=== PATIENT | male | born 1950 | race Hispanic/Latino ===

== ENCOUNTER 2018-07-01 00:40 | Emergency (ER) | payer BC ==
[~2018-07-01] VITALS: Ht 175.3 cm; Wt 95.7 kg
[~2018-07-01 00:40] MED LIST: CARAFATE1 GM/10 ML PO; FLOMAX0.4 MG PO; KLOR-CON 88 MEQ PO; LISINOPRIL-HCT1 EACH PO; METOPROLOL SUCC50 MG PO; MULTAQ 400MG T400 MG PO; PANTOPRAZOLE SO40 MG PO; SAVAYSA PO
[2018-07-01] MEDS ORDERED: LIDOCAINE JELLY 2% 10ML URO-JET TOP ONE (00:45)
[2018-07-01 02:28] LABS: BILIRUBIN,URINE NEGATIVE (NEGATIVE); CLARITY,URINE CLEAR (CLEAR); COLOR,URINE YELLOW (YELLOW); KETONES,URINE NEGATIVE (NEGATIVE); LEUKOCYTE ESTERASE ,URINE NEGATIVE (NEGATIVE); NITRITE,URINE NEGATIVE (NEGATIVE); PROTEIN,URINE DIPSTICK NEGATIVE (NEGATIVE); URINE UROBILINOGEN 0.2 mg/dL (0.2 - 1)
[2018-07-01 02:29] LABS: BACTERIA,URINE RARE /HPF; EPITHELIAL CELLS,URINE RARE /LPF; MUCUS,URINE MANY (RARE)
[2018-07-01 02:53] VITALS: BP 148/87
[2018-07-08] MEDS ORDERED: LISINOPRIL10 MG PO (09:37)
[2018-07-08] MEDS ORDERED: NEXIUM40 MG PO (09:38)
[2018-07-08] MEDS ORDERED: ASPIR 8181 MG PO (09:38)
[2018-07-08] MEDS ORDERED: HYDROCHLOROTHIA25 MG PO (09:38)
[2018-07-08] MEDS ORDERED: CEFDINIR300 MG PO (09:39)
== END 2018-07-01 03:29 | disposition home or self-care (01) ==
LOC: ER 00:40
DX: R33.9 Retention of urine, unspecified (principal); N40.1 Benign prostatic hyperplasia with lower urinary tract symptoms; N30.91 Cystitis, unspecified with hematuria; I10 Essential (primary) hypertension; I48.91 Unspecified atrial fibrillation; K21.9 Gastro-esophageal reflux disease without esophagitis
CPT/HCPCS: 51700; 81001; 87086; 99282

== ENCOUNTER 2018-07-10 12:00 | Observation (INO) | payer BC ==
[2018-07-05 14:14] LABS: BASOPHILS % 0.4 % (0.0-1.0); EOSINOPHILS # (AUTO) 0.2 (0.0-0.4); EOSINOPHILS % 3.1 % (0.0-6.0); HEMATOCRIT 40.8 % (38.2-49.6); HEMOGLOBIN 13.4 g/dL (14.0-18.0); LYMPHOCYTES # (AUTO) 1.8 (1.0-3.2); LYMPHOCYTES % 23.9 % (18.0-39.1); MEAN CORPUSCULAR HEMOGLOBIN 26.3 pg (28-32); MEAN CORPUSCULAR HGB CONC 32.8 g/dL (31-35); MONOCYTES # (AUTO) 0.6 (0.2-0.8); MONOCYTES % 8.3 % (4.4-11.3); NEUTROPHILS # (AUTO) 4.7 (2.1-6.9); PLATELET COUNT 254 x10e3/uL (140-360); RED CELL DISTRIBUTION WIDTH 14.3 % (11.7-14.4)
[2018-07-05 14:31] LABS: ALANINE AMINOTRANSFERASE 26 IU/L (0-55); ALBUMIN/GLOBULIN RATIO 1.4 (0.8-2.0); ALKALINE PHOSPHATASE 65 IU/L (40-150); ANION GAP 13.7 mmol/L (8-16); BLOOD UREA NITROGEN 19 mg/dL (7-26); BUN/CREATININE RATIO 21 (6-25); CALCIUM 9.3 mg/dL (8.4-10.2); CARBON DIOXIDE 27 mmol/L (22-29); CHLORIDE 102 mmol/L (98-107); CREATININE, SERUM 0.89 mg/dL (0.72-1.25); EST GLOMERULAR FILTRATION RATE > 60 ML/MIN (60-); GLUCOSE 134 mg/dL (74-118); POTASSIUM 3.7 mmol/L (3.5-5.1); SODIUM 139 mmol/L (136-145)
--- NOTE | 2018-07-05 14:41 | Diagnostic Imaging Report ---
EXAMINATION: CHEST 2 VIEWS INDICATION: Urinary retention. Preop COMPARISON: None FINDINGS: TUBES and LINES: None. LUNGS: Lungs are well inflated. Lungs are clear. There is no evidence of pneumonia or pulmonary edema. PLEURA: No pleural effusion or pneumothorax. HEART AND MEDIASTINUM: The cardiomediastinal silhouette is unremarkable. BONES AND SOFT TISSUES: No acute osseous lesion. Soft tissues are unremarkable. Surgical clips in the left upper abdomen. UPPER ABDOMEN: No free air under the diaphragm. IMPRESSION: No acute thoracic abnormality. Signed by: Dr. Jose Cruz Wright M.D. on 07/05/2018 2:37 PM
[~2018-07-10 12:00] MED LIST changes: +ASPIR 8181 MG PO; +CEFDINIR300 MG PO; +HYDROCHLOROTHIA25 MG PO; +LISINOPRIL10 MG PO; +NEXIUM40 MG PO
[2018-07-10] MEDS ORDERED: CEFAZOLIN SOD 1 GM/NS 50ML 50 ML IV ONE (12:47)
[2018-07-10] MEDS ORDERED: IOPAMIDOL 610MG/1ML 300 MG/ML VIAL IV ONE (13:53)
[2018-07-10] MEDS ORDERED: FENTANYL CITRATE/PF 100MCG/2 ML INJ ONE (14:32)
[2018-07-10] MEDS ORDERED: MIDAZOLAM HCL 2 MG/2 ML VIAL ONE (14:32)
--- NOTE | 2018-07-10 15:21 | Diagnostic Imaging Report ---
Exam: Bilateral retrograde ureterogram History: Urinary retention Comparison: None available Findings: There is retrograde catheterization of both ureteral orifices through a cystoscope. Contrast has been injected with evaluation of the upper and lower tracts of the ureters and collecting systems. A total of 7 fluoroscopic images were obtained and saved to the medical record. There is no evidence of hydronephrosis or intraluminal filling defects. Both distal ureters have a horizontal configuration and are J-shaped compatible with a prostatic enlargement. Fluoroscopy time: 15 seconds Cumulative area dose product: 182.32 cGycm2 Cumulative air kerma: 5.04 mGy Impression: 1. No evidence of hydronephrosis or intraluminal filling defects. 2. Findings compatible with prostatic enlargement. Signed by: Dr. Jagdeep Greenwood DO on 07/10/2018 3:18 PM
[2018-07-10] MEDS ORDERED: BELLADONNA/OPIUM 30 MG SUPP RC ONE (15:35)
--- OUTSIDE RECORDS SUMMARY | 2018-07-10 16:25 | XMS REPORT ---
Author Author [facility] Address Unknown Phone Unavailable Care Team Providers Care Finish Carpenter Name Role Phone DARCY MARTELL Unavailable Unavailable Problems This patient has no known problems. Allergies, Adverse Reactions, Alerts This patient has no known allergies or adverse reactions. Medications This patient has no known medications. Results Test Description Test Time Test Comments Text Results Atomic Results Result Comments RETROGRADE PYELOGRAM 2018-07-10 15:13:00 [place] [address] Patient Name: AUDIE JOSHUA MR #: [id number] : 1950 Age/Sex: 68/M Req #: [id number] [facility] Physician: Ordered by: DARCY MARTELL MD Report #: [id number] Location: OR Room/Bed: Procedure: [id number] DX/RETROGRADE PYELOGRAM Exam Date: 07/10/18 Exam Time: 1402 REPORT STATUS: Signed Exam: Bilateral retrograde ureterogram History: Urinary retention Comparison: None available Findings: There is retrograde catheterization of both ureteral orifices through a cystoscope. Contrast has been injected with evaluation of the upper and lower tracts of the ureters and collecting systems. A total of 7 fluoroscopic images were obtained and saved to the medical record. There is no evidence of hydronephrosis or intraluminal filling defects. Both distal ureters have a horizontal configuration and are J-shaped compatible with a prostatic enlargement. Fluoroscopy time: 15 seconds Cumulative area dose product: 182.32 cGycm2 Cumulative air kerma: 5.04 mGy Impression: 1. No evidence of hydronephrosis or intraluminal filling defects. 2. Findings compatible with prostatic enlargement. Signed by: Dr. Laura Greenwood DO on 07/10/2018 3:18 PM Dictated By: ALURA GREENWOOD DO 1518 Transcribed By: ABDOUL on 07/10/181517 COPY TO: DARCY MARTELL MD CHEST 2 VIEWS 2018-07-05 14:37:00 [place] [address] Patient Name: AUDIE JOSHUA MR #: [id number] : 1950 Age/Sex: 68/M Req #: [id number] Adm Physician: Ordered by: DARCY MARTELL MD Report #: [id number] Location: OR Room/Bed: Procedure: [id number] DX/CHEST 2 VIEWS Exam Date: 07/05/18 Exam Time: 1410 REPORT STATUS: Signed EXAMINATION: CHEST 2 VIEWS INDICATION: Urinary retention. Preop COMPARISON: None FINDINGS: TUBES and LINES: None. LUNGS: Lungs are well inflated. Lungs are clear. There is no evidence of pneumonia or pulmonary edema. PLEURA: No pleural effusion or pneumothorax. HEART AND MEDIASTINUM: The cardiomediastinal silhouette is unremarkable. BONES AND SOFT TISSUES: No acute osseous lesion. Soft tissues are unremarkable. Surgical clips in the left upper abdomen. UPPER ABDOMEN: No free air under the diaphragm. IMPRESSION: No acute thoracic abnormality. Signed by: Dr. Jose Cruz Wright M.D. on 07/05/2018 2:37 PM Dictated By: JOSE CRUZ WRIGHT MD, MD 1437 Transcribed By: ABDOUL on 07/05/18 1437 COPY TO: DARCY MARTELL MD
[2018-07-10 16:35] VITALS: BP 136/77
[2018-07-10] MEDS ORDERED: ONDANSETRON HCL INJ 2MG/ML 2ML 2 MG/ML VIAL IV PRN (16:45)
[2018-07-10] MEDS ORDERED: BELLADONNA/OPIUM 30 MG SUPP RC PRN (16:45)
[2018-07-10] MEDS ORDERED: HYDROMORPHONE 2MG/ML 2 MG/ML ML IV PRN (16:45)
--- NOTE | 2018-07-10 16:48 | Operative Report ---
DATE OF PROCEDURE: July 10, 2018 PREOPERATIVE DIAGNOSES 1. Urinary retention. 2. Left hydronephrosis. POSTOPERATIVE DIAGNOSES 1. Urinary retention. 2. Resolved left hydronephrosis of obstruction. OPERATIONS PERFORMED 1. Cystoscopy. 2. Retrograde pyelograms. 3. Partial transurethral resection of the prostate, first stage. ANESTHESIA: Staff, anesthesia general. BRIEF HISTORY: A 68-year-old male in urinary retention, left hydronephrosis of chronic retention, was seen in the office in urinary retention. Cystoscopy revealed a large prostate. Ultrasound of the prostate reveals a 183-gram prostate. Choices of treatment were given including a retropubic prostatectomy open and a 2-stage transurethral resection of the prostate. The patient did not want to have an open prostatectomy. Therefore, a transurethral resection of the prostate is being done today at patient's request. The patient understands that he has got such a huge prostate that I cannot remove even half of it in one sitting. We will be able to get him to urinate, but he will need to have a 2nd-stage TURP at a later time to remove more tissue. The patient also understands that he has severe trabeculation of the bladder, that we checked him in the office and he has a very low-capacity bladder even though he was in retention with over 1000 mL of urine. His bladder has shown uninhibited bladder contractions already; so, he understands he will have some urgency and urge incontinence after the catheter is removed. Hopefully he will be able to urinate and would need an operation immediately in the next 2 to 3 weeks. PROCEDURE: With the patient under satisfactory general anesthesia, the patient was placed in the supine position on the operating table. Legs were placed on stirrups. Genitalia was prepped with Betadine soap and solution and draped in The usual manner. A 22-Palestinian cystourethroscope was passed per urethra into the bladder, and the bladder was inspected. Foote catheter had been removed before the cystoscopy. It is seen that the patient has a very large intravesical component. The trigone and ureteral orifice could only be seen with the 7-degree angle lens. Severe trabeculation with cellules and saccules was identified. At this point, using the 7-degree angle lens and the Britney bridge, I was able to deflect the number 8 cone-tipped ureteral catheter downward, find the ureters and push 10 mL of contrast media up to both the right and the left side, noting that even though there was severe J-hooking of the ureter, there was no hydronephrosis. At this point, the cystoscope was removed, replaced by the continuous flow resectoscope bipolar with saline. Resection was done first of the intravesical component and then from bladder neck to verumontanum. This was done with the loop electrode. Approximately between 40 and 50 grams of prostate where resected, particularly the bladder neck to allow the patient to at least urinate so that we can get his catheter out as fast as possible. Once that was done, the TalentBin evacuator was used to remove all prostatic chips from the bladder, and the button electrode was used to electrofulgurate bleeders, particularly in the bladder neck and near the apical area of the prostate. At this point, under observation it was noted that there was no active arterial pumper in the prostatic fossa. Instruments were removed, and the 22-Palestinian Foote catheter was passed per urethra into the bladder and left indwelling. Irrigation was done until the return was clear. Then 30 mg of B and O suppository was placed in the rectum. At this point, the patient was taken to the recovery room in satisfactory condition. DISCHARGE INSTRUCTION: The patient was kept overnight for observation. If he met discharge criteria the next morning, which was tolerating diet, blood pressure within normal limits, and control of pain with tramadol, patient will discharge home with leg bag and an overnight bag. He is to continue all his medications at home. He was given Bactrim DS as well as tramadol for pain. He is to continue his regular diet. He is not to take any aspirin or blood thinners until he is seen in my office. He will be seen in my office within 5 days to remove the Foote catheter, give him a voiding trial. Patient and the family were told of the findings. We will continue to follow the patient. Job#: [id number] EV
[2018-07-10] MEDS: CEFDINIR 300 MG CAP PO SCH (17:22)
[2018-07-10] MEDS: DEXTROSE 5%/0.45% SOD CHL 1,000 ML IV SCH (17:22)
[2018-07-10] MEDS ORDERED: ONDANSETRON HCL INJ 2MG/ML 2ML 2 MG/ML VIAL ONE (17:49)
[2018-07-10] MEDS ORDERED: NEOSTIGMINE 5 MG/5ML SYR ONE (17:49)
[2018-07-10] MEDS ORDERED: DEXAMETHASONE SOD PHOS INJ 4 MG/ML VIAL ONE (17:49)
[2018-07-10] MEDS ORDERED: LIDOCAINE HCL 2% LOCAL INJ 5 ML SDV VIAL INJ ONE (17:49)
[2018-07-10] MEDS ORDERED: SEVOFLURANE INHAL SOLN 250 ML PEN BTL ONE (17:49)
[2018-07-10] MEDS ORDERED: PROPOFOL IV EMULSION 10 MG/ML 20 ML VIAL ONE (17:49)
[2018-07-10] MEDS ORDERED: GLYCOPYRROLATE INJ 1MG/ 5 ML SYR ONE (17:49)
--- NOTE | 2018-07-10 19:00 | NUR ---
received patient aaox3, stable condition. no needs voiced at this time. Foote intact, draining bright red. PRN irrigation performed, few small clots removed. pain denies pain. bed locked and in lowest position, call light within easy reach. will continue to monitor patient closely.
[2018-07-10 20:00] VITALS: BP 166/87
[2018-07-10 22:37] VITALS: BP 166/87
[2018-07-11] VITALS: BP 143/69
--- NOTE | 2018-07-11 00:48 | NUR ---
walking rounds complete, morley cath now draining clear yellow urine. patient denies any pain. bed locked and in lowest position, call light within easy reach.
[2018-07-11] MEDS: DEXTROSE 5%/0.45% SOD CHL 1,000 ML IV SCH (00:56)
[2018-07-11 04:00] VITALS: BP 163/78
[2018-07-11] MEDS ORDERED: ULTRAM50 MG PO (07:26)
[2018-07-11] MEDS ORDERED: BACTRIM DS TAB1 EACH PO (07:27)
[2018-07-11 08:00] VITALS: BP 143/75
[2018-07-11 08:01] VITALS: BP 143/75
[2018-07-11] MEDS: CEFDINIR 300 MG CAP PO SCH (08:12)
--- NOTE | 2018-07-11 08:35 | NUR ---
TAUGHT PT ABOUT LEG BAG TRANSFER. PT VERBALIZED UNDERSTANDING, PRESCRIPTIONS AND DC INSTRUCTIONS GIVEN. PT IS NOW OFF UNIT VIA WHEEL CHAIR TO HOME
[2018-07-11] MEDS ORDERED: PANTOPRAZOLE SOD 40 MG TABEC PO SCH (09:00)
[2018-07-11] MEDS ORDERED: TAMSULOSIN HCL 0.4 MG CAP PO SCH (09:00)
[2018-07-11] MEDS ORDERED: HYDROCHLOROTHIAZIDE 25 MG TAB PO SCH (09:00)
[2018-07-11] MEDS ORDERED: LISINOPRIL 10 MG TAB PO SCH (09:00)
== END 2018-07-11 08:35 | disposition home or self-care (01) ==
LOC: OR 12:00 → PACU V 16:08 → MED/SURG 16:32
PROVIDERS: ADMIT Urology; ATTEND Urology
DX: N40.1 Benign prostatic hyperplasia with lower urinary tract symptoms (principal); R33.8 Other retention of urine; N41.0 Acute prostatitis; N32.89 Other specified disorders of bladder; I10 Essential (primary) hypertension; Z79.82 Long term (current) use of aspirin; I48.91 Unspecified atrial fibrillation; Z87.442 Personal history of urinary calculi; Z01.810 Encounter for preprocedural cardiovascular examination; Z01.812 Encounter for preprocedural laboratory examination; Z01.811 Encounter for preprocedural respiratory examination
CPT/HCPCS: 36415; 52601; 71046; 74420; 80053; 85025; 87086; 88305; 93005; G0378 ×2; J0690; J1100; J1170; J2001; J2250; J2405; J2704; J3490; Q9967; S0164

== ENCOUNTER 2019-09-04 07:00 | Observation (INO) | payer BC ==
[~2019-09-04] VITALS: Ht 172.7 cm; Wt 86.6 kg
[~2019-09-04 07:00] MED LIST changes: +BACTRIM DS TAB1 EACH PO; +ULTRAM50 MG PO
--- OUTSIDE RECORDS SUMMARY | 2019-09-04 07:03 | XMS REPORT | Encounter Summary ---
Author Organization Unknown Address [address] [place] [address] Phone [phone] Care Team Providers Care Dial Marker Name Role Phone Dr. Yang Rodriguez 3 [phone] Duane Altman MD 82 [phone] Reason for Visit Type 2 diabetes mellitus without complication; Hypertriglyceridemia; Hypercholesterolemia; Benign essential hypertension; Benign prostatic hyperplasia Instructions 1. Type 2 diabetes mellitus without complication HbA1c (hemoglobin A1c), blood CMP, serum or plasma lipid panel, serum 2. Hypercholesterolemia 3. Essential hypertension hydrochlorothiazide 25 mg tablet lisinopril 40 mg tablet 4. At risk for falls preventing falls: care instructions 5. Depression screening learning about depression 6. Body mass index 30+ - obesity body mass index: care instructions learning about healthy weight 7. History of transurethral prostatectomy Discussion Note: None recorded. Plan of Care Patient Instructions continue all meds /exercise/< wgt Reminders Provider Appointments Est Patient on or around 09/11/2018 Yoli Rodriguez MD Return to Office on or around 12/03/2018 Yang Rodriguez MD Lab HbA1C (Hemoglobin a1C), Blood 09/02/2018 [facility] CMP, Serum or Plasma 09/02/2018 [facility] Lipid Panel, Serum 09/02/2018 [facility] Referral None recorded. Procedures None recorded. Surgeries None recorded. Imaging None recorded. Medications Name Start Date Accu-Chek Meri Plus test strips Take 1 strip every day by miscell. route as needed for 90 days. Accu-Chek Softclix Lancets Take 1 each every day by miscell. route as needed. aspirin 81 mg tablet,delayed release TAKE 1 TABLET BY MOUTH EVERY DAY esomeprazole magnesium 40 mg capsule,delayed release Take 1 capsule every day by oral route for 30 days. 09/02/2018 hydrochlorothiazide 25 mg tablet TAKE 1 TABLET BY MOUTH EVERY DAY hydroxyzine pamoate 25 mg capsule Take 1 capsule 3 times a day by oral route. lisinopril 40 mg tablet TAKE 1 TABLET BY MOUTH EVERY DAY sucralfate 1 gram tablet Take 1 tablet 4 times a day by oral route for 30 days. tamsulosin 0.4 mg capsule TAKE 1 CAPSULE BY MOUTH EVERY DAY Medications Administered None recorded. Vitals Height Weight BMI Blood Pressure 5 ft 8 in 207.8 lbs 31.6 kg/m2 116/60 mm[Hg] Lab Results None recorded. Allergies Code Code System Name Reaction Severity Status Onset NKDA Problems Name Status Onset Date Source Hypertriglyceridemia Active 04/21/2016 Body Mass Index 30+ - Obesity Active 04/21/2016 Benign Essential Hypertension Active 04/21/2016 Atrial Fibrillation Active 04/21/2016 Benign Prostatic Hyperplasia Active 04/21/2016 Type 2 Diabetes Mellitus without Complication Active 05/08/2016 Hypercholesterolemia Active 05/08/2016 Heart Murmur Active 08/15/2016 Procedures Date Name Performed by Fragmenting of Kidney Stone Information not available Vaccine List Vaccine Type influenza, high dose seasonal 03/21/2018 Influenza, injectable, MDCK, quadrivalent 03/23/20170.5 mL influenza, seasonal, injectable 04/21/20160.5 mL influenza, unspecified formulation 03/07/2011 03/01/2012 02/13/2014 pneumococcal conjugate PCV 13 03/21/2018 pneumococcal polysaccharide PPV23 05/08/20160.5 mL zoster 05/08/20160.65 mL Social History Smoking Status Never Smoker Past Encounters 09/02/2018 Type 2 Diabetes Mellitus without Complication; Hypercholesterolemia; Essential Hypertension; At Risk for Falls; Depression Screening; Body Mass Index 30+ - Obesity; History of Transurethral Prostatectomy Yang Rodriguez MD: [facility] [place] [address], Ph. History of Present Illness Note:f/u chronic conditions,compliant with meds /exercise,turp 4 months ago Review of Systems:ROS as noted in the HPI Review of Systems None recorded. Physical Exam Cardiology Exam Reported By: Patient Constitutional: General Appearance: well-developed, appears stated age, obese. Level of Distress: comfortable Psychiatric: Mental Status: alert, normal affect. Orientation: oriented to time, place, and person. Insight: good judgment Eyes: Lids and Conjunctivae: non-injected, anicteric, no discharge, no pallor, no arcus senilis, no xanthelasma. Pupils: PERRLA Neck: Neck: supple, trachea midline, no masses, FROM. Carotid Arteries: bilateral normal upstroke, no bruits, no thrills. Cervical Lymph Nodes: non tender, not enlarged. Thyroid: not enlarged, non tender, no nodules Lungs: Respiratory Effort: unlabored. Chest Exam: normal curvature, no thoracic deformity, no chest wall tenderness. Percussion: resonant. Auscultation: clear, no wheezing, no rales, no rhonchi Cardiovascular: Precordial Exam: non displaced focal PMI, no heaves, no precordial thrills. Rate And Rhythm: regular. Heart Sounds: normal S1, physiologically split S2, no rub, no gallop, no click. Systolic Murmur: not heard. Diastolic Murmur: not heard. Extremities: no cyanosis, no edema, no peripheral signs of emboli Skin: Inspection and Palpation: warm and dry. Nails: no clubbing
--- OUTSIDE RECORDS SUMMARY | 2019-09-04 07:03 | XMS REPORT | Encounter Summary ---
Author Organization Unknown Address [address] [place] [address] Phone [phone] Care Team Providers Care Sales Order Processor Name Role Phone Dr. Yang Rodriguez 3 [phone] Duane Altman MD 82 [phone] Colin Santiago MD 107 [phone] Luis Mayorga MD 115 [phone] Reason for Visit allergies; cough / congestion Instructions 1. Body mass index 30+ - obesity body mass index: care instructions learning about healthy weight 2. Allergic rhinitis Kenalog 40 mg/mL suspension for injection fluticasone propionate 50 mcg/actuation nasal spray,suspension 3. Acute bronchitis Zithromax Z-Reza 250 mg tablet Cheratussin AC 10 mg-100 mg/5 mL oral liquid Discussion Note: None recorded. Plan of Care Reminders Provider Appointments None recorded. Lab None recorded. Referral None recorded. Procedures None recorded. Surgeries None recorded. Imaging None recorded. Medications Name Start Date Accu-Chek Meri Plus test strips Take 1 strip every day by miscell. route as needed for 90 days. Accu-Chek Softclix Lancets Take 1 each every day by miscell. route as needed. aspirin 81 mg tablet,delayed release TAKE 1 TABLET BY MOUTH EVERY DAY Cheratussin AC 10 mg-100 mg/5 mL oral liquid Take 10 mL every 4 hours by oral route. fluticasone propionate 50 mcg/actuation nasal spray,suspension [place] 1 spray every day by intranasal route. hydrochlorothiazide 25 mg tablet TAKE 1 TABLET BY MOUTH EVERY DAY lisinopril 40 mg tablet TAKE 1 TABLET BY MOUTH EVERY DAY sucralfate 1 gram tablet Take 1 tablet 4 times a day by oral route for 30 days. tamsulosin 0.4 mg capsule TAKE 1 CAPSULE BY MOUTH EVERY DAY Zithromax Z-Reza 250 mg tablet TAKE 2 TABLETS (500 MG) BY ORAL ROUTE ONCE DAILY FOR 1 DAY THEN 1 TABLET (250 MG) BY ORAL ROUTE ONCE DAILY FOR 4 DAYS Medications Administered None recorded. Vitals Height Weight BMI Blood Pressure 5 ft 8 in 204.8 lbs 31.1 kg/m2 134/74 mm[Hg] Lab Results Date Name Specimen Result Interpretation Description Value Range Status Address 09/02/2018 CMP, Serum or Plasma Alt 22 U/L 0-55 U/L Final [facility]: [address] [place] [address], [place] Ast 17 U/L 5-34 U/L Final [facility]: [address] [place] [address], [place] Bun 17.9 mg/dL 8.4-25.7 mg/dL Final [facility]: [address] [place] [address], [place] Alk Phos 64 unit/L 40-150 unit/L Final [facility]: [address] [place] [address], [place] High Glucose 141 mg/dL 70-99 mg/dL Final [facility]: [address] [place] [address], [place] Albumin 3.6 g/dL 3.5-5.0 g/dL Final [facility]: [address] Creatinine 0.76 mg/dL 0.72-1.25 mg/dL Final [facility]: [address] eGFR Non- >60 mL/min/1.73m2 Final [facility]: [address] Total Bilirubin 0.4 mg/dL 0.2-1.2 mg/dL Final [facility]: [address] eGFR - >60 mL/min/1.73m2 Final [facility]: [address] Sodium 140 mEq/L 136-145 mEq/L Final [facility]: [address] Potassium 4.0 mEq/L 3.5-5.1 mEq/L Final [facility]: [address] [place] [address], [place] Chloride 107 mmol/L 98-107 mmol/L Final [facility]: [address] Total Protein 6.4 g/dL 6.4-8.3 g/dL Final [facility]: [address] Calcium 9.0 mg/dL 8.8-10.0 mg/dL Final [facility]: [address] [place] [address], [place] Co2 28.8 mmol/L 23.0-31.0 mmol/L Final [facility]: [address] [place] [address], [place] Anion Gap [address] [facility]: [address] [place] [address], [place] 09/02/2018 Lipid Panel, Serum Low Hdl 35 mg/dL 40-60 mg/dL Final [facility]: [address] [place] [address], [place] Triglyceride 120 mg/dL 0-149 mg/dL Final [facility]: [address] [place] [address], [place] VLDL Calc. 24 mg/dL Final [facility]: [address] [place] [address], [place] cholesterol/HDL Ratio 4.5 mg/dL Final [facility]: [address] [place] [address], [place] non-HDL Cholesterol Calc. 121 mg/dL 0-160 mg/dL Final [facility]: [address] [place] [address], [place] Cholesterol 156 mg/dL 0-199 mg/dL Final [facility]: [address] [place] [address], [place] LDL Calc. 97 mg/dL 0-130 mg/dL Final [facility]: [address] [place] [address], [place] 09/02/2018 HbA1C (Hemoglobin a1C), Blood High A1C W/eag 6.5 % 1.0-5.7 % Final [facility] Laboratory: [address] Average Blood Glucose 140 mg/dL Final [facility] Laboratory: [address] Allergies Code Code System Name Reaction Severity [...] History Smoking Status Never Smoker Past Encounters 09/18/2018 Body Mass Index 30+ - Obesity; Allergic Rhinitis; Acute Bronchitis Yang Rodriguez MD: [address] [place] [address], Ph. 09/02/2018 Type 2 Diabetes Mellitus without Complication; Hypercholesterolemia; Essential Hypertension; At Risk for Falls; Depression Screening; Body Mass Index 30+ - Obesity; History of Transurethral Prostatectomy Yang Rodriguez MD: [address] [place] [address], Ph. History of Present Illness Note:2 d h/o nasal allergies-watery eyes/congestion-none productive cough Review of Systems:ROS as noted in the HPI Review of Systems None recorded. Physical Exam Upper Respiratory Infection Exam Comprehensive Reported By: Patient Constitutional: General Appearance in no acute distress Skin: Inspection and palpation: no rash, no lesions, no ulcer, good turgor, no jaundice Head: Sinuses no tenderness Eyes: Pupils EOM intact, PERRLA, conjunctiva non-injected Ears: Right External auditory canal normal appearance, no obstruction, no erythema, no discharge. Left External auditory canal normal appearance, no obstruction, no erythema, no discharge. Right Tympanic membrane mobile with pneumatic otoscopy, pearly garcia, landmarks clear. Left Tympanic membrane: mobile with pneumatic otoscopy, pearly garcia, landmarks clear Nose: Nasal Skin: no lesion, no lacerations. Nasal Mucosa normal, pink and moist Oral Cavity/Mouth: Lips, teeth, gums normal lips, normal gums. Oral Mucosa: normal, moist, no lesions. Palate: normal hard palate, normal soft palate. Tongue: normal tongue, no lesion, no edema. Tonsils: normal tonsils, no lesions. Posterior pharynx: erythema Lymph Nodes: Cervical no palpable lymph node enlargement, no submandibular adenopathy, no posterior cervical adenopathy, no anterior cervical adenopathy, no supraclavicular adenopathy Neck: Neck symmetrical, trachea midline Lungs: Respiratory effort unlabored. Auscultation breath sounds normal, no wheezing, no rales / crackles, no rhonchi Cardiovascular System: Auscultation regular rate and rhythm, no murmur, no rubs, no gallops. Observation/Palpation of peripheral vascular system no varicosities, carotid pulse normal, no edema
--- OUTSIDE RECORDS SUMMARY | 2019-09-04 07:03 | XMS REPORT | Encounter Summary ---
Author Organization Unknown Address [address] [place] [address] Phone [phone] Care Team Providers Care Fuel Cell Repairer Name Role Phone Dr. aYng Rodriguez 3 [phone] Duane Altman MD 82 [phone] Colin Santiago MD 107 [phone] Luis Mayorga MD 115 [phone] Reason for Visit skin problem/rash Instructions 1. Gastroesophageal reflux disease esomeprazole magnesium 40 mg capsule,delayed release 2. Body mass index 30+ - obesity learning about healthy weight 3. Depression screening learning about depression 4. Infection by Taenia Lotrisone 1 %-0.05 % topical cream Discussion Note: None recorded. Plan of Care Patient Instructions meds as directed /rtc 1 week if no improvement Reminders Provider Appointments None recorded. Lab None [...] day by oral route for 30 days. hydrochlorothiazide 25 mg tablet TAKE 1 TABLET BY MOUTH EVERY DAY lisinopril 40 mg tablet TAKE 1 TABLET BY MOUTH EVERY DAY Lotrisone 1 %-0.05 % topical cream APPLY TO THE AFFECTED AND SURROUNDING AREAS OF SKIN BY TOPICAL ROUTE 2 TIMES PER DAY IN THE MORNING AND EVENING FOR 2 WEEKS sucralfate 1 gram tablet Take 1 tablet 4 times a day by oral route for 30 days. tamsulosin 0.4 mg capsule TAKE 1 CAPSULE BY MOUTH EVERY DAY Medications Administered None recorded. Vitals Height Weight BMI Blood Pressure 5 ft 8 in 199.6 lbs 30.3 kg/m2 130/68 mm[Hg] Lab Results Date Name Specimen Result Interpretation Description Value Range Status Address 09/02/2018 CMP, Serum or Plasma Alt 22 U/L 0-55 U/L Final [facility]: [address], [place] Ast 17 U/L 5-34 U/L Final [facility]: [address] Bun 17.9 mg/dL 8.4-25.7 mg/dL Final [facility]: [address] Alk Phos 64 unit/L 40-150 unit/L Final [facility]: [address] High Glucose 141 mg/dL 70-99 mg/dL Final [facility]: [address] Albumin 3.6 g/dL 3.5-5.0 g/dL Final [facility]: [address] Creatinine 0.76 mg/dL 0.72-1.25 mg/dL Final [facility]: [address] [place] [address] eGFR Non- >60 mL/min/1.73m2 Final [facility]: [address] Total Bilirubin 0.4 mg/dL 0.2-1.2 mg/dL Final [facility]: [address] [facility] eGFR - >60 mL/min/1.73m2 Final [facility]: [address] Sodium 140 mEq/L 136-145 mEq/L Final [facility]: [address] [facility], [place] Potassium 4.0 mEq/L 3.5-5.1 mEq/L Final [facility]: [address] Chloride 107 mmol/L 98-107 mmol/L Final [facility]: [address] [facility] Total Protein 6.4 g/dL 6.4-8.3 g/dL Final [facility]: [address] Calcium 9.0 mg/dL 8.8-10.0 mg/dL Final [facility]: [address] Co2 28.8 mmol/L 23.0-31.0 mmol/L Final [facility]: [address] [place] [address], [place] Anion Gap 4 calc Final [facility]: [address] [place] [address], [place] 09/02/2018 Lipid Panel, Serum Low Hdl 35 mg/dL 40-60 mg/dL Final [facility]: [address] [place] [address], [place] Triglyceride 120 mg/dL 0-149 mg/dL Final [facility]: [address] [place] [address], [place] VLDL Calc. 24 mg/dL Final [facility]: [address] cholesterol/HDL Ratio 4.5 mg/dL Final [facility]: [address] [address], [place] non-HDL Cholesterol Calc. 121 mg/dL 0-160 mg/dL Final [facility]: [address] [place] [address], [place] Cholesterol 156 mg/dL 0-199 mg/dL Final [facility]: [address] [address], [place] LDL Calc. 97 mg/dL 0-130 mg/dL Final [facility]: [address] [place] [address], [place] 09/02/2018 HbA1C (Hemoglobin a1C), Blood High A1C W/eag 6.5 % 1.0-5.7 % Final [facility]: [address] [place] [address], [place] Average Blood Glucose 140 mg/dL Final [facility]: [address] Allergies Code Code System Name [...] History Smoking Status Never Smoker Past Encounters 10/03/2018 Gastroesophageal Reflux Disease; Body Mass Index 30+ - Obesity; Depression Screening; Infection by Taenia Yang Rodriguez MD: [address] [place] [phone], Ph. 09/18/2018 Body Mass Index 30+ - Obesity; Allergic Rhinitis; Acute Bronchitis Yang Rodriguez MD: [address] [place] [phone], Ph. 09/02/2018 Type 2 Diabetes Mellitus without Complication; Hypercholesterolemia; Essential Hypertension; At Risk for Falls; Depression Screening; Body Mass Index 30+ - Obesity; History of Transurethral Prostatectomy Yang Rodriguez MD: [address] [place] [phone], Ph. History of Present Illness Note:1 week h/o pruritic R mastoid area rash, forehead spread last 3 days<div> similar rash successfully treated Mar 2018 as t.corporis</div> Review of Systems:ROS as noted in the HPI Review of Systems None recorded. Physical Exam General Adult Exam (male) Reported By: Patient Skin: Inspection and palpation: rash; 3/4 circ lesion R mastoid no obvious fore head
--- OUTSIDE RECORDS SUMMARY | 2019-09-04 07:04 | XMS REPORT | Encounter Summary ---
Author Organization Unknown Address [address] [place] [address] Phone [phone] Care Team Providers Care Generation Technician Name Role Phone Dr. Yang Rodriguez 3 [phone] Duane Altman MD 82 [phone] Colin Santiago MD 107 [phone] Luis Mayorga MD 115 [phone] Reason for Visit allergies Instructions 1. Obesity learning about healthy weight 2. Allergic rhinitis Kenalog 40 mg/mL suspension for injection 3. Acute bronchitis Zithromax Z-Reza 250 mg tablet codeine 10 mg-guaifenesin 100 mg/5 mL oral liquid 4. Primary erectile dysfunction Viagra 100 mg tablet Discussion Note: None recorded. Plan of Care Patient Instructions meds as directed + otc antihistamines,advised against flu shot for 6 weeks due to kenalog rx Reminders Provider Appointments None recorded. Lab None recorded. Referral None recorded. Procedures None recorded. Surgeries None recorded. Imaging None recorded. Medications Name Start Date aspirin 81 mg tablet,delayed release TAKE 1 TABLET BY MOUTH EVERY DAY cetirizine 10 mg tablet Take 1 tablet every day by oral route as needed. codeine 10 mg-guaifenesin 100 mg/5 mL oral liquid Take 10 mL every 4 hours by oral route. lisinopril 40 mg tablet TAKE 1 TABLET BY MOUTH EVERY DAYDUE sucralfate 1 gram tablet Viagra 100 mg tablet Take 1 tablet every day by oral route. Zithromax Z-Reza 250 mg tablet TAKE 2 TABLETS (500 MG) BY ORAL ROUTE ONCE DAILY FOR 1 DAY THEN 1 TABLET (250 MG) BY ORAL ROUTE ONCE DAILY FOR 4 DAYS Medications Administered None recorded. Vitals Height Weight BMI Blood Pressure 5 ft 8 in 202.4 lbs 30.8 kg/m2 116/74 mm[Hg] Results Lab Results None recorded. Allergies Code Code [...] 05/08/20160.5 mL zoster 05/08/20160.65 mL Social History Tobacco Smoking Status Never Smoker Past Encounters 03/14/2019 Obesity; Allergic Rhinitis; Acute Bronchitis; Primary Erectile Dysfunction Yang Rodriguez MD: [facility] [place] [address], Ph. History of Present Illness Note:1 week h/o sneezing/watery eyes/green mucoid productive cough <div> requesting meds for ed<div>concerned taking steroid and flu shot at same time< /div></div> Review of Systems:ROS as noted in the HPI Review of Systems None recorded. Physical Exam Upper Respiratory Infection Exam Comprehensive Reported By: Patient Constitutional: General Appearance in no acute distress Skin: Inspection and palpation: no rash, no lesions, no ulcer, good turgor, no jaundice Head: Sinuses no tenderness Eyes: Pupils EOM intact, PERRLA, injection of the conjunctiva Ears: Right External auditory canal normal appearance, [...] Tonsils: normal tonsils, no lesions. Posterior pharynx: normal Lymph Nodes: Cervical no palpable lymph node [...]
--- OUTSIDE RECORDS SUMMARY | 2019-09-04 07:04 | XMS REPORT | Encounter Summary ---
Author Organization Unknown Address [address] [place] [address] Phone [phone] Care Team Providers Care Quality Eng Name Role Phone Dr. Yang Rodriguez 3 [phone] Duane Altman MD 82 [phone] Colin Santiago MD 107 [phone] Luis Mayorga MD 115 [phone] Reason for Visit Benign essential hypertension Instructions 1. Benign essential hypertension hydrochlorothiazide 25 mg tablet lisinopril 40 mg tablet CBC w/ auto diff 2. Type 2 diabetes mellitus without complication HbA1c (hemoglobin A1c), blood microalbumin/creatinine, mass ratio, urine CBC w/ auto diff iron + TIBC + ferritin, serum diabetic ophthalmology referral - Please contact patient to schedule. Thank you! 3. Hypercholesterolemia lipid panel, serum 4. Gastroesophageal reflux disease without esophagitis gastroenterology referral - Please contact patient to schedule. Thank you! 5. Benign prostatic hyperplasia urology referral - Please contact patient to schedule. Thank you! 6. Atrial fibrillation cardiology referral - Please contact patient to schedule. Thank you! 7. Body mass index 30+ - obesity body mass index: care instructions learning about healthy weight 8. Immunization Shingrix Adjuvant Component (PF) intramuscular suspension 9. Screening for malignant neoplasm of prostate PSA, serum or plasma 10. Screening for osteoporosis DEXA - Please contact patient to schedule. Thank you! Discussion Note: None recorded. Plan of Care Reminders Provider Appointments Return to Office on or around 10/06/2019 Melanie Solorzano NP Lab Lipid Panel, Serum 07/08/2019 [facility] HbA1C (Hemoglobin a1C), Blood 07/08/2019 [facility] Microalbumin/creatinine, Mass Ratio, Urine 07/08/2019 [facility] CBC W/ Auto Diff 07/08/2019 [facility] PSA, Serum or Plasma 07/08/2019 [facility] CBC W/ Auto Diff 07/08/2019 [facility] Iron + TIBC + Ferritin, Serum 07/08/2019 [facility] Referral Cardiology Referral 07/08/2019 Duane Altman MD Urology Referral 07/08/2019 Luis Mayorga MD Gastroenterology Referral 07/08/2019 Colin Santiago MD Diabetic Ophthalmology Referral 07/08/2019 Lamine Mayorga MD (Ophthalmology) Procedures None recorded. Surgeries None recorded. Imaging Dexa 07/08/2019 [facility] Medications Name Start Date aspirin 81 mg tablet,delayed release TAKE 1 TABLET BY MOUTH EVERY DAY cetirizine 10 mg tablet Take 1 tablet every day by oral route as needed. hydrochlorothiazide 25 mg tablet TAKE 1 TABLET BY MOUTH EVERY DAY lisinopril 40 mg tablet TAKE 1 TABLET BY MOUTH EVERY DAY Medications Administered None recorded. Vitals Height Weight BMI Blood Pressure 5 ft 8 in 201 lbs 30.6 kg/m2 126/70 mm[Hg] Results Lab Results None recorded. Allergies [...] Fragmenting of Kidney Stone Information not available 07/08/2019 Dexa [facility] [address] [place], [place] [id number] (Work Place) Vaccine List Vaccine Type influenza, high dose seasonal 03/21/2018 Influenza, injectable, MDCK, quadrivalent 03/23/20170.5 mL influenza, injectable, quadrivalent 04/16/2019 influenza, seasonal, injectable 04/21/20160.5 mL influenza, unspecified formulation 03/07/2011 03/01/2012 02/13/2014 pneumococcal conjugate PCV 13 03/21/2018 pneumococcal polysaccharide PPV23 05/08/20160.5 mL Tdap 04/26/2019 zoster live 05/08/20160.65 mL zoster recombinant 07/08/20190.5 mL Social History Tobacco Smoking Status Never Smoker Past Encounters 07/08/2019 Benign Essential Hypertension; Type 2 Diabetes Mellitus without Complication; Hypercholesterolemia; Gastroesophageal Reflux Disease without Esophagitis; Benign Prostatic Hyperplasia; Atrial Fibrillation; Body Mass Index 30+ - Obesity; Immunization; Screening for Malignant Neoplasm of Prostate; Screening for Osteoporosis Melanie Solorzano QUALITY ASSURANCE TEST PROGRAM MANAGER: [address] [place] [address], Ph. History of Present Illness Note:1. HTN
- current med(s): HCTZ 25 mg and lisinopril 40 mg
- medication compliance: daily
- home BP range: 120- 160/80-85 mmhg
- adverse reactions: no
- diet: yes and exercise: no
- Denies HAs, CP, SOB, acute visual changes
<div>
</div><div>2. Under care of Dr. Ford for Afib, due for yearly f/u visit .</div><div>
</div><div>3. DM on 09/02/18 was 6.5. Patient not on any medications, managed by diet.

</div><div>4. Under care of Dr. Santiago for GERD, hiatal hernia, due for follow up visit. < /div><div>
</div><div>5. Does f/u with urology Dr. Mayorga for BPH.</div> Review of Systems Comprehensive Adult Problem ROS Reported By: Patient Constitutional: Constitutional: no significant weight change, no fatigue Eyes: Eyes: ; denies vision disturbances Cardiovascular: Cardiovascular: no chest pain, normal heart rate; no pedal edema Respiratory: Respiratory: no cough, no wheezing, no chest tightness, normal respiration Gastrointestinal: GI: no abdominal pain, no vomiting, no diarrhea, no constipation Musculoskeletal: Musculoskeletal: no soft tissue swelling, no joint swelling Skin: Skin: no rash Neurological symptoms: Neuro: no numbness, no tingling, no headache, no dizziness Psychiatric: Psych: no depression, no anxiety Physical Exam General Adult Exam (Female) Reported By: Patient Constitutional: General Appearance: healthy-appearing, well-developed, obese. Level of Distress: NAD. Ambulation: ambulating normally Psychiatric: Mental Status: active and alert, normal mood, normal affect. Orientation: to time, to place, to person Lungs: Respiratory effort: no dyspnea. Auscultation: breath sounds normal, good air movement, no wheezing, no rales/crackles, no rhonchi Cardiovascular: Apical Impulse: not displaced. Heart Auscultation: RRR, normal S1, normal S2, murmur Abdomen: Bowel Sounds: normal. Inspection and Palpation: soft, non-distended, no tenderness, no guarding, no rebound tenderness, no masses, no CVA tenderness. Liver: non-tender, no hepatomegaly. Spleen: non-tender, no splenomegaly Musculoskeletal:: Joints, Bones, and Muscles: normal movement of all extremities. Extremities: no edema Neurologic: Gait and Station: normal gait, normal station Skin: Inspection and palpation: no rash
--- OUTSIDE RECORDS SUMMARY | 2019-09-04 07:04 | XMS REPORT | Encounter Summary ---
Author Organization Unknown Address [address] [place] [address] Phone [phone] Care Team Providers Care Distance Learning Administrator Name Role Phone Dr. Yang Rodriguez 3 [phone] Duane Altman MD 82 [phone] Colin Santiago MD 107 [phone] Luis Mayorga MD 115 [phone] Reason for Visit cough / congestion Instructions 1. Acute bronchitis Zithromax Z-Reza 250 mg tablet Cheratussin AC 10 mg-100 mg/5 mL oral liquid 2. Allergic rhinitis Kenalog 40 mg/mL suspension for injection cetirizine 10 mg tablet 3. Body mass index 30+ - obesity body mass index: care instructions learning about healthy weight 4. Obesity 5. Benign essential hypertension Discussion Note: None recorded. Plan of Care Reminders Provider Appointments None recorded. Lab None recorded. Referral None recorded. Procedures None recorded. Surgeries None recorded. Imaging None recorded. Medications Name Start Date aspirin 81 mg tablet,delayed release TAKE 1 TABLET BY MOUTH EVERY DAY cetirizine 10 mg tablet Take 1 tablet every day by oral route as needed. Cheratussin AC 10 mg-100 mg/5 mL oral liquid Take 10 mL every 4 hours by oral route. esomeprazole magnesium 40 mg capsule,delayed release Take 1 capsule every day by oral route for 30 days. Kenalog 40 mg/mL suspension for injection Take 40 mg by injection route. lisinopril 40 mg tablet TAKE 1 TABLET BY MOUTH EVERY DAYDUE tamsulosin 0.4 mg capsule TAKE ONE CAPSULE BY MOUTH EVERY DAY Zithromax Z-Reza 250 mg tablet TAKE 2 TABLETS (500 MG) BY ORAL ROUTE ONCE DAILY FOR 1 DAY THEN 1 TABLET (250 MG) BY ORAL ROUTE ONCE DAILY FOR 4 DAYS Medications Administered Name Date Kenalog 40 mg/mL suspension for injection Take 40 mg by injection route. [id number]:[id number] Vitals Height Weight BMI Blood Pressure 5 ft 8 in 204.5 lbs 31.1 kg/m2 (1) 150/84 mm[Hg] (2) 150/78 mm[Hg] Lab Results None recorded. Allergies Code [...] Tobacco Smoking Status Never Smoker Past Encounters 12/03/2018 Acute Bronchitis; Allergic Rhinitis; Body Mass Index 30+ - Obesity; Obesity; Benign Essential Hypertension Yoli Rodriguez MD: [address] [place] [phone], Ph. History of Present Illness Note:68yo male presents for evaluation of cough, sore throat, mucus for the past 3-4days. Getting worse. No fever. Cough productive of light green/dexter phlegm. Not coughing blood. Had similar cough last September which responded well to Z-reza, Cheratussin, and Kenalog shot. Still has Flonase nasal spray to use at home, does not need refill.<div>Hx of seasonal allergies. Has tried allergy pills OTC (claritin & miguelina), NyQuil, mucinex, tylenol, and advil. Usually only has allergy trouble in spring & summer. Has never seen ENT or supervisor maintenance</div> Review of Systems:ROS as noted in the HPI Review of Systems Comprehensive General Adult ROS Reported By: Patient Constitutional: Constitutional: no fever Eyes: Eyes: no vision change ENMT: Ears: no difficulty hearing, no ear pain. Nose: no frequent nosebleeds, nose problems, sinus problems. Mouth/Throat: sore throat Cardiovascular: Cardiovascular: no chest pain Respiratory: Respiratory: no wheezing, no shortness of breath, no coughing up blood, cough Gastrointestinal: Gastrointestinal: no abdominal pain, no nausea, no vomiting, no diarrhea Neurologic: Neurologic: no headaches Endocrine: Endocrine: fatigue Allergic/Immunologic: Allergy/Immunologic: runny nose, sinus pressure Physical Exam Upper Respiratory Infection Exam Comprehensive [...] / crackles, no rhonchi Cardiovascular System: Auscultation no rubs, no gallops. Observation/Palpation of peripheral vascular system no varicosities, carotid pulse normal, no edema
[2019-09-04 07:24] LABS: BASOPHILS % 0.6 % (0.0-1.0); EOSINOPHILS # (AUTO) 0.2 (0.0-0.4); EOSINOPHILS % 4.6 % (0.0-6.0); HEMATOCRIT 42.2 % (38.2-49.6); HEMOGLOBIN 12.9 g/dL (14.0-18.0); LYMPHOCYTES # (AUTO) 1.2 (1.0-3.2); MEAN CORPUSCULAR HEMOGLOBIN 24.7 pg (28-32); MEAN CORPUSCULAR HGB CONC 30.6 g/dL (31-35); MEAN CORPUSCULAR VOLUME 80.8 fL (81-99); MONOCYTES # (AUTO) 0.5 (0.2-0.8); MONOCYTES % 9.7 % (4.4-11.3); NEUTROPHILS # (AUTO) 3.2 (2.1-6.9); NEUTROPHILS % 61.9 % (38.7-80.0); PLATELET COUNT 241 x10e3/uL (140-360); RED BLOOD COUNT 5.22 x10e6/uL (4.3-5.7); RED CELL DISTRIBUTION WIDTH 15.2 % (11.7-14.4)
[2019-09-04] MEDS ORDERED: DILTIAZEM HCL 5 MG/ML 5 ML VIAL IV ONE (07:30)
[2019-09-04] MEDS ORDERED: SODIUM CHLORIDE 0.9% 1000ML 1,000 ML IV ONE (07:30)
[2019-09-04 07:48] LABS: ALANINE AMINOTRANSFERASE 24 IU/L (0-55); ALBUMIN 3.7 g/dL (3.5-5.0); ALBUMIN/GLOBULIN RATIO 1.3 (0.8-2.0); ALKALINE PHOSPHATASE 72 IU/L (40-150); ANION GAP 10.4 mmol/L (8-16); BLOOD UREA NITROGEN 23 mg/dL (7-26); BUN/CREATININE RATIO 24 (6-25); CARBON DIOXIDE 27 mmol/L (22-29); CHLORIDE 104 mmol/L (98-107); CREATININE, SERUM 0.95 mg/dL (0.72-1.25); EST GLOMERULAR FILTRATION RATE > 60 ML/MIN (60-); GLUCOSE 267 mg/dL (74-118); POTASSIUM 3.4 mmol/L (3.5-5.1); SODIUM 138 mmol/L (136-145)
[2019-09-04 07:51] LABS: INR 1.03; PROTHROMBIN TIME 14.1 seconds (11.9-14.5)
[2019-09-04 07:52] LABS: PARTIAL THROMBOPLASTIN TIME 28.6 seconds (23.8-35.5)
--- NOTE | 2019-09-04 08:43 | Diagnostic Imaging Report ---
Chest, 1 view, 09/04/2019. History: Chest pain. Comparison: 07/05/2018. Findings: The cardiomediastinal silhouette and pulmonary vasculature are within normal limits for a portable exam. There is no focal consolidation or pleural effusion. There are no acute osseous or soft tissue abnormalities. Impression: No acute cardiopulmonary abnormality. Signed by: Lamine Lang on 09/04/2019 8:39 AM
[2019-09-04] MEDS ORDERED: ASPIRIN 81 MG CHEW TAB PO ONE (09:45)
[2019-09-04] MEDS ORDERED: FAMOTIDINE 20 MG TAB PO SCH (09:45)
[2019-09-04] MEDS ORDERED: NITROGLYCERIN 0.4 MG SUBL SL PRN (09:45)
[2019-09-04] MEDS ORDERED: SODIUM CHLORIDE FLUSH 10 ML SYR INJ PRN (09:45)
[2019-09-04] MEDS ORDERED: DILTIAZEM HCL ER 120 MG CAP PO SCH (11:00)
--- NOTE | 2019-09-04 11:34 | NUR ---
RECEIVED PATIENT FROM ER. PATIENT A/O X3, EVEN RESPIRATIONS ON RA. LUNG SOUNDS CLEAR. BOWEL SOUNDS PRESENT. NO CHEST PAIN AT THIS TIME. TELEMETRY #2 A FIB 97 PER STICKER OPERATOR. PATIENT AMBULATES INDEPENDENTLY. CALL LIGHT IN REACH WILL CONTINUE TO MONITOR PATIENT.
--- NOTE | 2019-09-04 11:39 | NUR ---
Chief complaint: Chest pain, palpitations. History of present illness: 69-year-old male with a past medical history of hypertension, diabetes, history of atrial fibrillation, status post cardiac abla tion, stomach ulcers, former smoker. He presented to the ER complaining of 1 day of worsening left chest pain and palpitations. He denies fever, chills nausea, vomiting, shortness of breath, diaphoresis, abdominal pain, diarrhea, dysuria, focal weakness. By the time the patient got to the ER the pain was almost gone. Initial vital signs temperature 96.7, blood pressure 128/74, pulse 131, respirations 18, pulse ox 98%. Hemoglobin 12.9, MCV 80.8, MCH 24.7, MCV HC 30.6, potassium 3.4, glucose 267, B natriuretic peptide 142.9. EKG showed no acute ischemia, rate 133, irregularly irregular narrow complex tachycardia. Atrial fibrillation. Normal ST and T waves. Chest x-ray showed the cardiomediastinal silhouette and pulmonary vasculature are within normal limits. No focal consolidation or pleural effusion. There are no acute osseous or soft tissue abnormalities. No acute cardiopulmonary abnormality. Review of systems: HEENT: No nasal congestion Cardiovascular: Reports chest pain, palpitations. Respiratory: No Cough, hemoptysis or SOB GI: Denies Nausea/V/D, hematemesis, melena : Denies Hematuria, Dysuria, Frequency Musculoskeletal: No signifcant deformity or swelling of the joints. Neuro: Denies Dizziness, Confusion, No focal weakness Psych: No anxiety or depression. Normal mood and affect Skin: No rashes, Itching, Hives Past medical history: Hypertension, diabetes, atrial fibrillation, stomach ulcers. Past surgical history: Cardiac ablation Social history: Former smoker, occasional alcohol use. No recent travel. Physical exam: Vital signs: BP 110/60, PULSE 80, RESP 16 HEENT: No gross abnormalities Neck: Supple no JVD Lungs: Clear to auscultation Heart: Tachycardia, abnormal rhythm. Irregularly irregular. Abdomen: Soft non tender, no guarding. Extremities: No edema Neurologic: Alert oriented 3, no focal weakness. Psychiatrist: Normal mood, normal judgment. Skin: No rashes Assessment: Atrial fibrillation with RVR Chest pain Diabetes Plan of care: Reconcile home medications IV fluids BP control Glycemic control Pain control DVT/GI prophylaxis Follow-up labs Cardiology consult
[2019-09-04 12:22] VITALS: BP 128/74
[2019-09-04 12:30] VITALS: BP 128/74
[2019-09-04 12:34] VITALS: BP 128/74
--- NOTE | 2019-09-04 15:49 | NUR ---
DR. GENAO ROUNDING ON PATIENT. PATIENT OK TO BE DISCHARGED FROM HIS STANDPOINT.
[2019-09-04 17:00] VITALS: BP 146/83
[2019-09-04] MEDS ORDERED: APIXABAN 5 MG TABLET PO SCH (17:00)
--- NOTE | 2019-09-04 18:51 | Consultation ---
DATE OF CONSULTATION: 09/04/2019 Cardiology Consultation REASON FOR CONSULTATION: Chest pain and atrial fibrillation. HISTORY OF PRESENT ILLNESS: This is a 69-year-old man with a history of atrial fibrillation status post direct current cardioversion and pulmonary vein isolation in the past, not on anticoagulation, only on aspirin, who presented to the emergency department with chest discomfort. He states this morning he developed sudden-onset chest pressure that progressively worsened with moderate intensity, located centrally and lower in the chest without radiation, associated with some palpitations. No shortness of breath. Upon arrival here, he was noted to be in atrial fibrillation with rapid ventricular response and after medication administration his heart rate was well controlled. He has no other current ongoing symptoms. He denies episodes of syncope. He otherwise has a history of benign prostatic hypertrophy, hypertension, and gastroesophageal reflux disease. REVIEW OF SYSTEMS: A 12-point review of system was conducted, is negative except as stated above in the HPI. PAST MEDICAL HISTORY: As stated above in the HPI. PAST SURGICAL HISTORY: Pulmonary vein isolation, transesophageal echocardiogram. PAST FAMILY HISTORY: Noncontributory to current illness. SOCIAL HISTORY: No illicit drug, alcohol, or tobacco use. ALLERGIES: NO DRUG ALLERGIES. MEDICATIONS: See medication reconciliation form. PHYSICAL EXAMINATION: VITAL SIGNS: Temperature is 98.4, heart rate is 84, respirations are 16, blood pressure is 104/75, ox saturation 98% on room air. GENERAL: Well appearing, well built, no apparent distress. Alert and orient x3. HEAD: Normocephalic and atraumatic. EYES: The extraocular muscles are intact. Conjunctivae clear. NECK: No JVD. No bruits. CARDIOVASCULAR: Irregularly irregular. Normal rate. No murmurs. LUNGS: Clear to auscultation. No wheezing. No rales. ABDOMEN: Soft, nontender, nondistended. EXTREMITIES: No clubbing, cyanosis or edema. VASCULAR: 2+ pulses. SKIN: Warm, dry, and intact. NEUROLOGIC: No focal deficits noted. Cranial nerves grossly intact. PSYCHIATRIC: Normal mood and affect. LABORATORY DATA: Reviewed. Potassium was mildly low at 3.4. Troponin is less than 0.001. A 12-lead electrocardiogram showed atrial fibrillation with right ventricular response. Echocardiogram showed preserved left ventricular systolic function. IMPRESSION: 1. Paroxysmal atrial fibrillation. 2. Hypertension. 3. Benign prostatic hypertrophy. 4. Gastroesophageal reflux disease. 5. Hypokalemia. RECOMMENDATIONS: The patient has been started on diltiazem and seems reasonable to continue this for rate control. We will start Eliquis for stroke risk reduction. His echocardiogram showed preserved left ventricular systolic function. Check a thyroid panel and magnesium. The patient may be discharged from a cardiovascular standpoint with outpatient followup. DO HUNG Zuñiga/MODL /[id number]
--- NOTE | 2019-09-04 19:14 | NUR ---
09/12/2019 Final diagnosis: Atrial fibrillation with RVR Chest pain Diabetes Hypertension Gastroesophageal reflux disease Benign prostatic hypertrophy Stomach ulcers Hypokalemia Hospital course: 69-year-old male patient admitted under my service on 09/04/2019 and discharged on 09/12/2019. The patient was treated for the above conditions. The patient was place on IV fluids, blood pressure control, glycemic control, pain control, DVT/GI prophylaxis, diltiazem. The patient was evaluated by cardiology who advised to start the patient on diltiazem for rate control, Eliquis for stroke risk reduction. Chest x-ray on 09/04/2019 No acute cardia pulmonary abnormality. The patient was discharged in a stable condition. Diet: Diabetic diet. Activities: As tolerated. Condition at the time of discharge: stable. Medications: Per reconciliation list Disposition: Follow-up with PCP Discharge note
[2019-09-04] MEDS ORDERED: CARDIZEM60 MG PO (19:17)
[2019-09-04] MEDS ORDERED: HYDROCHLOROTHIA25 MG PO (19:22)
[2019-09-04] MEDS ORDERED: ELIQUIS5 M1 PO (19:23)
--- NOTE | 2019-09-04 19:45 | NUR ---
Patient discharged and left unit via wheel chair. iv removed, pressure applied to site and no bleeding noted. patient made aware of follow up bryan. rx and activities of daily living.
[2019-09-04 20:19] VITALS: BP 133/91
[2019-09-05] MEDS ORDERED: ASPIRIN 81 MG ENTERIC COATED PO SCH (09:00)
== END 2019-09-04 20:45 | disposition home or self-care (01) ==
LOC: ER 07:00 → ERHOLD 09:37 → MED/SURG 11:36
PROVIDERS: ADMIT Internal Medicine; ATTEND Internal Medicine
DX: I48.0 Paroxysmal atrial fibrillation (principal); I10 Essential (primary) hypertension; Z79.01 Long term (current) use of anticoagulants; Z87.891 Personal history of nicotine dependence; R00.0 Tachycardia, unspecified; E11.9 Type 2 diabetes mellitus without complications; N40.0 Benign prostatic hyperplasia without lower urinary tract symptoms; K21.9 Gastro-esophageal reflux disease without esophagitis; E87.6 Hypokalemia
CPT/HCPCS: 36415; 71045; 80053; 82550; 82553; 83880; 84484; 85025; 85610; 85730; 93005; 93306; 99284; G0378; J7030

== ENCOUNTER 2020-10-03 02:18 | Inpatient (IN) | payer BC ==
[~2020-10-03] VITALS: Ht 172.7 cm; Wt 86.6 kg
[~2020-10-03 02:18] MED LIST changes: +CARDIZEM60 MG PO; +ELIQUIS5 M1 PO
[2020-10-03] MEDS ORDERED: SODIUM CHLORIDE 0.9% 1000ML 1,000 ML IV STA (02:20)
[2020-10-03] MEDS ORDERED: ASPIRIN 81 MG CHEW TAB PO ONE (02:30)
[2020-10-03] MEDS ORDERED: ADENOSINE 6 MG/2 ML VIAL IV ONE ×4 (02:30→03:15)
[2020-10-03] MEDS ORDERED: ADENOSINE 6MG/2ML 3 ML ONE (02:37)
[2020-10-03] MEDS ORDERED: DILTIAZEM HCL VIAL 5 ML ONE (02:47)
[2020-10-03] MEDS ORDERED: METOPROLOL TARTRATE INJ 1 MG/ML VIAL ONE (02:52)
[2020-10-03] MEDS ORDERED: LORAZEPAM INJ 2 MG/ML VIAL ONE (02:52)
[2020-10-03] MEDS ORDERED: DIGOXIN INJ 0.25 MG/ML 2 ML AMP ONE (02:52)
[2020-10-03] MEDS ORDERED: ONDANSETRON HCL INJ 2MG/ML 2ML 2 MG/ML VIAL ONE (02:52)
[2020-10-03] MEDS ORDERED: MORPHINE SULFATE INJ 4 MG/ML INJ 1ML ONE (02:53)
[2020-10-03] MEDS ORDERED: AMIODARONE HCL 150MG 100 ML ONE ×2 (02:59→03:17)
[2020-10-03] MEDS ORDERED: FENTANYL CITRATE/PF 100MCG/2 ML INJ ONE (03:00)
[2020-10-03 03:11] LABS: BASOPHILS % 0.4 % (0.0-1.0); EOSINOPHILS # (AUTO) 0.2 (0.0-0.4); EOSINOPHILS % 2.5 % (0.0-6.0); HEMATOCRIT 41.1 % (38.2-49.6); HEMOGLOBIN 12.8 g/dL (14.0-18.0); LYMPHOCYTES # (AUTO) 1.4 (1.0-3.2); LYMPHOCYTES % 17.7 % (18.0-39.1); MEAN CORPUSCULAR HEMOGLOBIN 25.7 pg (28-32); MEAN CORPUSCULAR HGB CONC 31.1 g/dL (31-35); MEAN CORPUSCULAR VOLUME 82.5 fL (81-99); NEUTROPHILS # (AUTO) 5.3 (2.1-6.9); NEUTROPHILS % 67.1 % (38.7-80.0); PLATELET COUNT 243 x10e3/uL (140-360); RED BLOOD COUNT 4.98 x10e6/uL (4.3-5.7); RED CELL DISTRIBUTION WIDTH 15.1 % (11.7-14.4)
[2020-10-03] MEDS ORDERED: DILTIAZEM HCL 5 MG/ML 5 ML VIAL IV STA (03:11)
[2020-10-03] MEDS ORDERED: METOPROLOL TARTRATE INJ 1 MG/ML VIAL IV ONE (03:15)
[2020-10-03] MEDS ORDERED: AMIODARONE HCL 150 MG/100 ML BAG IV ONE ×2 (03:15→03:30)
[2020-10-03] MEDS ORDERED: DIGOXIN INJ 0.25 MG/ML 2 ML AMP IV ONE (03:15)
[2020-10-03] MEDS ORDERED: AMIODARONE 900MG 500 ML IV ONE (03:17)
[2020-10-03 03:25] LABS: ALANINE AMINOTRANSFERASE 32 IU/L (0-55); ALBUMIN 3.9 g/dL (3.5-5.0); ALBUMIN/GLOBULIN RATIO 1.3 (0.8-2.0); ALKALINE PHOSPHATASE 92 IU/L (40-150); ANION GAP 14.9 mmol/L (8-16); BLOOD UREA NITROGEN 27 mg/dL (7-26); BUN/CREATININE RATIO 34 (6-25); CALCIUM 8.4 mg/dL (8.4-10.2); CARBON DIOXIDE 23 mmol/L (22-29); CHLORIDE 107 mmol/L (98-107); CREATINE KINASE 168 IU/L (30-200); CREATININE, SERUM 0.79 mg/dL (0.72-1.25); EST GLOMERULAR FILTRATION RATE > 60 ML/MIN (60-); GLUCOSE 95 mg/dL (74-118); POTASSIUM 3.9 mmol/L (3.5-5.1); SODIUM 141 mmol/L (136-145)
[2020-10-03] MEDS ORDERED: ONDANSETRON HCL INJ 2MG/ML 2ML 2 MG/ML VIAL IV PRN ×3 (03:45→12:15)
[2020-10-03] MEDS ORDERED: MORPHINE SULFATE INJ 4 MG/ML INJ 1ML IV PRN (03:45)
[2020-10-03] MEDS ORDERED: ASPIRIN 325 MG TAB PO STA (03:57)
[2020-10-03] MEDS ORDERED: LORAZEPAM INJ 2 MG/ML VIAL IV ONE (04:15)
[2020-10-03] MEDS: SODIUM CHLORIDE 0.9% 1000ML 1,000 ML IV SCH ×2 (04:40→11:11)
[2020-10-03] MEDS: METOPROLOL TARTRATE 25 MG TAB PO SCH ×3 (05:42→17:07)
[2020-10-03 06:58] LABS: MAGNESIUM 2.2 MG/DL (1.3-2.1)
[2020-10-03 07:21] LABS: THYROID STIMULATING HORMONE 2.452 uIU/mL (0.350-4.940)
[2020-10-03] MEDS ORDERED: FLUOXETINE HCL20 MG PO (07:23)
[2020-10-03] MEDS ORDERED: GUAIFENESIN 200 MG/10 ML UDC PO PRN (08:15)
[2020-10-03] MEDS ORDERED: MAGNESIUM/ALUMINUM/SIMETHICONE 30 ML UDC PO PRN (08:15)
[2020-10-03] MEDS ORDERED: HYDRALAZINE HCL 20 MG/ML VIAL IV PRN ×2 (08:15→12:15)
[2020-10-03] MEDS ORDERED: ACETAMINOPHEN 325 MG TAB PO PRN ×2 (08:15→12:15)
[2020-10-03] MEDS ORDERED: PANTOPRAZOLE SOD 40 MG TABEC PO SCH (09:00)
[2020-10-03 09:36] LABS: CREATINE KINASE MB 5.2 ng/mL (0-5.0)
[2020-10-03] MEDS: LISINOPRIL 10 MG TAB PO SCH (09:59)
[2020-10-03] MEDS: TAMSULOSIN HCL 0.4 MG CAP PO SCH (10:00)
[2020-10-03] MEDS: APIXABAN 5 MG TABLET PO SCH ×2 (10:00→17:07)
[2020-10-03 10:14] VITALS: BP 125/73
[2020-10-03 10:21] VITALS: BP 125/73
[2020-10-03 10:56] VITALS: BP 125/75
[2020-10-03] MEDS: DILTIAZEM HCL CR 120MG TAB PO SCH (11:11)
[2020-10-03] MEDS ORDERED: TRAMADOL HCL 50 MG TAB PO PRN (12:15)
[2020-10-03] MEDS ORDERED: DIPHENHYDRAMINE HCL 25 MG CAP PO PRN (12:15)
[2020-10-03] MEDS ORDERED: DOCUSATE SODIUM 100 MG CAP PO PRN (12:15)
[2020-10-03] MEDS ORDERED: BENZONATATE 100 MG CAP PO PRN (12:15)
[2020-10-03] MEDS ORDERED: ALBUTEROL/IPRATROPIUM 3 ML NEB NEB PRN (12:15)
[2020-10-03] MEDS ORDERED: POTASSIUM CHLORIDE 20 MEQ TAB CR PO PRN (12:15)
[2020-10-03] MEDS ORDERED: MELATONIN 5 MG TABLET PO PRN (12:15)
[2020-10-03] MEDS ORDERED: DEXTROSE 50% SYRINGE 50 ML IV PRN (12:15)
[2020-10-03] MEDS ORDERED: POLYETHYLENE GLYCOL 3350 17 GM PACK PO PRN (12:15)
[2020-10-03 15:27] LABS: CREATINE KINASE MB 6.4 ng/mL (0-5.0)
[2020-10-03 16:06] VITALS: BP 117/83
[2020-10-03] MEDS ORDERED: FUROSEMIDE INJ 10 MG/ML 4 ML VIAL IV ONE (17:45)
[2020-10-03 20:31] VITALS: BP 103/78
[2020-10-03] MEDS: FLUOXETINE HCL 20 MG CAP PO SCH (20:49)
[2020-10-03 22:22] VITALS: BP 103/78
[2020-10-04] VITALS (8 sets, daily range): BP systolic 100–131; BP diastolic 71–93
[2020-10-04 00:01] LABS: CREATINE KINASE MB 5.5 ng/mL (0-5.0)
[2020-10-04] MEDS: METOPROLOL TARTRATE 25 MG TAB PO SCH ×5 (00:43→23:47)
[2020-10-04 06:16] LABS: BASOPHILS % 0.2 % (0.0-1.0); EOSINOPHILS # (AUTO) 0.2 (0.0-0.4); EOSINOPHILS % 3.9 % (0.0-6.0); HEMATOCRIT 37.4 % (38.2-49.6); HEMOGLOBIN 11.8 g/dL (14.0-18.0); LYMPHOCYTES # (AUTO) 1.2 (1.0-3.2); LYMPHOCYTES % 21.7 % (18.0-39.1); MEAN CORPUSCULAR HEMOGLOBIN 25.7 pg (28-32); MEAN CORPUSCULAR HGB CONC 31.6 g/dL (31-35); MEAN CORPUSCULAR VOLUME 81.3 fL (81-99); MONOCYTES # (AUTO) 0.6 (0.2-0.8); MONOCYTES % 10.5 % (4.4-11.3); NEUTROPHILS # (AUTO) 3.6 (2.1-6.9); NEUTROPHILS % 63.5 % (38.7-80.0); PLATELET COUNT 226 x10e3/uL (140-360); RED CELL DISTRIBUTION WIDTH 14.8 % (11.7-14.4)
[2020-10-04 06:39] LABS: ALANINE AMINOTRANSFERASE 24 IU/L (0-55); ALBUMIN 3.3 g/dL (3.5-5.0); ALBUMIN/GLOBULIN RATIO 1.3 (0.8-2.0); ALKALINE PHOSPHATASE 73 IU/L (40-150); BLOOD UREA NITROGEN 16 mg/dL (7-26); BUN/CREATININE RATIO 22 (6-25); CALCIUM 7.9 mg/dL (8.4-10.2); CARBON DIOXIDE 23 mmol/L (22-29); CHLORIDE 108 mmol/L (98-107); CREATININE, SERUM 0.73 mg/dL (0.72-1.25); EST GLOMERULAR FILTRATION RATE > 60 ML/MIN (60-); GLUCOSE 119 mg/dL (74-118); SODIUM 140 mmol/L (136-145)
[2020-10-04 06:54] LABS: CHOL/HDL RATIO 4.1 (3.9-4.7); MAGNESIUM 1.9 MG/DL (1.3-2.1); PHOSPHORUS 3.2 MG/DL (2.3-4.7)
[2020-10-04 07:13] LABS: THYROID STIMULATING HORMONE 2.213 uIU/mL (0.350-4.940)
[2020-10-04] MEDS: PANTOPRAZOLE SOD 40 MG TABEC PO SCH (08:39)
[2020-10-04] MEDS: TAMSULOSIN HCL 0.4 MG CAP PO SCH (08:39)
[2020-10-04] MEDS: LISINOPRIL 10 MG TAB PO SCH (08:39)
[2020-10-04] MEDS: DILTIAZEM HCL CR 120MG TAB PO SCH (08:39)
[2020-10-04] MEDS: METOPROLOL TARTRATE INJ 1 MG/ML VIAL IV PRN (11:18)
[2020-10-04] MEDS: AMIODARONE HCL 200 MG TAB PO SCH (18:34)
[2020-10-04] MEDS: FLUOXETINE HCL 20 MG CAP PO SCH (20:04)
[2020-10-05] VITALS (13 sets, daily range): BP systolic 115–139; BP diastolic 48–95
[2020-10-05] MEDS: METOPROLOL TARTRATE 25 MG TAB PO SCH ×3 (05:25→18:26)
[2020-10-05 06:19] LABS: BASOPHILS % 0.3 % (0.0-1.0); EOSINOPHILS # (AUTO) 0.2 (0.0-0.4); EOSINOPHILS % 3.9 % (0.0-6.0); HEMATOCRIT 38.9 % (38.2-49.6); HEMOGLOBIN 12.3 g/dL (14.0-18.0); LYMPHOCYTES # (AUTO) 1.3 (1.0-3.2); LYMPHOCYTES % 20.2 % (18.0-39.1); MEAN CORPUSCULAR HEMOGLOBIN 25.7 pg (28-32); MEAN CORPUSCULAR HGB CONC 31.6 g/dL (31-35); MEAN CORPUSCULAR VOLUME 81.4 fL (81-99); MONOCYTES # (AUTO) 0.7 (0.2-0.8); NEUTROPHILS % 64.4 % (38.7-80.0); PLATELET COUNT 251 x10e3/uL (140-360); RED BLOOD COUNT 4.78 x10e6/uL (4.3-5.7); RED CELL DISTRIBUTION WIDTH 14.7 % (11.7-14.4)
[2020-10-05 06:46] LABS: ANION GAP 14.2 mmol/L (8-16); BLOOD UREA NITROGEN 22 mg/dL (7-26); BUN/CREATININE RATIO 30 (6-25); CALCIUM 8.2 mg/dL (8.4-10.2); CARBON DIOXIDE 25 mmol/L (22-29); CHLORIDE 107 mmol/L (98-107); CREATININE, SERUM 0.74 mg/dL (0.72-1.25); EST GLOMERULAR FILTRATION RATE > 60 ML/MIN (60-); GLUCOSE 126 mg/dL (74-118); POTASSIUM 4.2 mmol/L (3.5-5.1); SODIUM 142 mmol/L (136-145)
[2020-10-05] MEDS: TAMSULOSIN HCL 0.4 MG CAP PO SCH (08:26)
[2020-10-05] MEDS: APIXABAN 5 MG TABLET PO SCH ×2 (08:26→16:21)
[2020-10-05] MEDS: PANTOPRAZOLE SOD 40 MG TABEC PO SCH (08:26)
[2020-10-05] MEDS: AMIODARONE HCL 200 MG TAB PO SCH (08:26)
[2020-10-05] MEDS: LISINOPRIL 10 MG TAB PO SCH (08:27)
[2020-10-05] MEDS ORDERED: REGADENOSON 0.4 MG/5 ML SYR IV ONE (10:48)
[2020-10-05] MEDS: METOPROLOL TARTRATE INJ 1 MG/ML VIAL IV PRN (11:55)
[2020-10-05] MEDS ORDERED: AMIODARONE HCL 900 MG in DEXTROSE 5% 500ML 500 ML IV SCH (12:45)
[2020-10-05] MEDS ORDERED: AMIODARONE HCL 150 MG/100 ML BAG IV ONE (12:45)
[2020-10-05] MEDS ORDERED: AMIODARONE HCL 150 MG in DEXTROSE 5% 100ML 100 ML IV ONE (13:00)
[2020-10-05] MEDS: AMIODARONE HCL 900 MG in DEXTROSE 5 % 500ML BOTTLE 500 ML IV SCH (15:50)
[2020-10-05] MEDS: FLUOXETINE HCL 20 MG CAP PO SCH (21:00)
[2020-10-06] VITALS (17 sets, daily range): BP systolic 90–136; BP diastolic 63–92
[2020-10-06] MEDS: METOPROLOL TARTRATE 25 MG TAB PO SCH ×4 (00:12→18:15)
[2020-10-06] MEDS: AMIODARONE HCL 900 MG in DEXTROSE 5 % 500ML BOTTLE 500 ML IV SCH (04:42)
[2020-10-06] MEDS: TAMSULOSIN HCL 0.4 MG CAP PO SCH (08:31)
[2020-10-06] MEDS: PANTOPRAZOLE SOD 40 MG TABEC PO SCH (08:31)
[2020-10-06] MEDS: LISINOPRIL 10 MG TAB PO SCH (08:38)
[2020-10-06] MEDS ORDERED: VERAPAMIL HCL 2.5 MG/ML 2 ML VIAL ONE (12:55)
[2020-10-06] MEDS ORDERED: MIDAZOLAM HCL 2 MG/2 ML VIAL ONE ×2 (12:56→13:13)
[2020-10-06] MEDS ORDERED: LIDOCAINE HCL 2% LOCAL 20 ML VIAL ONE (12:56)
[2020-10-06] MEDS ORDERED: HEPARIN SOD/SOD CHLORIDE 2,000 ML ONE (12:56)
[2020-10-06] MEDS ORDERED: FENTANYL CITRATE/PF 100MCG/2 ML INJ ONE (12:56)
[2020-10-06] MEDS ORDERED: SODIUM CHLORIDE 0.9% 1000ML 1,000 ML ONE (12:57)
[2020-10-06] MEDS ORDERED: IOPAMIDOL 370 MG/ML 200 ML INFUS..BTL INJ ONE (12:57)
[2020-10-06] MEDS ORDERED: SODIUM CHLORIDE 0.9% 50ML 50 ML ONE (13:20)
[2020-10-06] MEDS ORDERED: BIVALRIUDIN 250 MG/VIAL VIAL IV ONE (13:20)
[2020-10-06] MEDS ORDERED: ASPIRIN 325 MG TAB ONE (13:55)
[2020-10-06] MEDS ORDERED: PRASUGREL 10 MG TAB ONE (13:55)
[2020-10-06] MEDS: FLUOXETINE HCL 20 MG CAP PO SCH (21:11)
[2020-10-07] VITALS: BP 124/75
[2020-10-07] MEDS: METOPROLOL TARTRATE 25 MG TAB PO SCH ×3 (00:15→12:21)
[2020-10-07 02:00] VITALS: BP 118/75
[2020-10-07 04:00] VITALS: BP 132/88
[2020-10-07 07:00] VITALS: BP 135/79
[2020-10-07] MEDS: PANTOPRAZOLE SOD 40 MG TABEC PO SCH (07:39)
[2020-10-07 09:00] VITALS: BP 133/83
[2020-10-07] MEDS ORDERED: CLOPIDOGREL BISULFATE 75 MG TAB PO SCH (09:00)
[2020-10-07] MEDS: TAMSULOSIN HCL 0.4 MG CAP PO SCH (09:21)
[2020-10-07] MEDS: LISINOPRIL 10 MG TAB PO SCH (09:21)
[2020-10-07 11:00] VITALS: BP 148/88
== END 2020-10-07 13:45 | disposition home or self-care (01) | DRG 246 ==
LOC: ER 02:22 → ERHOLD 04:01 → MED/SURG3 11:28 → ICU 10-05 14:49 → IMCU 10-05 20:19
PROVIDERS: ADMIT Internal Medicine; ATTEND Internal Medicine
PROC: 4A023N7 Measurement of Cardiac Sampling and Pressure, Left Heart, Percutaneous Approach (ICD-10-PCS; principal; 2020-10-06)
PROC: 027034Z Dilation of Coronary Artery, One Artery with Drug-eluting Intraluminal Device, Percutaneous Approach (ICD-10-PCS; 2020-10-06)
PROC: B2111ZZ Fluoroscopy of Multiple Coronary Arteries using Low Osmolar Contrast (ICD-10-PCS; 2020-10-06)
PROC: B2151ZZ Fluoroscopy of Left Heart using Low Osmolar Contrast (ICD-10-PCS; 2020-10-06)
DX: I48.91 Unspecified atrial fibrillation (principal); I50.43 Acute on chronic combined systolic (congestive) and diastolic (congestive) heart failure; I21.A1 Myocardial infarction type 2; I47.1 Supraventricular tachycardia; I11.0 Hypertensive heart disease with heart failure; Z87.891 Personal history of nicotine dependence; Z83.3 Family history of diabetes mellitus; Z82.49 Family history of ischemic heart disease and other diseases of the circulatory system; E11.9 Type 2 diabetes mellitus without complications; N40.0 Benign prostatic hyperplasia without lower urinary tract symptoms; K21.9 Gastro-esophageal reflux disease without esophagitis; F10.21 Alcohol dependence, in remission; I48.92 Unspecified atrial flutter; E78.5 Hyperlipidemia, unspecified; I25.10 Atherosclerotic heart disease of native coronary artery without angina pectoris; E66.01 Morbid (severe) obesity due to excess calories; Z68.29 Body mass index [BMI] 29.0-29.9, adult
CPT/HCPCS: 36415; 71045; 78452; 80048; 80053; 80061; 82550; 82553; 83036; 83735; 83880; 84100; 84443; 84484; 85025; 92928; 93005; 93017; 93306; 93454; 99152; 99153; 99285; A9502; C1769; C1874; C1887; J0153; J0583; J1160; J1940; J2001; J2060; J2250; J2270; J2405; J3010; J7030; Q9967; U0002

== ENCOUNTER → 2021-01-31 | Day surgery (SDC) | payer BC ==
[2021-01-26 15:14] LABS: BASOPHILS % 0.8 % (0.0-1.0); EOSINOPHILS # (AUTO) 0.2 (0.0-0.4); EOSINOPHILS % 3.3 % (0.0-6.0); HEMATOCRIT 33.9 % (38.2-49.6); HEMOGLOBIN 9.9 g/dL (14.0-18.0); LYMPHOCYTES % 18.8 % (18.0-39.1); MEAN CORPUSCULAR HEMOGLOBIN 22.7 pg (28-32); MEAN CORPUSCULAR HGB CONC 29.2 g/dL (31-35); MEAN CORPUSCULAR VOLUME 77.6 fL (81-99); MONOCYTES # (AUTO) 0.6 (0.2-0.8); MONOCYTES % 11.5 % (4.4-11.3); NEUTROPHILS # (AUTO) 3.3 (2.1-6.9); NEUTROPHILS % 65.2 % (38.7-80.0); PLATELET COUNT 266 x10e3/uL (140-360); RED BLOOD COUNT 4.37 x10e6/uL (4.3-5.7); RED CELL DISTRIBUTION WIDTH 14.9 % (11.7-14.4)
[2021-01-26 15:33] LABS: ALBUMIN/GLOBULIN RATIO 1.3 (0.8-2.0); ANION GAP 12.8 mmol/L (8-16); CALCIUM 8.7 mg/dL (8.4-10.2); CREATININE, SERUM 1.35 mg/dL (0.72-1.25); POTASSIUM 4.8 mmol/L (3.5-5.1)
[2021-01-31] VITALS (11 sets, daily range): BP systolic 144–177; BP diastolic 75–88
[~2021-01-31] VITALS: Ht 172.7 cm; Wt 86.6 kg
[~2021-01-31] MED LIST changes: +ALPRAZOLAM 0.5 MG TAB ONE; +ASPIRIN 325 MG TAB ONE; +ASPIRIN81 MG PO; +BIVALRIUDIN 250 MG/VIAL VIAL IV ONE; +DIPHENHYDRAMINE HCL 25 MG CAP ONE; +FENTANYL CITRATE/PF 100MCG/2 ML INJ ONE; +FLUOXETINE HCL20 MG PO; +HEPARIN SOD/SOD CHLORIDE 2,000 ML ONE; +IOPAMIDOL 370 MG/ML 200 ML INFUS..BTL INJ ONE; +LIDOCAINE HCL 2% LOCAL 20 ML VIAL ONE; +MIDAZOLAM HCL 2 MG/2 ML VIAL ONE; +PRASUGREL 10 MG TAB ONE; +SODIUM CHLORIDE 0.9% 1000ML 1,000 ML ONE; +SODIUM CHLORIDE 0.9% 50ML 50 ML ONE
== END | disposition home or self-care (01) ==
LOC: CATH LAB 10:37
PROVIDERS: ATTEND Internal Medicine Interventional Cardiology
DX: I25.110 Atherosclerotic heart disease of native coronary artery with unstable angina pectoris (principal); R94.39 Abnormal result of other cardiovascular function study; I11.0 Hypertensive heart disease with heart failure; I50.22 Chronic systolic (congestive) heart failure; Z01.812 Encounter for preprocedural laboratory examination; Z20.822 Contact with and (suspected) exposure to COVID-19; Z79.02 Long term (current) use of antithrombotics/antiplatelets; Z79.82 Long term (current) use of aspirin; Z82.49 Family history of ischemic heart disease and other diseases of the circulatory system
CPT/HCPCS: 36415; 76937; 80053; 83880; 85025; 92928; C1725 ×2; C1769; C1874; J0583; J2001; J2250; J3010; J7030; Q9967; U0002

== ENCOUNTER 2021-12-27 17:16 | Inpatient (IN) | payer BC, MEDICARE ==
[~2021-12-27] VITALS: Ht 175.3 cm; Wt 82.3 kg
[~2021-12-27 17:16] MED LIST changes: -ALPRAZOLAM 0.5 MG TAB ONE; -ASPIRIN 325 MG TAB ONE; -BIVALRIUDIN 250 MG/VIAL VIAL IV ONE; -DIPHENHYDRAMINE HCL 25 MG CAP ONE; -FENTANYL CITRATE/PF 100MCG/2 ML INJ ONE; -HEPARIN SOD/SOD CHLORIDE 2,000 ML ONE; -IOPAMIDOL 370 MG/ML 200 ML INFUS..BTL INJ ONE; -LIDOCAINE HCL 2% LOCAL 20 ML VIAL ONE; -MIDAZOLAM HCL 2 MG/2 ML VIAL ONE; -PRASUGREL 10 MG TAB ONE; -SODIUM CHLORIDE 0.9% 1000ML 1,000 ML ONE; -SODIUM CHLORIDE 0.9% 50ML 50 ML ONE
[2021-12-27] MEDS ORDERED: ACETAMINOPHEN 325 MG TAB PO ONE (18:15)
[2021-12-27 18:42] LABS: BASOPHILS % 0.2 % (0.0-1.0); EOSINOPHILS # (AUTO) 0.1 (0.0-0.4); EOSINOPHILS % 0.4 % (0.0-6.0); HEMATOCRIT 33.3 % (38.2-49.6); HEMOGLOBIN 9.3 g/dL (14.0-18.0); LYMPHOCYTES % 8.2 % (18.0-39.1); MEAN CORPUSCULAR HEMOGLOBIN 19.1 pg (28-32); MEAN CORPUSCULAR HGB CONC 27.9 g/dL (31-35); MEAN CORPUSCULAR VOLUME 68.2 fL (81-99); MONOCYTES # (AUTO) 1.1 (0.2-0.8); MONOCYTES % 8.9 % (4.4-11.3); NEUTROPHILS # (AUTO) 9.9 (2.1-6.9); NEUTROPHILS % 81.7 % (38.7-80.0); PLATELET COUNT 318 x10e3/uL (140-360); RED BLOOD COUNT 4.88 x10e6/uL (4.3-5.7); RED CELL DISTRIBUTION WIDTH 22.5 % (11.7-14.4)
[2021-12-27 18:47] LABS: ALBUMIN 3.6 g/dL (3.5-5.0); ALBUMIN/GLOBULIN RATIO 0.9 (0.8-2.0); ANION GAP 15.1 mmol/L (8-16); CALCIUM 8.3 mg/dL (8.4-10.2); CREATININE, SERUM 0.82 mg/dL (0.72-1.25); POTASSIUM 4.1 mmol/L (3.5-5.1)
[2021-12-27 18:56] LABS: CREATINE KINASE MB 1.4 ng/mL (0-5.0)
[2021-12-27] MEDS ORDERED: ONDANSETRON HCL INJ 2MG/ML 2ML 2 MG/ML VIAL IV STA (20:57)
[2021-12-27] MEDS ORDERED: Morphine 4mg INJECTION 4 MG/ML INJ IV ONE (21:00)
[2021-12-27] MEDS ORDERED: ONDANSETRON HCL INJ 2MG/ML 2ML 2 MG/ML VIAL ONE (21:13)
[2021-12-27] MEDS ORDERED: Morphine 4mg INJECTION 4 MG/ML INJ ONE (21:13)
[2021-12-27 23:01] LABS: CLARITY,URINE CLEAR (CLEAR); COLOR,URINE YELLOW (YELLOW); KETONES,URINE TRACE (NEGATIVE); LEUKOCYTE ESTERASE ,URINE NEGATIVE (NEGATIVE); NITRITE,URINE NEGATIVE (NEGATIVE); PROTEIN,URINE DIPSTICK TRACE (NEGATIVE); URINE UROBILINOGEN 1 mg/dL (0.2 - 1)
[2021-12-27 23:11] LABS: BACTERIA,URINE FEW /HPF; EPITHELIAL CELLS,URINE RARE /LPF; RBC,URINE 0-5 /HPF (0-5); WBC,URINE (MAN) 0-5 /HPF (0-5)
[2021-12-27 23:13] LABS: MUCUS,URINE MANY (RARE)
[2021-12-27] MEDS: ONDANSETRON HCL INJ 2MG/ML 2ML 2 MG/ML VIAL IV PRN (23:30)
[2021-12-27] MEDS: Morphine 4mg INJECTION 4 MG/ML INJ IV PRN (23:32)
[2021-12-28] VITALS (8 sets, daily range): BP systolic 151–181; BP diastolic 74–90
[2021-12-28] MEDS: SODIUM CHLORIDE 0.9% 1000ML 1,000 ML IV SCH ×3 (01:50→15:30)
[2021-12-28] MEDS ORDERED: CLOPIDOGREL75 MG PO (01:58)
[2021-12-28] MEDS ORDERED: CELEBREX200 MG PO (01:58)
[2021-12-28] MEDS ORDERED: METOPROLOL TART25 MG PO (01:58)
[2021-12-28] MEDS ORDERED: ENTRESTO 24 MG1 EACH PO (01:58)
[2021-12-28] MEDS ORDERED: TYLENOL325 MG PO (01:58)
[2021-12-28] MEDS ORDERED: ZETIA10 MG PO (01:58)
[2021-12-28] MEDS ORDERED: ATORVASTATIN CA40 MG PO (01:58)
[2021-12-28] MEDS: ONDANSETRON HCL INJ 2MG/ML 2ML 2 MG/ML VIAL IV PRN ×2 (03:40→23:17)
[2021-12-28] MEDS: Morphine 4mg INJECTION 4 MG/ML INJ IV PRN (03:40)
[2021-12-28 04:36] LABS: CREATINE KINASE MB 0.9 ng/mL (0-5.0)
[2021-12-28] MEDS ORDERED: KETOROLAC TROMETHAMINE 30 MG/ML VIAL IM ONE (06:45)
[2021-12-28 07:36] LABS: BASOPHILS % 0.1 % (0.0-1.0); EOSINOPHILS % 0.1 % (0.0-6.0); HEMATOCRIT 31.5 % (38.2-49.6); HEMOGLOBIN 8.9 g/dL (14.0-18.0); LYMPHOCYTES # (AUTO) 0.5 (1.0-3.2); MEAN CORPUSCULAR HEMOGLOBIN 19.1 pg (28-32); MEAN CORPUSCULAR HGB CONC 28.3 g/dL (31-35); MEAN CORPUSCULAR VOLUME 67.6 fL (81-99); MONOCYTES # (AUTO) 1.1 (0.2-0.8); MONOCYTES % 8.3 % (4.4-11.3); NEUTROPHILS # (AUTO) 11.8 (2.1-6.9); NEUTROPHILS % 86.8 % (38.7-80.0); PLATELET COUNT 283 x10e3/uL (140-360); RED BLOOD COUNT 4.66 x10e6/uL (4.3-5.7); RED CELL DISTRIBUTION WIDTH 22.1 % (11.7-14.4)
[2021-12-28 08:03] LABS: ALBUMIN 3.4 g/dL (3.5-5.0); ALBUMIN/GLOBULIN RATIO 1.2 (0.8-2.0); ANION GAP 12.9 mmol/L (8-16); CALCIUM 8.1 mg/dL (8.4-10.2); CREATININE, SERUM 0.71 mg/dL (0.72-1.25); POTASSIUM 3.9 mmol/L (3.5-5.1)
[2021-12-28 10:08] LABS: ANISOCYTOSIS MODERATE; HYPOCHROMASIA MODERATE; MICROCYTOSIS MODERATE; PLATELET ESTIMATE ADEQUATE; PLATELET MORPHOLOGY COMMENT NORMAL; RBC MORPHOLOGY COMMENT ABNORMAL
[2021-12-28] MEDS ORDERED: KETOROLAC TROMETHAMINE 30 MG/ML VIAL IV ONE (13:30)
[2021-12-28] MEDS: ACETAMINOPHEN 325 MG TAB PO PRN (14:25)
[2021-12-28 17:05] LABS: CREATINE KINASE MB 0.9 ng/mL (0-5.0)
[2021-12-28 17:17] LABS: AMYLASE 38 U/L (25-125); LIPASE 6 U/L (8-78)
[2021-12-28] MEDS ORDERED: TIZANIDINE HCL4 MG PO (18:36)
[2021-12-28] MEDS ORDERED: METOPROLOL SUCC25 MG PO (18:36)
[2021-12-28] MEDS: ATORVASTATIN 40 MG TAB PO SCH (21:08)
[2021-12-28] MEDS: HYDROMORPHONE 1MG/1ML INJ IV PRN (23:17)
[2021-12-29] VITALS (8 sets, daily range): BP systolic 151–168; BP diastolic 69–82
[2021-12-29 00:14] LABS: % IRON SATURATION 3 % (15-50); IRON 14 ug/dL (65-175); TOTAL IRON BINDING CAPACITY 442 ug/dL (261-478); TRANSFERRIN 316 mg/dL (174-364)
[2021-12-29] MEDS: ACETAMINOPHEN 325 MG TAB PO PRN ×3 (00:30→21:35)
[2021-12-29] MEDS: SODIUM CHLORIDE 0.9% 1000ML 1,000 ML IV SCH (03:53)
[2021-12-29] MEDS: ONDANSETRON HCL INJ 2MG/ML 2ML 2 MG/ML VIAL IV PRN ×2 (06:36→20:33)
[2021-12-29] MEDS: HYDROMORPHONE 1MG/1ML INJ IV PRN ×4 (06:36→20:33)
[2021-12-29 06:45] LABS: BASOPHILS % 0.2 % (0.0-1.0); EOSINOPHILS # (AUTO) 0.1 (0.0-0.4); EOSINOPHILS % 0.9 % (0.0-6.0); HEMATOCRIT 30.8 % (38.2-49.6); HEMOGLOBIN 8.5 g/dL (14.0-18.0); LYMPHOCYTES # (AUTO) 0.9 (1.0-3.2); LYMPHOCYTES % 7.2 % (18.0-39.1); MEAN CORPUSCULAR HGB CONC 27.6 g/dL (31-35); MEAN CORPUSCULAR VOLUME 68.9 fL (81-99); MONOCYTES # (AUTO) 1.1 (0.2-0.8); MONOCYTES % 8.7 % (4.4-11.3); NEUTROPHILS # (AUTO) 10.4 (2.1-6.9); NEUTROPHILS % 82.2 % (38.7-80.0); PLATELET COUNT 283 x10e3/uL (140-360); RED BLOOD COUNT 4.47 x10e6/uL (4.3-5.7); RED CELL DISTRIBUTION WIDTH 22.1 % (11.7-14.4)
[2021-12-29 06:54] LABS: INR 1.18
[2021-12-29 06:55] LABS: PARTIAL THROMBOPLASTIN TIME 33.6 seconds (23.8-35.5)
[2021-12-29 07:17] LABS: ANION GAP 11.8 mmol/L (8-16); CREATININE, SERUM 0.7 mg/dL (0.72-1.25); POTASSIUM 3.8 mmol/L (3.5-5.1)
[2021-12-29] MEDS: METOPROLOL SUCCINATE 25 MG TAB XL PO SCH (08:07)
[2021-12-29] MEDS: CLOPIDOGREL BISULFATE 75 MG TAB PO SCH (08:07)
[2021-12-29] MEDS ORDERED: EZETIMIBE 10 MG TAB PO SCH (09:00)
[2021-12-29] MEDS: IRON SUCROSE 100 MG in SODIUM CHLORIDE 0.9% 100 ML IV SCH (09:33)
[2021-12-29 09:37] LABS: EOSINOPHILS % (MANUAL) 2 % (0-7); MONOCYTES % (MANUAL) 4 % (3.4-9.0); NEUTROPHILS % (MANUAL) 94 % (40-74)
[2021-12-29 09:38] LABS: ANISOCYTOSIS MODERATE; PLATELET ESTIMATE ADEQUATE; PLATELET MORPHOLOGY COMMENT NORMAL; POIKILOCYTOSIS SLIGHT; RBC MORPHOLOGY COMMENT ABNORMAL
[2021-12-29 09:39] LABS: ELLIPTOCYTE, RBC SLIGHT; HYPOCHROMASIA SLIGHT; OVALOCYTES FEW
[2021-12-29] MEDS: VALSARTAN/SACUBITRIL 24MG/26MG 1 EA TAB PO SCH ×2 (16:04→16:05)
[2021-12-29] MEDS: MEROPENEM 1 GM in SODIUM CHLORIDE 0.9% 100 ML IV SCH (20:33)
[2021-12-29] MEDS: ATORVASTATIN 40 MG TAB PO SCH (20:33)
[2021-12-30] VITALS (7 sets, daily range): BP systolic 140–179; BP diastolic 76–93
[2021-12-30] MEDS: ONDANSETRON HCL INJ 2MG/ML 2ML 2 MG/ML VIAL IV PRN ×3 (01:20→23:26)
[2021-12-30] MEDS: HYDROMORPHONE 1MG/1ML INJ IV PRN ×5 (01:20→23:26)
[2021-12-30 06:11] LABS: BASOPHILS % 0.4 % (0.0-1.0); EOSINOPHILS # (AUTO) 0.1 (0.0-0.4); EOSINOPHILS % 1.3 % (0.0-6.0); HEMATOCRIT 30.4 % (38.2-49.6); HEMOGLOBIN 8.3 g/dL (14.0-18.0); LYMPHOCYTES # (AUTO) 0.7 (1.0-3.2); LYMPHOCYTES % 7.3 % (18.0-39.1); MEAN CORPUSCULAR HEMOGLOBIN 18.8 pg (28-32); MEAN CORPUSCULAR HGB CONC 27.3 g/dL (31-35); MEAN CORPUSCULAR VOLUME 68.8 fL (81-99); MONOCYTES # (AUTO) 0.9 (0.2-0.8); MONOCYTES % 9.4 % (4.4-11.3); NEUTROPHILS % 81.1 % (38.7-80.0); PLATELET COUNT 307 x10e3/uL (140-360); RED BLOOD COUNT 4.42 x10e6/uL (4.3-5.7); RED CELL DISTRIBUTION WIDTH 22.1 % (11.7-14.4)
[2021-12-30] MEDS: MEROPENEM 1 GM in SODIUM CHLORIDE 0.9% 100 ML IV SCH (06:22)
[2021-12-30] MEDS ORDERED: IOPAMIDOL 370 MG/ML 100 ML INFUS..BTL INJ ONE (06:22)
[2021-12-30 06:35] LABS: ANION GAP 11.9 mmol/L (8-16); CALCIUM 8.2 mg/dL (8.4-10.2); CREATININE, SERUM 0.67 mg/dL (0.72-1.25); POTASSIUM 3.9 mmol/L (3.5-5.1)
[2021-12-30] MEDS ORDERED: PROPOFOL IV EMULSION 10 MG/ML 20 ML VIAL ONE (08:17)
[2021-12-30] MEDS ORDERED: LIDOCAINE HCL 2% LOCAL INJ 5 ML SDV VIAL INJ ONE (08:17)
[2021-12-30] MEDS ORDERED: FENTANYL CITRATE/PF 100MCG/2 ML INJ ONE (08:21)
[2021-12-30 08:37] LABS: PLATELET ESTIMATE ADEQUATE; PLATELET MORPHOLOGY COMMENT NORMAL; RBC MORPHOLOGY COMMENT ABNORMAL
[2021-12-30 08:38] LABS: ANISOCYTOSIS SLIGHT; POIKILOCYTOSIS SLIGHT
[2021-12-30] MEDS: VALSARTAN/SACUBITRIL 24MG/26MG 1 EA TAB PO SCH ×2 (08:44→17:54)
[2021-12-30] MEDS: ASPIRIN 81 MG ENTERIC COATED PO SCH ×2 (08:44→09:00)
[2021-12-30] MEDS: IRON SUCROSE 100 MG in SODIUM CHLORIDE 0.9% 100 ML IV SCH (08:44)
[2021-12-30] MEDS: METOPROLOL SUCCINATE 25 MG TAB XL PO SCH (08:45)
[2021-12-30] MEDS: CLOPIDOGREL BISULFATE 75 MG TAB PO SCH ×2 (08:45→09:00)
[2021-12-30] MEDS: CEFTRIAXONE 2 GM in SODIUM CHLORIDE 0.9% 100 ML IV SCH (13:14)
[2021-12-30] MEDS ORDERED: METOCLOPRAMIDE HCL 10 MG/2ML VIAL IV ONE (13:30)
[2021-12-30] MEDS: METOCLOPRAMIDE HCL 10 MG/2ML VIAL IV SCH ×2 (17:54→23:03)
[2021-12-30] MEDS: ATORVASTATIN 40 MG TAB PO SCH (21:00)
[2021-12-31] VITALS: BP 163/64
[2021-12-31 04:00] VITALS: BP 158/84
[2021-12-31] MEDS: HYDROMORPHONE 1MG/1ML INJ IV PRN ×2 (05:16→09:40)
[2021-12-31] MEDS: ONDANSETRON HCL INJ 2MG/ML 2ML 2 MG/ML VIAL IV PRN (05:16)
[2021-12-31] MEDS: METOCLOPRAMIDE HCL 10 MG/2ML VIAL IV SCH ×3 (05:16→17:36)
[2021-12-31 08:48] VITALS: BP 158/84
[2021-12-31] MEDS: METOPROLOL SUCCINATE 25 MG TAB XL PO SCH (09:28)
[2021-12-31] MEDS: VALSARTAN/SACUBITRIL 24MG/26MG 1 EA TAB PO SCH ×2 (09:28→16:28)
[2021-12-31] MEDS: IRON SUCROSE 100 MG in SODIUM CHLORIDE 0.9% 100 ML IV SCH (09:29)
[2021-12-31] MEDS: ASPIRIN 81 MG ENTERIC COATED PO SCH (09:29)
[2021-12-31] MEDS: CLOPIDOGREL BISULFATE 75 MG TAB PO SCH (09:29)
[2021-12-31] MEDS ORDERED: SODIUM CHLORIDE 0.9% 0 ML ONE (09:36)
[2021-12-31 09:39] VITALS: BP 157/80
[2021-12-31 11:32] VITALS: BP 170/91
[2021-12-31] MEDS: CEFTRIAXONE 2 GM in SODIUM CHLORIDE 0.9% 100 ML IV SCH (13:10)
[2021-12-31] MEDS ORDERED: METHYLPREDNISOLONE SOD SUCC 40 MG/ML VIAL 1ML IV NR (13:30)
[2021-12-31] MEDS: ACETAMINOPHEN/CODEINE 300MG - 30MG TAB PO PRN (16:26)
[2021-12-31] MEDS: LIDOCAINE 4% PATCH TP SCH (16:27)
[2021-12-31 20:00] VITALS: BP 176/95
[2021-12-31] MEDS: ATORVASTATIN 40 MG TAB PO SCH (20:57)
[2021-12-31] MEDS ORDERED: IOPAMIDOL 370 MG/ML 100 ML INFUS..BTL INJ ONE (21:25)
[2022-01-01] VITALS (7 sets, daily range): BP systolic 101–159; BP diastolic 75–87
[2022-01-01] MEDS ORDERED: DONNATAL/LIDOCAINE/MAALOX 30 ML SUSP PO ONE (00:30)
[2022-01-01] MEDS: METOCLOPRAMIDE HCL 10 MG/2ML VIAL IV SCH ×5 (01:41→23:20)
[2022-01-01 04:54] LABS: BASOPHILS % 0.3 % (0.0-1.0); EOSINOPHILS # (AUTO) 0.3 (0.0-0.4); EOSINOPHILS % 4.4 % (0.0-6.0); HEMATOCRIT 36.5 % (38.2-49.6); HEMOGLOBIN 10.2 g/dL (14.0-18.0); LYMPHOCYTES # (AUTO) 0.7 (1.0-3.2); LYMPHOCYTES % 9.3 % (18.0-39.1); MEAN CORPUSCULAR HEMOGLOBIN 18.9 pg (28-32); MEAN CORPUSCULAR HGB CONC 27.9 g/dL (31-35); MEAN CORPUSCULAR VOLUME 67.6 fL (81-99); MONOCYTES # (AUTO) 0.7 (0.2-0.8); MONOCYTES % 10.1 % (4.4-11.3); NEUTROPHILS # (AUTO) 5.4 (2.1-6.9); NEUTROPHILS % 75.5 % (38.7-80.0); PLATELET COUNT 436 x10e3/uL (140-360); RED CELL DISTRIBUTION WIDTH 22.5 % (11.7-14.4)
[2022-01-01] MEDS: LIDOCAINE VISC 2% SOLN 15 ML UDC PO SCH ×5 (05:13→23:25)
[2022-01-01 05:14] LABS: CREATININE, SERUM 0.63 mg/dL (0.72-1.25)
[2022-01-01] MEDS: HYDROMORPHONE 1MG/1ML INJ IV PRN (08:47)
[2022-01-01] MEDS: ONDANSETRON HCL INJ 2MG/ML 2ML 2 MG/ML VIAL IV PRN (08:49)
[2022-01-01] MEDS: VALSARTAN/SACUBITRIL 24MG/26MG 1 EA TAB PO SCH ×2 (08:53→16:07)
[2022-01-01] MEDS: ASPIRIN 81 MG ENTERIC COATED PO SCH (08:53)
[2022-01-01] MEDS: METOPROLOL SUCCINATE 25 MG TAB XL PO SCH (08:54)
[2022-01-01] MEDS: CLOPIDOGREL BISULFATE 75 MG TAB PO SCH (08:54)
[2022-01-01] MEDS: IRON SUCROSE 100 MG in SODIUM CHLORIDE 0.9% 100 ML IV SCH (08:58)
[2022-01-01] MEDS ORDERED: SODIUM CHLORIDE 0.9% 250ML 250 ML ONE (09:09)
[2022-01-01] MEDS: CEFTRIAXONE 2 GM in SODIUM CHLORIDE 0.9% 100 ML IV SCH (11:09)
[2022-01-01] MEDS: ACETAMINOPHEN/CODEINE 300MG - 30MG TAB PO PRN (14:57)
[2022-01-01] MEDS: ATORVASTATIN 40 MG TAB PO SCH (20:48)
[2022-01-01] MEDS ORDERED: NAPROXEN 250 MG TAB PO STA (22:52)
[2022-01-01] MEDS ORDERED: CYCLOBENZAPRINE HCL 10 MG TAB PO STA (22:52)
[2022-01-02] VITALS (7 sets, daily range): BP systolic 112–138; BP diastolic 60–88
[2022-01-02] MEDS: LIDOCAINE VISC 2% SOLN 15 ML UDC PO SCH ×3 (05:35→16:51)
[2022-01-02] MEDS: METOCLOPRAMIDE HCL 10 MG/2ML VIAL IV SCH ×3 (05:39→16:50)
[2022-01-02 05:56] LABS: BASOPHILS % 0.3 % (0.0-1.0); EOSINOPHILS # (AUTO) 0.5 (0.0-0.4); EOSINOPHILS % 7.1 % (0.0-6.0); HEMATOCRIT 33.3 % (38.2-49.6); HEMOGLOBIN 9.5 g/dL (14.0-18.0); LYMPHOCYTES # (AUTO) 1.1 (1.0-3.2); LYMPHOCYTES % 15.3 % (18.0-39.1); MEAN CORPUSCULAR HEMOGLOBIN 19.1 pg (28-32); MEAN CORPUSCULAR HGB CONC 28.5 g/dL (31-35); MONOCYTES # (AUTO) 0.7 (0.2-0.8); MONOCYTES % 8.9 % (4.4-11.3); NEUTROPHILS # (AUTO) 5.1 (2.1-6.9); NEUTROPHILS % 68.1 % (38.7-80.0); PLATELET COUNT 388 x10e3/uL (140-360); RED BLOOD COUNT 4.97 x10e6/uL (4.3-5.7); RED CELL DISTRIBUTION WIDTH 22.6 % (11.7-14.4)
[2022-01-02 06:27] LABS: ANION GAP 13.9 mmol/L (8-16); CALCIUM 7.7 mg/dL (8.4-10.2); CREATININE, SERUM 0.71 mg/dL (0.72-1.25); MAGNESIUM 2.2 MG/DL (1.3-2.1); PHOSPHORUS 3.5 MG/DL (2.3-4.7); POTASSIUM 3.9 mmol/L (3.5-5.1)
[2022-01-02 07:53] LABS: EOSINOPHILS % (MANUAL) 6 % (0-7); LYMPHOCYTES % (MANUAL) 13 % (19-48); MONOCYTES % (MANUAL) 1 % (3.4-9.0); NEUTROPHILS % (MANUAL) 79 % (40-74); PLATELET ESTIMATE ADEQUATE; PLATELET MORPHOLOGY COMMENT NORMAL
[2022-01-02 07:54] LABS: MICROCYTOSIS MODERATE; RBC MORPHOLOGY COMMENT ABNORMAL
[2022-01-02] MEDS: IRON SUCROSE 100 MG in SODIUM CHLORIDE 0.9% 100 ML IV SCH (09:58)
[2022-01-02] MEDS: VALSARTAN/SACUBITRIL 24MG/26MG 1 EA TAB PO SCH ×2 (09:59→16:50)
[2022-01-02] MEDS: CYCLOBENZAPRINE HCL 10 MG TAB PO SCH ×2 (09:59→16:49)
[2022-01-02] MEDS: ASPIRIN 81 MG ENTERIC COATED PO SCH (09:59)
[2022-01-02] MEDS: NAPROXEN 250 MG TAB PO SCH ×2 (09:59→16:50)
[2022-01-02] MEDS: METOPROLOL SUCCINATE 25 MG TAB XL PO SCH (10:00)
[2022-01-02] MEDS: CLOPIDOGREL BISULFATE 75 MG TAB PO SCH (10:00)
[2022-01-02] MEDS: LIDOCAINE 4% PATCH TP SCH (10:00)
[2022-01-02] MEDS: ACETAMINOPHEN/CODEINE 300MG - 30MG TAB PO PRN ×2 (11:28→19:28)
[2022-01-02] MEDS: CEFTRIAXONE 2 GM in SODIUM CHLORIDE 0.9% 100 ML IV SCH (12:47)
[2022-01-02] MEDS: DOCUSATE SODIUM 100 MG CAP PO SCH (16:49)
[2022-01-02] MEDS: ATORVASTATIN 40 MG TAB PO SCH (21:45)
[2022-01-03] VITALS (8 sets, daily range): BP systolic 113–141; BP diastolic 54–88
[2022-01-03] MEDS: METOCLOPRAMIDE HCL 10 MG/2ML VIAL IV SCH ×4 (00:19→18:19)
[2022-01-03] MEDS: LIDOCAINE VISC 2% SOLN 15 ML UDC PO SCH ×4 (00:20→18:00)
[2022-01-03] MEDS: ACETAMINOPHEN/CODEINE 300MG - 30MG TAB PO PRN (00:28)
[2022-01-03 05:55] LABS: BASOPHILS # (AUTO) 0.1 (0.0-0.1); BASOPHILS % 0.9 % (0.0-1.0); EOSINOPHILS # (AUTO) 0.8 (0.0-0.4); HEMATOCRIT 32.1 % (38.2-49.6); HEMOGLOBIN 9.1 g/dL (14.0-18.0); LYMPHOCYTES # (AUTO) 0.8 (1.0-3.2); MEAN CORPUSCULAR HEMOGLOBIN 19.3 pg (28-32); MEAN CORPUSCULAR HGB CONC 28.3 g/dL (31-35); MEAN CORPUSCULAR VOLUME 68.2 fL (81-99); MONOCYTES # (AUTO) 0.6 (0.2-0.8); MONOCYTES % 10.4 % (4.4-11.3); NEUTROPHILS # (AUTO) 3.7 (2.1-6.9); NEUTROPHILS % 62.4 % (38.7-80.0); PLATELET COUNT 416 x10e3/uL (140-360); RED BLOOD COUNT 4.71 x10e6/uL (4.3-5.7); RED CELL DISTRIBUTION WIDTH 22.9 % (11.7-14.4)
[2022-01-03 06:12] LABS: ANION GAP 12.7 mmol/L (8-16); CREATININE, SERUM 0.65 mg/dL (0.72-1.25); POTASSIUM 3.7 mmol/L (3.5-5.1)
[2022-01-03] MEDS: NAPROXEN 250 MG TAB PO SCH ×2 (08:00→12:00)
[2022-01-03 08:27] LABS: ANISOCYTOSIS MODERATE; HYPOCHROMASIA MODERATE; MICROCYTOSIS MODERATE; OVALOCYTES FEW; PLATELET ESTIMATE ADEQUATE; PLATELET MORPHOLOGY COMMENT NORMAL; RBC MORPHOLOGY COMMENT ABNORMAL
[2022-01-03] MEDS: CLOPIDOGREL BISULFATE 75 MG TAB PO SCH (09:00)
[2022-01-03] MEDS: DOCUSATE SODIUM 100 MG CAP PO SCH ×2 (09:00→17:00)
[2022-01-03] MEDS: CYCLOBENZAPRINE HCL 10 MG TAB PO SCH ×3 (09:00→20:42)
[2022-01-03] MEDS: ASPIRIN 81 MG ENTERIC COATED PO SCH (09:00)
[2022-01-03] MEDS: METOPROLOL SUCCINATE 25 MG TAB XL PO SCH (09:00)
[2022-01-03] MEDS: VALSARTAN/SACUBITRIL 24MG/26MG 1 EA TAB PO SCH ×2 (09:00→17:00)
[2022-01-03] MEDS: ONDANSETRON HCL INJ 2MG/ML 2ML 2 MG/ML VIAL IV PRN (09:58)
[2022-01-03] MEDS: HYDROMORPHONE 1MG/1ML INJ IV PRN (09:59)
[2022-01-03] MEDS: LIDOCAINE 4% PATCH TP SCH (09:59)
[2022-01-03] MEDS: CEFTRIAXONE 2 GM in SODIUM CHLORIDE 0.9% 100 ML IV SCH (12:16)
[2022-01-03] MEDS ORDERED: HYDROCODONE/APAP 5MG-325MG TAB PO PRN (16:30)
[2022-01-03] MEDS ORDERED: BENZOCAINE 20% SPR 60 ML CAN ONE (16:48)
[2022-01-03] MEDS ORDERED: FENTANYL CITRATE/PF 100MCG/2 ML INJ ONE (16:48)
[2022-01-03] MEDS ORDERED: MIDAZOLAM HCL 2 MG/2 ML VIAL ONE ×2 (16:48→17:16)
[2022-01-03] MEDS ORDERED: SODIUM CHLORIDE 0.9% 1000ML 1,000 ML ONE (16:52)
[2022-01-03] MEDS: ATORVASTATIN 40 MG TAB PO SCH (20:42)
[2022-01-04] MEDS ORDERED: NAPROXEN 250 MG TAB PO STA (00:26)
[2022-01-04] MEDS: METOCLOPRAMIDE HCL 10 MG/2ML VIAL IV SCH ×4 (00:27→17:12)
[2022-01-04 01:33] VITALS: BP 145/78
[2022-01-04 05:26] LABS: BASOPHILS # (AUTO) 0.1 (0.0-0.1); BASOPHILS % 0.8 % (0.0-1.0); EOSINOPHILS # (AUTO) 0.5 (0.0-0.4); EOSINOPHILS % 6.5 % (0.0-6.0); HEMATOCRIT 31.9 % (38.2-49.6); HEMOGLOBIN 9.1 g/dL (14.0-18.0); LYMPHOCYTES # (AUTO) 1.2 (1.0-3.2); LYMPHOCYTES % 16.1 % (18.0-39.1); MEAN CORPUSCULAR HEMOGLOBIN 19.7 pg (28-32); MEAN CORPUSCULAR HGB CONC 28.5 g/dL (31-35); MONOCYTES # (AUTO) 0.6 (0.2-0.8); MONOCYTES % 7.9 % (4.4-11.3); NEUTROPHILS # (AUTO) 5.3 (2.1-6.9); NEUTROPHILS % 68.3 % (38.7-80.0); PLATELET COUNT 428 x10e3/uL (140-360); RED BLOOD COUNT 4.62 x10e6/uL (4.3-5.7); RED CELL DISTRIBUTION WIDTH 23.1 % (11.7-14.4)
[2022-01-04 05:46] VITALS: BP 144/74
[2022-01-04 05:59] LABS: ANION GAP 13.2 mmol/L (8-16); CALCIUM 7.7 mg/dL (8.4-10.2); CREATININE, SERUM 0.69 mg/dL (0.72-1.25); POTASSIUM 4.2 mmol/L (3.5-5.1)
[2022-01-04] MEDS: LIDOCAINE VISC 2% SOLN 15 ML UDC PO SCH ×4 (06:00→17:12)
[2022-01-04 08:15] VITALS: BP 130/75
[2022-01-04] MEDS ORDERED: SODIUM FERRIC GLUCONATE COMPLX 125 MG in SODIUM CHLORIDE 0.9% 100 ML IV SCH (09:00)
[2022-01-04] MEDS: NAPROXEN 250 MG TAB PO SCH ×2 (09:03→14:59)
[2022-01-04] MEDS: VALSARTAN/SACUBITRIL 24MG/26MG 1 EA TAB PO SCH ×2 (09:03→17:12)
[2022-01-04] MEDS: ASPIRIN 81 MG ENTERIC COATED PO SCH (09:03)
[2022-01-04] MEDS: CYCLOBENZAPRINE HCL 10 MG TAB PO SCH ×2 (09:04→14:59)
[2022-01-04] MEDS: LIDOCAINE 4% PATCH TP SCH (09:04)
[2022-01-04] MEDS: METOPROLOL SUCCINATE 25 MG TAB XL PO SCH (09:04)
[2022-01-04] MEDS: CLOPIDOGREL BISULFATE 75 MG TAB PO SCH (09:04)
[2022-01-04] MEDS: DOCUSATE SODIUM 100 MG CAP PO SCH ×2 (09:04→17:12)
[2022-01-04 09:52] VITALS: BP 139/74
[2022-01-04 11:08] LABS: PLATELET ESTIMATE ADEQUATE; PLATELET MORPHOLOGY COMMENT NORMAL
[2022-01-04 11:09] LABS: ANISOCYTOSIS MODERATE; HYPOCHROMASIA MODERATE; MICROCYTOSIS MODERATE; OVALOCYTES FEW; RBC MORPHOLOGY COMMENT ABNORMAL
[2022-01-04 11:24] VITALS: BP 149/70
[2022-01-04] MEDS: CEFTRIAXONE 2 GM in SODIUM CHLORIDE 0.9% 100 ML IV SCH (12:16)
[2022-01-04] MEDS ORDERED: LEVOFLOXACIN 500 MG TAB PO SCH (14:00)
[2022-01-04] MEDS ORDERED: PANTOPRAZOLE SO40 MG PO (15:36)
[2022-01-04] MEDS ORDERED: Levofloxacin PO (15:36)
[2022-01-04 15:44] VITALS: BP 116/59
== END 2022-01-04 18:43 | disposition home or self-care (01) | DRG 872 ==
LOC: ER 18:03 → ERHOLD 23:38 → MED/SURG2 12-28 00:42 → OBSVTOIN 12-29 11:45
PROVIDERS: ADMIT Internal Medicine; ATTEND Internal Medicine
PROC: 3E03329 Introduction of Other Anti-infective into Peripheral Vein, Percutaneous Approach (ICD-10-PCS; 2021-12-28)
PROC: 0DB68ZX Excision of Stomach, Via Natural or Artificial Opening Endoscopic, Diagnostic (ICD-10-PCS; principal; 2021-12-30 11:57)
PROC: 0D758ZZ Dilation of Esophagus, Via Natural or Artificial Opening Endoscopic (ICD-10-PCS; 2021-12-30 11:57)
PROC: B24BZZ4 Ultrasonography of Heart with Aorta, Transesophageal (ICD-10-PCS; 2022-01-03)
DX: R78.81 Bacteremia (principal); I50.22 Chronic systolic (congestive) heart failure; Y71.1 Therapeutic (nonsurgical) and rehabilitative cardiovascular devices associated with adverse incidents; R07.89 Other chest pain; I11.0 Hypertensive heart disease with heart failure; I25.10 Atherosclerotic heart disease of native coronary artery without angina pectoris; K20.90 Esophagitis, unspecified without bleeding; M54.16 Radiculopathy, lumbar region; I27.20 Pulmonary hypertension, unspecified; D50.9 Iron deficiency anemia, unspecified; Z95.0 Presence of cardiac pacemaker; E11.43 Type 2 diabetes mellitus with diabetic autonomic (poly)neuropathy; K31.84 Gastroparesis; I48.91 Unspecified atrial fibrillation; R13.10 Dysphagia, unspecified; Z87.891 Personal history of nicotine dependence; E11.40 Type 2 diabetes mellitus with diabetic neuropathy, unspecified
CPT/HCPCS: 36415; 43239; 43450; 71045; 71260; 72129; 72132; 74176; 80048; 80053; 81001; 82150; 82270; 82550; 82553; 82607; 82728; 82746; 82948; 83540; 83605; 83690; 83735; 84100; 84466; 84484; 85025; 85045; 85379; 85610; 85730; 86039; 86140; 87040; 87071; 87186; 87205; 88305; 88312; 88342; 93005; 93306; 93307; 93312; 93325; 93355; 94799; 96361; 97139; 99152; 99251; 99284; G0378; J0696; J1170; J1756; J1885; J2001; J2185; J2250; J2270; J2405; J2543; J2765; J2916; J3010; J7030; J7050; Q9967

== ENCOUNTER → 2022-01-26 | Day surgery (SDC) | payer BC, MEDICARE ==
[2022-01-24 11:35] LABS: BASOPHILS % 0.4 % (0.0-1.0); EOSINOPHILS # (AUTO) 0.4 (0.0-0.4); EOSINOPHILS % 4.9 % (0.0-6.0); HEMATOCRIT 35.9 % (38.2-49.6); HEMOGLOBIN 10.3 g/dL (14.0-18.0); LYMPHOCYTES # (AUTO) 0.9 (1.0-3.2); LYMPHOCYTES % 11.4 % (18.0-39.1); MEAN CORPUSCULAR HEMOGLOBIN 20.5 pg (28-32); MEAN CORPUSCULAR HGB CONC 28.7 g/dL (31-35); MEAN CORPUSCULAR VOLUME 71.5 fL (81-99); MONOCYTES # (AUTO) 0.7 (0.2-0.8); MONOCYTES % 8.5 % (4.4-11.3); NEUTROPHILS # (AUTO) 5.8 (2.1-6.9); NEUTROPHILS % 74.7 % (38.7-80.0); PLATELET COUNT 287 x10e3/uL (140-360); RED BLOOD COUNT 5.02 x10e6/uL (4.3-5.7); RED CELL DISTRIBUTION WIDTH 23.7 % (11.7-14.4)
[2022-01-24 12:22] LABS: ANISOCYTOSIS MODERATE; ELLIPTOCYTE, RBC SLIGHT; HYPOCHROMASIA SLIGHT; MICROCYTOSIS SLIGHT; OVALOCYTES FEW; PLATELET MORPHOLOGY COMMENT NORMAL
[2022-01-24 12:23] LABS: PLATELET ESTIMATE ADEQUATE
[~2022-01-26] MED LIST changes: +ATORVASTATIN CA40 MG PO; +AZITHROMYCIN250 MG PO; +CEFEPIME 11 GM/50 ML IV; +CEFUROXIME250 MG PO; +CELEBREX200 MG PO; +CHOLESTYRAMINE L4 GM PO; +CLOPIDOGREL75 MG PO; +CYCLOBENZAPRINE10 MG PO; +ENTRESTO 24 MG1 EACH PO; +EPHEDRINE SULFATE INJ 50 MG/ML VIAL ONE; +FENTANYL CITRATE/PF 100MCG/2 ML INJ ONE; +HYOSCYAMINE SULFATE 0.5 MG/ML INJ ONE; +IRON PO; +Levofloxacin PO; +METOPROLOL SUCC25 MG PO; +METOPROLOL TART25 MG PO; +MIDAZOLAM HCL 2 MG/2 ML VIAL ONE; +PHENYLEPHRINE HCL 1% 10 MG/ML VIAL ONE; +PROPOFOL IV EMULSION 10 MG/ML 20 ML VIAL ONE; +TIZANIDINE HCL4 MG PO; +TOPROL XL50 MG PO; +TYLENOL325 MG PO; +ZETIA10 MG PO
[2022-01-26 10:50] VITALS: BP 110/68
== END | disposition home or self-care (01) ==
LOC: OR 08:23
PROVIDERS: ATTEND Internal Medicine Gastroenterology
DX: D64.89 Other specified anemias (principal); Z86.010 Personal history of colon polyps; R19.7 Diarrhea, unspecified; K57.30 Diverticulosis of large intestine without perforation or abscess without bleeding; K62.89 Other specified diseases of anus and rectum; K64.8 Other hemorrhoids; D72.820 Lymphocytosis (symptomatic); K29.60 Other gastritis without bleeding; K20.90 Esophagitis, unspecified without bleeding; Z71.3 Dietary counseling and surveillance; I25.10 Atherosclerotic heart disease of native coronary artery without angina pectoris; I48.91 Unspecified atrial fibrillation; I10 Essential (primary) hypertension; E78.5 Hyperlipidemia, unspecified; Z71.89 Other specified counseling; N40.2 Nodular prostate without lower urinary tract symptoms; Z01.812 Encounter for preprocedural laboratory examination; Z20.822 Contact with and (suspected) exposure to COVID-19; Z79.82 Long term (current) use of aspirin; Z79.02 Long term (current) use of antithrombotics/antiplatelets; Z79.899 Other long term (current) drug therapy; Z95.0 Presence of cardiac pacemaker
CPT/HCPCS: 0223U; 36415 ×2; 45380; 82948; 83630; 83993; 84152; 85025; 87045; 87177; 87324; 87328; 87449; J1980; J2250; J2370; J2704; J3010; 45378

== ENCOUNTER 2022-02-01 11:29 | Inpatient (IN) | payer BC, MEDICARE ==
[~2022-02-01] VITALS: Ht 175.3 cm; Wt 82.1 kg
[~2022-02-01 11:29] MED LIST changes: -CEFEPIME 11 GM/50 ML IV; -CHOLESTYRAMINE L4 GM PO; -EPHEDRINE SULFATE INJ 50 MG/ML VIAL ONE; -FENTANYL CITRATE/PF 100MCG/2 ML INJ ONE; -HYOSCYAMINE SULFATE 0.5 MG/ML INJ ONE; -MIDAZOLAM HCL 2 MG/2 ML VIAL ONE; -PHENYLEPHRINE HCL 1% 10 MG/ML VIAL ONE; -PROPOFOL IV EMULSION 10 MG/ML 20 ML VIAL ONE; -TOPROL XL50 MG PO
[2022-02-01] MEDS ORDERED: SODIUM CHLORIDE 0.9% 1000ML 1,000 ML IV STA (12:13)
[2022-02-01 13:06] LABS: BASOPHILS % 0.4 % (0.0-1.0); EOSINOPHILS % 0.1 % (0.0-6.0); HEMATOCRIT 32.9 % (38.2-49.6); HEMOGLOBIN 9.9 g/dL (14.0-18.0); LYMPHOCYTES # (AUTO) 0.6 (1.0-3.2); MEAN CORPUSCULAR HEMOGLOBIN 20.9 pg (28-32); MEAN CORPUSCULAR HGB CONC 30.1 g/dL (31-35); MEAN CORPUSCULAR VOLUME 69.6 fL (81-99); MONOCYTES # (AUTO) 0.9 (0.2-0.8); NEUTROPHILS # (AUTO) 8.6 (2.1-6.9); PLATELET COUNT 207 x10e3/uL (140-360); RED BLOOD COUNT 4.73 x10e6/uL (4.3-5.7); RED CELL DISTRIBUTION WIDTH 22.7 % (11.7-14.4)
[2022-02-01 13:10] LABS: CLARITY,URINE SL CLOUDY (CLEAR); COLOR,URINE YELLOW (YELLOW); KETONES,URINE 1+ (NEGATIVE); LEUKOCYTE ESTERASE ,URINE NEGATIVE (NEGATIVE); NITRITE,URINE NEGATIVE (NEGATIVE); PROTEIN,URINE DIPSTICK 1+ (NEGATIVE); URINE UROBILINOGEN 0.2 mg/dL (0.2 - 1)
[2022-02-01 13:12] LABS: INR 1.2; PROTHROMBIN TIME 16.3 seconds (11.9-14.5)
[2022-02-01 13:13] LABS: PARTIAL THROMBOPLASTIN TIME 30.6 seconds (23.8-35.5)
[2022-02-01 13:19] LABS: BACTERIA,URINE FEW /HPF; EPITHELIAL CELLS,URINE FEW /LPF; RBC,URINE 0-5 /HPF (0-5)
[2022-02-01 13:22] LABS: ALBUMIN 3.1 g/dL (3.5-5.0); ALBUMIN/GLOBULIN RATIO 0.8 (0.8-2.0); ANION GAP 15.7 mmol/L (8-16); CALCIUM 8.7 mg/dL (8.4-10.2); CREATININE, SERUM 0.77 mg/dL (0.72-1.25); MAGNESIUM 1.9 MG/DL (1.3-2.1); POTASSIUM 3.7 mmol/L (3.5-5.1)
[2022-02-01] MEDS ORDERED: SODIUM CHLORIDE 0.9% 1000ML 1,000 ML IV SCH (13:30)
[2022-02-01] MEDS ORDERED: ACETAMINOPHEN 325 MG TAB PO PRN (13:30)
[2022-02-01] MEDS ORDERED: ONDANSETRON HCL INJ 2MG/ML 2ML 2 MG/ML VIAL IV PRN ×2 (13:30→21:45)
[2022-02-01] MEDS ORDERED: SODIUM CHLORIDE 0.9% 1000ML 1,000 ML ONE (14:27)
[2022-02-01 15:50] VITALS: BP 116/61
[2022-02-01 16:34] VITALS: BP 166/61
[2022-02-01 20:00] VITALS: BP 125/75
[2022-02-01 20:16] LABS: BASOPHILS % 0.6 % (0.0-1.0); EOSINOPHILS # (AUTO) 0.2 (0.0-0.4); EOSINOPHILS % 3.6 % (0.0-6.0); HEMATOCRIT 34.6 % (38.2-49.6); LYMPHOCYTES % 15.2 % (18.0-39.1); MEAN CORPUSCULAR HEMOGLOBIN 21.1 pg (28-32); MEAN CORPUSCULAR HGB CONC 28.9 g/dL (31-35); MEAN CORPUSCULAR VOLUME 73.2 fL (81-99); MONOCYTES # (AUTO) 0.7 (0.2-0.8); MONOCYTES % 10.1 % (4.4-11.3); NEUTROPHILS # (AUTO) 4.5 (2.1-6.9); NEUTROPHILS % 70.2 % (38.7-80.0); PLATELET COUNT 186 x10e3/uL (140-360); RED BLOOD COUNT 4.73 x10e6/uL (4.3-5.7)
[2022-02-01 20:39] LABS: CREATINE KINASE MB 1.6 ng/mL (0-5.0)
[2022-02-01 21:00] VITALS: BP 125/75
[2022-02-01] MEDS: ATORVASTATIN 40 MG TAB PO SCH (21:57)
[2022-02-01] MEDS: ACETAMINOPHEN 325 MG TAB PO PRN (22:00)
[2022-02-02] VITALS (8 sets, daily range): BP systolic 110–160; BP diastolic 61–88
[2022-02-02 05:17] LABS: BASOPHILS % 0.6 % (0.0-1.0); EOSINOPHILS # (AUTO) 0.2 (0.0-0.4); EOSINOPHILS % 2.4 % (0.0-6.0); HEMATOCRIT 31.7 % (38.2-49.6); HEMOGLOBIN 9.4 g/dL (14.0-18.0); LYMPHOCYTES # (AUTO) 0.8 (1.0-3.2); LYMPHOCYTES % 12.1 % (18.0-39.1); MEAN CORPUSCULAR HEMOGLOBIN 20.9 pg (28-32); MEAN CORPUSCULAR HGB CONC 29.7 g/dL (31-35); MEAN CORPUSCULAR VOLUME 70.4 fL (81-99); MONOCYTES # (AUTO) 0.7 (0.2-0.8); MONOCYTES % 11.9 % (4.4-11.3); NEUTROPHILS # (AUTO) 4.5 (2.1-6.9); NEUTROPHILS % 72.5 % (38.7-80.0); PLATELET COUNT 186 x10e3/uL (140-360); RED CELL DISTRIBUTION WIDTH 22.7 % (11.7-14.4)
[2022-02-02 05:36] LABS: ALBUMIN 2.6 g/dL (3.5-5.0); ALBUMIN/GLOBULIN RATIO 0.8 (0.8-2.0); ANION GAP 14.7 mmol/L (8-16); CALCIUM 8.3 mg/dL (8.4-10.2); CREATININE, SERUM 0.64 mg/dL (0.72-1.25); POTASSIUM 3.7 mmol/L (3.5-5.1)
[2022-02-02 05:57] LABS: CREATINE KINASE MB 1.2 ng/mL (0-5.0)
[2022-02-02] MEDS: ASPIRIN 81 MG CHEW TAB PO SCH (08:26)
[2022-02-02] MEDS: CLOPIDOGREL BISULFATE 75 MG TAB PO SCH (08:26)
[2022-02-02] MEDS: ACETAMINOPHEN 325 MG TAB PO PRN ×2 (08:27→15:44)
[2022-02-02] MEDS: METOPROLOL SUCCINATE 25 MG TAB XL PO SCH (08:28)
[2022-02-02 09:07] LABS: CHOL/HDL RATIO 7.2 (3.9-4.7)
[2022-02-02] MEDS ORDERED: ONDANSETRON HCL 4 MG ORAL DISINTEGRATING TAB PO PRN (10:45)
[2022-02-02] MEDS ORDERED: MIDAZOLAM HCL 2 MG/2 ML VIAL ONE ×2 (14:26→14:38)
[2022-02-02] MEDS ORDERED: SODIUM CHLORIDE 0.9% 1000ML 0 ML ONE (14:27)
[2022-02-02] MEDS ORDERED: FENTANYL CITRATE/PF 100MCG/2 ML INJ ONE (14:27)
[2022-02-02] MEDS ORDERED: SODIUM CHLORIDE 0.9% 1000ML 2,000 ML ONE (14:34)
[2022-02-02] MEDS ORDERED: LIDOCAINE HCL 1% LOCAL INJ 20 ML VIAL ONE (14:35)
[2022-02-02] MEDS ORDERED: GENTAMICIN SULFATE 40 MG/ML 2 ML VIAL ONE (14:42)
[2022-02-02] MEDS ORDERED: Vancomycin IV 1 GM VIAL ONE (14:42)
[2022-02-02] MEDS ORDERED: Morphine 2mg Syringe 2 MG/ML SYR IV PRN (15:00)
[2022-02-02] MEDS ORDERED: [UNRECOGNIZED DRUG - OTHER] IV STA (15:32)
[2022-02-02] MEDS ORDERED: GENTAMICIN IV STA (15:32)
[2022-02-02] MEDS ORDERED: IOPAMIDOL 370 MG/ML 100 ML INFUS..BTL INJ ONE (15:58)
[2022-02-02] MEDS: CEFEPIME 2 GM in SODIUM CHLORIDE 0.9% 100 ML IV SCH (16:37)
[2022-02-02] MEDS ORDERED: SODIUM CHLORIDE 0.9% IV ONE (17:00)
[2022-02-02] MEDS ORDERED: GENTAMICIN SULFATE IV ONE (17:00)
[2022-02-02 19:00] LABS: FREE THYROXINE INDEX 1.9631 (1.4-3.8); THYROID STIMULATING HORMONE 1.281 uIU/mL (0.350-4.940)
[2022-02-02] MEDS: ATORVASTATIN 40 MG TAB PO SCH (22:01)
[2022-02-03] VITALS (9 sets, daily range): BP systolic 128–154; BP diastolic 55–83
[2022-02-03] MEDS: CEFEPIME 2 GM in SODIUM CHLORIDE 0.9% 100 ML IV SCH ×4 (01:03→23:50)
[2022-02-03 05:54] LABS: BASOPHILS % 0.4 % (0.0-1.0); EOSINOPHILS # (AUTO) 0.1 (0.0-0.4); HEMOGLOBIN 8.7 g/dL (14.0-18.0); LYMPHOCYTES # (AUTO) 1.3 (1.0-3.2); LYMPHOCYTES % 23.6 % (18.0-39.1); MEAN CORPUSCULAR HEMOGLOBIN 20.8 pg (28-32); MEAN CORPUSCULAR VOLUME 69.4 fL (81-99); MONOCYTES # (AUTO) 0.4 (0.2-0.8); MONOCYTES % 7.5 % (4.4-11.3); NEUTROPHILS # (AUTO) 3.7 (2.1-6.9); NEUTROPHILS % 66.1 % (38.7-80.0); PLATELET COUNT 153 x10e3/uL (140-360); RED BLOOD COUNT 4.18 x10e6/uL (4.3-5.7); RED CELL DISTRIBUTION WIDTH 22.7 % (11.7-14.4)
[2022-02-03 06:11] LABS: ANION GAP 13.4 mmol/L (8-16); CALCIUM 8.1 mg/dL (8.4-10.2); CREATININE, SERUM 0.59 mg/dL (0.72-1.25); POTASSIUM 3.4 mmol/L (3.5-5.1)
[2022-02-03 07:21] LABS: ANISOCYTOSIS MODERATE; PLATELET ESTIMATE ADEQUATE; PLATELET MORPHOLOGY COMMENT NORMAL; RBC MORPHOLOGY COMMENT ABNORMAL
[2022-02-03 07:22] LABS: HYPOCHROMASIA MODERATE; MICROCYTOSIS MODERATE
[2022-02-03] MEDS: METOPROLOL SUCCINATE 25 MG TAB XL PO SCH (08:56)
[2022-02-03] MEDS: CLOPIDOGREL BISULFATE 75 MG TAB PO SCH (08:56)
[2022-02-03] MEDS: ASPIRIN 81 MG CHEW TAB PO SCH (08:57)
[2022-02-03] MEDS ORDERED: POTASSIUM CHLORIDE 20 MEQ TAB CR PO ONE (13:00)
[2022-02-03] MEDS: VALSARTAN/SACUBITRIL 24MG/26MG 1 EA TAB PO SCH (17:11)
[2022-02-03] MEDS: ATORVASTATIN 40 MG TAB PO SCH (20:16)
[2022-02-04] VITALS (8 sets, daily range): BP systolic 143–174; BP diastolic 80–94
[2022-02-04] MEDS: Vancomycin IV 1 GM in SODIUM CHLORIDE 0.9% 250ML 250 ML IV SCH ×2 (00:51→09:46)
[2022-02-04] MEDS: ASPIRIN 81 MG CHEW TAB PO SCH (08:31)
[2022-02-04] MEDS: CLOPIDOGREL BISULFATE 75 MG TAB PO SCH (08:31)
[2022-02-04] MEDS: METOPROLOL SUCCINATE 25 MG TAB XL PO SCH (08:32)
[2022-02-04] MEDS: CEFEPIME 2 GM in SODIUM CHLORIDE 0.9% 100 ML IV SCH ×2 (08:32→16:00)
[2022-02-04] MEDS: VALSARTAN/SACUBITRIL 24MG/26MG 1 EA TAB PO SCH ×2 (08:32→17:49)
[2022-02-04] MEDS: ACETAMINOPHEN 325 MG TAB PO PRN (08:56)
[2022-02-04] MEDS ORDERED: POTASSIUM CHLORIDE 20 MEQ TAB CR PO ONE (17:00)
[2022-02-04] MEDS: ATORVASTATIN 40 MG TAB PO SCH (21:09)
[2022-02-05] VITALS (8 sets, daily range): BP systolic 130–176; BP diastolic 85–95
[2022-02-05] MEDS: CEFEPIME 2 GM in SODIUM CHLORIDE 0.9% 100 ML IV SCH ×4 (01:50→23:57)
[2022-02-05 05:08] LABS: BASOPHILS % 0.3 % (0.0-1.0); EOSINOPHILS # (AUTO) 0.2 (0.0-0.4); EOSINOPHILS % 3.2 % (0.0-6.0); HEMATOCRIT 34.8 % (38.2-49.6); HEMOGLOBIN 10.3 g/dL (14.0-18.0); LYMPHOCYTES # (AUTO) 0.9 (1.0-3.2); LYMPHOCYTES % 12.1 % (18.0-39.1); MEAN CORPUSCULAR HEMOGLOBIN 20.8 pg (28-32); MEAN CORPUSCULAR HGB CONC 29.6 g/dL (31-35); MEAN CORPUSCULAR VOLUME 70.2 fL (81-99); MONOCYTES # (AUTO) 0.7 (0.2-0.8); MONOCYTES % 9.2 % (4.4-11.3); NEUTROPHILS # (AUTO) 5.7 (2.1-6.9); NEUTROPHILS % 74.9 % (38.7-80.0); PLATELET COUNT 231 x10e3/uL (140-360); RED BLOOD COUNT 4.96 x10e6/uL (4.3-5.7); RED CELL DISTRIBUTION WIDTH 22.8 % (11.7-14.4)
[2022-02-05 05:23] LABS: ANION GAP 13.4 mmol/L (8-16); CALCIUM 8.5 mg/dL (8.4-10.2); CREATININE, SERUM 0.58 mg/dL (0.72-1.25); MAGNESIUM 1.8 MG/DL (1.3-2.1); PHOSPHORUS 3.7 MG/DL (2.3-4.7); POTASSIUM 3.4 mmol/L (3.5-5.1)
[2022-02-05] MEDS: VALSARTAN/SACUBITRIL 24MG/26MG 1 EA TAB PO SCH ×2 (08:58→16:16)
[2022-02-05] MEDS: CLOPIDOGREL BISULFATE 75 MG TAB PO SCH (08:58)
[2022-02-05] MEDS: ASPIRIN 81 MG CHEW TAB PO SCH (08:58)
[2022-02-05] MEDS ORDERED: METOPROLOL SUCCINATE 25 MG TAB XL PO SCH ×2 (09:00→16:30)
[2022-02-05] MEDS ORDERED: AMLODIPINE BESYLATE 5 MG TAB PO ONE (10:00)
[2022-02-05] MEDS ORDERED: POTASSIUM CHLORIDE 20 MEQ TAB CR PO ONE (10:00)
[2022-02-05] MEDS ORDERED: TRAMADOL HCL 50 MG TAB PO PRN (13:45)
[2022-02-05] MEDS ORDERED: CYCLOBENZAPRINE HCL 10 MG TAB PO PRN (13:45)
[2022-02-05] MEDS: CHOLESTYRAMINE 4 GM PACKET PO SCH ×2 (16:16→20:30)
[2022-02-05] MEDS: FERROUS SULFATE 325 MG TAB PO SCH (16:16)
[2022-02-05] MEDS ORDERED: CHOLESTYRAMINE 4 GM PACKET PO ONE (20:00)
[2022-02-05] MEDS: ATORVASTATIN 40 MG TAB PO SCH (20:30)
[2022-02-06] VITALS: BP 152/82
[2022-02-06 04:00] VITALS: BP 142/95
[2022-02-06 06:46] LABS: BASOPHILS % 0.5 % (0.0-1.0); EOSINOPHILS # (AUTO) 0.5 (0.0-0.4); EOSINOPHILS % 6.8 % (0.0-6.0); HEMATOCRIT 34.8 % (38.2-49.6); HEMOGLOBIN 10.6 g/dL (14.0-18.0); LYMPHOCYTES # (AUTO) 1.1 (1.0-3.2); LYMPHOCYTES % 14.2 % (18.0-39.1); MEAN CORPUSCULAR HGB CONC 30.5 g/dL (31-35); MEAN CORPUSCULAR VOLUME 68.9 fL (81-99); MONOCYTES # (AUTO) 0.7 (0.2-0.8); MONOCYTES % 8.5 % (4.4-11.3); NEUTROPHILS # (AUTO) 5.4 (2.1-6.9); NEUTROPHILS % 69.7 % (38.7-80.0); PLATELET COUNT 278 x10e3/uL (140-360); RED BLOOD COUNT 5.05 x10e6/uL (4.3-5.7)
[2022-02-06 07:13] LABS: ANION GAP 13.7 mmol/L (8-16); CALCIUM 8.8 mg/dL (8.4-10.2); CREATININE, SERUM 0.57 mg/dL (0.72-1.25); POTASSIUM 3.7 mmol/L (3.5-5.1)
[2022-02-06 08:05] VITALS: BP 154/98
[2022-02-06 08:12] VITALS: BP 154/98
[2022-02-06 08:14] LABS: EOSINOPHILS % (MANUAL) 2 % (0-7); LYMPHOCYTES % (MANUAL) 14 % (19-48); MONOCYTES % (MANUAL) 5 % (3.4-9.0); NEUTROPHILS % (MANUAL) 77 % (40-74); PLATELET ESTIMATE ADEQUATE; PLATELET MORPHOLOGY COMMENT NORMAL; RBC MORPHOLOGY COMMENT NORMAL
[2022-02-06 08:15] LABS: MICROCYTOSIS SLIGHT
[2022-02-06] MEDS: CEFEPIME 2 GM in SODIUM CHLORIDE 0.9% 100 ML IV SCH ×2 (08:43→16:09)
[2022-02-06] MEDS: VALSARTAN/SACUBITRIL 24MG/26MG 1 EA TAB PO SCH (08:44)
[2022-02-06] MEDS: FERROUS SULFATE 325 MG TAB PO SCH (08:44)
[2022-02-06] MEDS: ASPIRIN 81 MG CHEW TAB PO SCH (08:44)
[2022-02-06] MEDS: CHOLESTYRAMINE 4 GM PACKET PO SCH ×2 (08:45→15:00)
[2022-02-06] MEDS: CLOPIDOGREL BISULFATE 75 MG TAB PO SCH (08:45)
[2022-02-06] MEDS ORDERED: METOPROLOL SUCCINATE 50 MG TAB XL PO SCH (09:00)
[2022-02-06 12:07] VITALS: BP 177/90
[2022-02-06] MEDS ORDERED: TOPROL XL50 MG PO (13:29)
[2022-02-06] MEDS ORDERED: CEFEPIME 11 GM/50 ML IV (13:29)
[2022-02-06] MEDS ORDERED: CHOLESTYRAMINE L4 GM PO (13:29)
[2022-02-06 14:13] LABS: OCCULT BLOOD STOOL POSITIVE (NEGATIVE)
[2022-02-06 15:58] VITALS: BP 197/95
[2022-02-06] MEDS ORDERED: HYDRALAZINE HCL 25 MG TAB PO SCH (17:15)
[2022-02-06] MEDS ORDERED: SACUBITRIL/VALSARTAN 1 EACH TABLET PO SCH (18:00)
== END 2022-02-06 17:49 | disposition home or self-care (01) | DRG 260 ==
LOC: ER 11:43 → ERHOLD 13:34 → UNDOADMIN 13:34 → ERHOLD 13:44 → MED/SURG3 15:12
PROVIDERS: ADMIT Internal Medicine; ATTEND Internal Medicine
PROC: 3E03329 Introduction of Other Anti-infective into Peripheral Vein, Percutaneous Approach (ICD-10-PCS; 2022-02-01)
PROC: 02PA3MZ Removal of Cardiac Lead from Heart, Percutaneous Approach (ICD-10-PCS; principal; 2022-02-02)
PROC: 0JPT0PZ Removal of Cardiac Rhythm Related Device from Trunk Subcutaneous Tissue and Fascia, Open Approach (ICD-10-PCS; 2022-02-02)
PROC: 02HV33Z Insertion of Infusion Device into Superior Vena Cava, Percutaneous Approach (ICD-10-PCS; 2022-02-04)
DX: T82.7XXA Infection and inflammatory reaction due to other cardiac and vascular devices, implants and grafts, initial encounter (principal); A41.53 Sepsis due to Serratia; I33.0 Acute and subacute infective endocarditis; I50.42 Chronic combined systolic (congestive) and diastolic (congestive) heart failure; Z16.24 Resistance to multiple antibiotics; I11.0 Hypertensive heart disease with heart failure; E11.69 Type 2 diabetes mellitus with other specified complication; E78.5 Hyperlipidemia, unspecified; N40.0 Benign prostatic hyperplasia without lower urinary tract symptoms; Z95.810 Presence of automatic (implantable) cardiac defibrillator; K57.90 Diverticulosis of intestine, part unspecified, without perforation or abscess without bleeding; I25.2 Old myocardial infarction; K21.9 Gastro-esophageal reflux disease without esophagitis; D64.9 Anemia, unspecified; I48.91 Unspecified atrial fibrillation; I25.10 Atherosclerotic heart disease of native coronary artery without angina pectoris; E87.6 Hypokalemia; R19.7 Diarrhea, unspecified; Z87.11 Personal history of peptic ulcer disease; Z20.822 Contact with and (suspected) exposure to COVID-19; Z79.82 Long term (current) use of aspirin
CPT/HCPCS: 33215; 33241; 36415; 36569; 71045; 74177; 76705; 80048; 80053; 80061; 81001; 82270; 82550; 82553; 82948; 83605; 83690; 83735; 83880; 84100; 84436; 84443; 84479; 84484; 85025; 85610; 85651; 85730; 86039; 86140; 87040; 87071; 87086; 87186; 87205; 87324; 87449; 87493; 93005; 93306; 94799; 99152; 99153; 99284; J0692; J0696; J1580; J2001; J2250; J3010; J3370; J7030; J7050; Q9967

== ENCOUNTER → 2022-02-20 | Outpatient (CLI) | payer BC, MEDICARE ==
[~2022-02-20] MED LIST changes: +CEFEPIME 11 GM/50 ML IV; +CHOLESTYRAMINE L4 GM PO; +TOPROL XL50 MG PO
== END ==
LOC: RAD 09:24
PROVIDERS: ATTEND Internal Medicine Cardiovascular Disease
DX: R06.00 Dyspnea, unspecified (principal)
CPT/HCPCS: 71046

== ENCOUNTER 2022-04-14 13:07 | Inpatient (IN) | payer BC, MEDICARE ==
[~2022-04-14] VITALS: Ht 175.3 cm; Wt 83.0 kg
[2022-04-14] MEDS ORDERED: ACETAMINOPHEN 1000 MG/100 ML IV STA (14:07)
[2022-04-14] MEDS ORDERED: SODIUM CHLORIDE 0.9% 1000ML 1,000 ML IV SCH (14:15)
[2022-04-14 14:26] LABS: BASOPHILS % 0.3 % (0.0-1.0); EOSINOPHILS % 0.1 % (0.0-6.0); HEMATOCRIT 38.3 % (38.2-49.6); HEMOGLOBIN 11.6 g/dL (14.0-18.0); LYMPHOCYTES # (AUTO) 0.6 (1.0-3.2); LYMPHOCYTES % 8.1 % (18.0-39.1); MEAN CORPUSCULAR HEMOGLOBIN 24.3 pg (28-32); MEAN CORPUSCULAR HGB CONC 30.3 g/dL (31-35); MEAN CORPUSCULAR VOLUME 80.3 fL (81-99); MONOCYTES # (AUTO) 0.9 (0.2-0.8); MONOCYTES % 11.2 % (4.4-11.3); NEUTROPHILS # (AUTO) 6.2 (2.1-6.9); NEUTROPHILS % 79.9 % (38.7-80.0); PLATELET COUNT 205 x10e3/uL (140-360); RED BLOOD COUNT 4.77 x10e6/uL (4.3-5.7); RED CELL DISTRIBUTION WIDTH 17.2 % (11.7-14.4)
[2022-04-14 14:34] LABS: INR 1.33; PROTHROMBIN TIME 17.6 seconds (11.9-14.5)
[2022-04-14 14:35] LABS: PARTIAL THROMBOPLASTIN TIME 34.1 seconds (23.8-35.5)
[2022-04-14 14:42] LABS: ALBUMIN 3.4 g/dL (3.5-5.0); ALBUMIN/GLOBULIN RATIO 0.9 (0.8-2.0); ANION GAP 14.9 mmol/L (8-16); CALCIUM 8.8 mg/dL (8.4-10.2); CREATININE, SERUM 0.77 mg/dL (0.72-1.25); POTASSIUM 3.9 mmol/L (3.5-5.1)
[2022-04-14 15:02] LABS: STREPTOCOCCUS GRP A ANTIGEN NEGATIVE (NEGATIVE)
[2022-04-14 15:02] LABS: CLARITY,URINE SL CLOUDY (CLEAR); COLOR,URINE AMBER (YELLOW); KETONES,URINE TRACE (NEGATIVE); LEUKOCYTE ESTERASE ,URINE NEGATIVE (NEGATIVE); NITRITE,URINE NEGATIVE (NEGATIVE); PROTEIN,URINE DIPSTICK 1+ (NEGATIVE); URINE UROBILINOGEN 0.2 mg/dL (0.2 - 1)
[2022-04-14 15:06] LABS: INFLUENZAE A&B ANTIGEN (RAPID) NEGATIVE (NEGATIVE)
[2022-04-14 15:12] LABS: AMORPHOUS SEDIMENT,URINE FEW (FEW); BACTERIA,URINE MODERATE /HPF; EPITHELIAL CELLS,URINE RARE /LPF; MUCUS,URINE MODERATE (RARE); WBC,URINE (MAN) 0-5 /HPF (0-5)
[2022-04-14] MEDS: Vancomycin IV 1 GM in SODIUM CHLORIDE 0.9% 250ML 250 ML IV SCH (15:50)
[2022-04-14] MEDS ORDERED: ONDANSETRON HCL INJ 2MG/ML 2ML 2 MG/ML VIAL IV PRN (16:30)
[2022-04-14] MEDS: SODIUM CHLORIDE 0.9% 1000ML 1,000 ML IV SCH (20:58)
[2022-04-14 21:00] VITALS: BP 101/73
[2022-04-14 21:02] VITALS: BP 101/73
[2022-04-14 21:40] VITALS: BP 101/73
[2022-04-14] MEDS ORDERED: INFLUENZA VIRUS VAC SPLIT INJ 0.5 ML SYR IM ONE (21:52)
[2022-04-14] MEDS ORDERED: ATORVASTATIN CA20 MG PO (22:26)
[2022-04-14] MEDS ORDERED: PANTOPRAZOLE SO40 MG PO (22:30)
[2022-04-14] MEDS ORDERED: CLOPIDOGREL75 MG PO (22:32)
[2022-04-14] MEDS ORDERED: ELIQUIS5 MG PO (22:33)
[2022-04-14] MEDS ORDERED: METOPROLOL SUCC50 MG PO (22:37)
[2022-04-15 01:08] VITALS: BP 160/78
[2022-04-15] MEDS ORDERED: ACETAMINOPHEN 325 MG TAB PO ONE (01:15)
[2022-04-15] MEDS ORDERED: ACETAMINOPHEN 325 MG TAB PO PRN (01:30)
[2022-04-15] MEDS: Vancomycin IV 1 GM in SODIUM CHLORIDE 0.9% 250ML 250 ML IV SCH ×2 (04:43→16:37)
[2022-04-15] MEDS: SODIUM CHLORIDE 0.9% 1000ML 1,000 ML IV SCH ×3 (04:44→20:27)
[2022-04-15 05:49] LABS: BASOPHILS % 0.3 % (0.0-1.0); EOSINOPHILS # (AUTO) 0.1 (0.0-0.4); EOSINOPHILS % 0.8 % (0.0-6.0); HEMATOCRIT 32.7 % (38.2-49.6); HEMOGLOBIN 10.1 g/dL (14.0-18.0); LYMPHOCYTES # (AUTO) 0.6 (1.0-3.2); LYMPHOCYTES % 10.1 % (18.0-39.1); MEAN CORPUSCULAR HEMOGLOBIN 24.3 pg (28-32); MEAN CORPUSCULAR HGB CONC 30.9 g/dL (31-35); MEAN CORPUSCULAR VOLUME 78.8 fL (81-99); MONOCYTES # (AUTO) 0.8 (0.2-0.8); MONOCYTES % 13.6 % (4.4-11.3); NEUTROPHILS # (AUTO) 4.4 (2.1-6.9); NEUTROPHILS % 74.7 % (38.7-80.0); PLATELET COUNT 171 x10e3/uL (140-360); RED BLOOD COUNT 4.15 x10e6/uL (4.3-5.7); RED CELL DISTRIBUTION WIDTH 17.4 % (11.7-14.4)
[2022-04-15 05:58] LABS: ALBUMIN/GLOBULIN RATIO 0.9 (0.8-2.0); ANION GAP 12.1 mmol/L (8-16); CALCIUM 8.1 mg/dL (8.4-10.2); CREATININE, SERUM 0.73 mg/dL (0.72-1.25); POTASSIUM 4.1 mmol/L (3.5-5.1)
[2022-04-15 06:13] VITALS: BP 124/53
[2022-04-15 07:28] VITALS: BP 146/71
[2022-04-15 11:39] VITALS: BP 147/72
[2022-04-15 15:22] VITALS: BP 121/64
[2022-04-15] MEDS ORDERED: ENTRESTO 24 MG1 EACH PO (15:28)
[2022-04-15] MEDS ORDERED: POLYETHYLENE GLYCOL 3350 17 GM PACK PO PRN (16:45)
[2022-04-15] MEDS: APIXABAN 5 MG TABLET PO SCH (16:58)
[2022-04-15] MEDS: PANTOPRAZOLE SOD 40 MG TABEC PO SCH (16:59)
[2022-04-15] MEDS: DOCUSATE SODIUM 100 MG CAP PO SCH (16:59)
[2022-04-15] MEDS: METOPROLOL SUCCINATE 50 MG TAB XL PO SCH (16:59)
[2022-04-15] MEDS: CLOPIDOGREL BISULFATE 75 MG TAB PO SCH (16:59)
[2022-04-15 19:35] VITALS: BP 154/82
[2022-04-15] MEDS: ATORVASTATIN 40 MG TAB PO SCH (20:27)
[2022-04-16] VITALS (7 sets, daily range): BP systolic 143–167; BP diastolic 70–83
[2022-04-16] MEDS: Vancomycin IV 1 GM in SODIUM CHLORIDE 0.9% 250ML 250 ML IV SCH ×2 (04:01→16:29)
[2022-04-16] MEDS: SODIUM CHLORIDE 0.9% 1000ML 1,000 ML IV SCH ×2 (04:41→16:32)
[2022-04-16] MEDS: DOCUSATE SODIUM 100 MG CAP PO SCH ×2 (09:21→16:30)
[2022-04-16] MEDS: CLOPIDOGREL BISULFATE 75 MG TAB PO SCH ×2 (09:21→16:30)
[2022-04-16] MEDS: METOPROLOL SUCCINATE 50 MG TAB XL PO SCH ×2 (09:21→16:30)
[2022-04-16] MEDS: PANTOPRAZOLE SOD 40 MG TABEC PO SCH ×2 (09:21→16:30)
[2022-04-16] MEDS: APIXABAN 5 MG TABLET PO SCH ×2 (09:21→16:30)
[2022-04-16] MEDS: HYDRALAZINE HCL 20 MG/ML VIAL IV PRN (20:15)
[2022-04-16] MEDS: ATORVASTATIN 40 MG TAB PO SCH (20:15)
[2022-04-17] VITALS (8 sets, daily range): BP systolic 140–160; BP diastolic 57–82
[2022-04-17] MEDS: Vancomycin IV 1 GM in SODIUM CHLORIDE 0.9% 250ML 250 ML IV SCH ×2 (04:02→15:13)
[2022-04-17 05:45] LABS: BASOPHILS % 0.6 % (0.0-1.0); EOSINOPHILS # (AUTO) 0.2 (0.0-0.4); EOSINOPHILS % 3.4 % (0.0-6.0); HEMOGLOBIN 10.2 g/dL (14.0-18.0); LYMPHOCYTES # (AUTO) 0.8 (1.0-3.2); MEAN CORPUSCULAR HEMOGLOBIN 24.2 pg (28-32); MEAN CORPUSCULAR VOLUME 80.6 fL (81-99); MONOCYTES # (AUTO) 0.6 (0.2-0.8); NEUTROPHILS # (AUTO) 3.6 (2.1-6.9); PLATELET COUNT 233 x10e3/uL (140-360); RED BLOOD COUNT 4.22 x10e6/uL (4.3-5.7); RED CELL DISTRIBUTION WIDTH 16.9 % (11.7-14.4)
[2022-04-17 06:11] LABS: ANION GAP 12.7 mmol/L (8-16); CALCIUM 8.4 mg/dL (8.4-10.2); CREATININE, SERUM 0.66 mg/dL (0.72-1.25); POTASSIUM 3.7 mmol/L (3.5-5.1)
[2022-04-17] MEDS: APIXABAN 5 MG TABLET PO SCH ×2 (08:50→17:02)
[2022-04-17] MEDS: DOCUSATE SODIUM 100 MG CAP PO SCH ×2 (08:50→17:00)
[2022-04-17] MEDS: METOPROLOL SUCCINATE 50 MG TAB XL PO SCH ×2 (08:51→21:19)
[2022-04-17] MEDS: PANTOPRAZOLE SOD 40 MG TABEC PO SCH ×2 (08:51→17:02)
[2022-04-17] MEDS: CLOPIDOGREL BISULFATE 75 MG TAB PO SCH ×2 (08:52→16:51)
[2022-04-17] MEDS ORDERED: ONDANSETRON HCL 4 MG ORAL DISINTEGRATING TAB PO PRN (13:30)
[2022-04-17] MEDS: ATORVASTATIN 40 MG TAB PO SCH (21:19)
[2022-04-18 01:15] VITALS: BP 157/74
[2022-04-18] MEDS: HYDRALAZINE HCL 20 MG/ML VIAL IV PRN (06:11)
[2022-04-18 06:14] VITALS: BP 161/84
[2022-04-18] MEDS: DOCUSATE SODIUM 100 MG CAP PO SCH (07:12)
[2022-04-18] MEDS: PANTOPRAZOLE SOD 40 MG TABEC PO SCH (07:12)
[2022-04-18] MEDS: CLOPIDOGREL BISULFATE 75 MG TAB PO SCH (07:12)
[2022-04-18] MEDS: APIXABAN 5 MG TABLET PO SCH (07:13)
[2022-04-18] MEDS: METOPROLOL SUCCINATE 50 MG TAB XL PO SCH (08:00)
[2022-04-18 08:20] VITALS: BP 137/82
[2022-04-18 08:42] VITALS: BP 137/82
[2022-04-18] MEDS ORDERED: SODIUM CHLORIDE 0.9% 500ML 0 ML ONE (11:53)
[2022-04-18] MEDS ORDERED: BENZOCAINE 20% SPR 60 ML CAN ONE (11:54)
[2022-04-18 12:07] VITALS: BP 153/87
[2022-04-18] MEDS ORDERED: MIDAZOLAM HCL 2 MG/2 ML VIAL ONE (12:14)
[2022-04-18] MEDS ORDERED: FENTANYL CITRATE/PF 100MCG/2 ML INJ ONE (12:15)
[2022-04-18] MEDS ORDERED: ACETAMINOPHEN325 M1 PO (15:37)
[2022-04-18] MEDS ORDERED: ONDANSETRON ODT4 MG PO (15:37)
[2022-04-18] MEDS ORDERED: Docusate Sodium PO (15:37)
[2022-04-18 16:19] VITALS: BP 127/69
== END 2022-04-18 16:18 | disposition home or self-care (01) | DRG 864 ==
LOC: ER 13:37 → MERGE 16:33 → ERHOLD 16:33 → UNMERGE 16:33 → MED/SURG3 20:34
PROVIDERS: ADMIT Internal Medicine; ATTEND Internal Medicine
PROC: B24BZZ4 Ultrasonography of Heart with Aorta, Transesophageal (ICD-10-PCS; principal; 2022-04-18)
DX: R50.82 Postprocedural fever (principal); I50.22 Chronic systolic (congestive) heart failure; I48.0 Paroxysmal atrial fibrillation; Z79.01 Long term (current) use of anticoagulants; I25.2 Old myocardial infarction; E78.5 Hyperlipidemia, unspecified; I25.10 Atherosclerotic heart disease of native coronary artery without angina pectoris; K21.9 Gastro-esophageal reflux disease without esophagitis; I10 Essential (primary) hypertension; Z86.16 Personal history of COVID-19; I11.0 Hypertensive heart disease with heart failure; R51.9 Headache, unspecified
CPT/HCPCS: 36415; 71045; 80048; 80053; 80202; 81001; 82948; 83518; 83605; 83880; 84484; 85025; 85610; 85730; 87040; 87070; 87086; 87400; 93005; 93312; 93320; 93325; 93355; 99152; 99284; J0360; J0692; J2250; J3010; J3370; J7030; J7040; J7050

== ENCOUNTER 2022-04-25 19:48 | Inpatient (IN) | payer BC, MEDICARE ==
[~2022-04-25] VITALS: Ht 175.3 cm; Wt 81.6 kg
[~2022-04-25 19:48] MED LIST changes: +ACETAMINOPHEN325 M1 PO; +ATORVASTATIN CA20 MG PO; +Docusate Sodium PO; +ELIQUIS5 MG PO; +LIDOCAINE HCL 2% LOCAL INJ 5 ML SDV VIAL INJ ONE; +ONDANSETRON ODT4 MG PO; +PROPOFOL IV EMULSION 10 MG/ML 20 ML VIAL ONE
[2022-04-25 20:33] LABS: BASOPHILS % 0.2 % (0.0-1.0); HEMATOCRIT 40.7 % (38.2-49.6); HEMOGLOBIN 12.2 g/dL (14.0-18.0); LYMPHOCYTES # (AUTO) 0.5 (1.0-3.2); LYMPHOCYTES % 4.6 % (18.0-39.1); MEAN CORPUSCULAR HEMOGLOBIN 24.4 pg (28-32); MEAN CORPUSCULAR VOLUME 81.4 fL (81-99); MONOCYTES # (AUTO) 0.3 (0.2-0.8); MONOCYTES % 2.3 % (4.4-11.3); NEUTROPHILS # (AUTO) 10.5 (2.1-6.9); NEUTROPHILS % 92.5 % (38.7-80.0); PLATELET COUNT 223 x10e3/uL (140-360); RED CELL DISTRIBUTION WIDTH 16.8 % (11.7-14.4)
[2022-04-25] MEDS ORDERED: IOPAMIDOL 370 MG/ML 100 ML INFUS..BTL INJ ONE (20:34)
[2022-04-25 20:39] LABS: INR 1.27
[2022-04-25 20:40] LABS: PARTIAL THROMBOPLASTIN TIME 32.7 seconds (23.8-35.5)
[2022-04-25 20:41] LABS: CLARITY,URINE SL CLOUDY (CLEAR); COLOR,URINE AMBER (YELLOW); KETONES,URINE 1+ (NEGATIVE); LEUKOCYTE ESTERASE ,URINE NEGATIVE (NEGATIVE); NITRITE,URINE NEGATIVE (NEGATIVE); PROTEIN,URINE DIPSTICK 2+ (NEGATIVE); URINE UROBILINOGEN 0.2 mg/dL (0.2 - 1)
[2022-04-25] MEDS ORDERED: ONDANSETRON HCL INJ 2MG/ML 2ML 2 MG/ML VIAL IV STA (20:41)
[2022-04-25] MEDS ORDERED: SODIUM CHLORIDE 0.9% 1000ML 1,000 ML IV SCH ×2 (20:45→23:45)
[2022-04-25] MEDS ORDERED: ACETAMINOPHEN 1000 MG/100 ML IV STA (20:45)
[2022-04-25 20:48] LABS: ALBUMIN 3.5 g/dL (3.5-5.0); ALBUMIN/GLOBULIN RATIO 0.9 (0.8-2.0); ANION GAP 23.3 mmol/L (8-16); CALCIUM 8.8 mg/dL (8.4-10.2); CREATININE, SERUM 1.06 mg/dL (0.72-1.25); POTASSIUM 4.3 mmol/L (3.5-5.1)
[2022-04-25] MEDS: Vancomycin IV 1 GM in SODIUM CHLORIDE 0.9% 250ML 250 ML IV SCH (20:49)
[2022-04-25] MEDS: SODIUM CHLORIDE 0.9% 1000ML 1,000 ML IV SCH (20:50)
[2022-04-25 20:54] LABS: BACTERIA,URINE FEW /HPF; MUCUS,URINE MODERATE (RARE)
[2022-04-25] MEDS ORDERED: ASPIRIN 81 MG CHEW TAB PO ONE (21:00)
[2022-04-25] MEDS ORDERED: DEXTROSE 50% SYRINGE 50 ML IV PRN (23:45)
[2022-04-25] MEDS ORDERED: ONDANSETRON HCL INJ 2MG/ML 2ML 2 MG/ML VIAL IV PRN (23:45)
[2022-04-26] VITALS (12 sets, daily range): BP systolic 118–191; BP diastolic 68–84
[2022-04-26] MEDS ORDERED: HYDRALAZINE HCL 20 MG/ML VIAL IV PRN (01:00)
[2022-04-26] MEDS ORDERED: GENTAMICIN 120MG/NS 100ML 100 ML IV ONE (01:00)
[2022-04-26] MEDS ORDERED: ALBUTEROL SULF 0.083% NEB SOLN 3 ML NEB NEB PRN (01:00)
[2022-04-26] MEDS ORDERED: GUAIFENESIN/DEXTROMETHORPHAN LIQD 5 ML UDC PO PRN (01:00)
[2022-04-26] MEDS ORDERED: GENTAMICIN 80MG/NS 100 ML 100 ML IV ONE (01:45)
[2022-04-26] MEDS: METOPROLOL SUCCINATE 50 MG TAB XL PO SCH ×3 (02:10→21:24)
[2022-04-26] MEDS ORDERED: GENTAMICIN 80MG/NS 100 ML 50 ML IV ONE (02:15)
[2022-04-26] MEDS: ACETAMINOPHEN 325 MG TAB PO PRN (02:20)
[2022-04-26 05:30] LABS: BASOPHILS # (AUTO) 0.1 (0.0-0.1); BASOPHILS % 0.3 % (0.0-1.0); EOSINOPHILS % 0.1 % (0.0-6.0); HEMATOCRIT 30.6 % (38.2-49.6); HEMOGLOBIN 9.8 g/dL (14.0-18.0); LYMPHOCYTES # (AUTO) 0.8 (1.0-3.2); LYMPHOCYTES % 5.5 % (18.0-39.1); MEAN CORPUSCULAR HEMOGLOBIN 24.4 pg (28-32); MEAN CORPUSCULAR VOLUME 76.1 fL (81-99); MONOCYTES # (AUTO) 1.4 (0.2-0.8); MONOCYTES % 9.4 % (4.4-11.3); NEUTROPHILS # (AUTO) 12.1 (2.1-6.9); NEUTROPHILS % 84.1 % (38.7-80.0); PLATELET COUNT 164 x10e3/uL (140-360); RED BLOOD COUNT 4.02 x10e6/uL (4.3-5.7); RED CELL DISTRIBUTION WIDTH 16.9 % (11.7-14.4)
[2022-04-26 06:21] LABS: ALBUMIN 2.7 g/dL (3.5-5.0); ALBUMIN/GLOBULIN RATIO 0.9 (0.8-2.0); ANION GAP 13.7 mmol/L (8-16); CALCIUM 8.3 mg/dL (8.4-10.2); CREATININE, SERUM 0.74 mg/dL (0.72-1.25); POTASSIUM 3.7 mmol/L (3.5-5.1)
[2022-04-26] MEDS: PANTOPRAZOLE SOD 40 MG TABEC PO SCH ×2 (07:45→16:18)
[2022-04-26] MEDS: INSULIN REGULAR, HUMAN 100 UNIT/1 ML SQ SCH ×4 (07:46→21:33)
[2022-04-26] MEDS: APIXABAN 5 MG TABLET PO SCH ×2 (09:00→16:18)
[2022-04-26] MEDS: MULTIVITAMINS/MINERALS TAB PO SCH (09:00)
[2022-04-26] MEDS: ASPIRIN 81 MG CHEW TAB PO SCH (09:01)
[2022-04-26] MEDS: THIAMINE HCL 100 MG TAB PO SCH (09:02)
[2022-04-26] MEDS: Vancomycin IV 1 GM in SODIUM CHLORIDE 0.9% 250ML 250 ML IV SCH (09:02)
[2022-04-26] MEDS ORDERED: LACTATED RINGER'S 1,000 ML INJ ONE (09:30)
[2022-04-26] MEDS: HYDROCODONE/APAP 7.5MG-325MG 1 EA TAB PO PRN ×2 (10:02→17:49)
[2022-04-26] MEDS: MEROPENEM 1 GM in SODIUM CHLORIDE 0.9% 100 ML IV SCH ×2 (16:18→21:25)
[2022-04-26] MEDS: VALSARTAN/SACUBITRIL 24MG/26MG 1 EA TAB PO SCH (17:52)
[2022-04-26] MEDS: ATORVASTATIN 40 MG TAB PO SCH (21:24)
[2022-04-27] VITALS (7 sets, daily range): BP systolic 141–173; BP diastolic 77–84
[2022-04-27] MEDS: ACETAMINOPHEN 325 MG TAB PO PRN ×2 (00:08→18:40)
[2022-04-27 05:15] LABS: BASOPHILS % 0.1 % (0.0-1.0); EOSINOPHILS % 0.1 % (0.0-6.0); HEMATOCRIT 33.6 % (38.2-49.6); HEMOGLOBIN 10.3 g/dL (14.0-18.0); LYMPHOCYTES # (AUTO) 0.7 (1.0-3.2); LYMPHOCYTES % 5.2 % (18.0-39.1); MEAN CORPUSCULAR HEMOGLOBIN 24.3 pg (28-32); MEAN CORPUSCULAR HGB CONC 30.7 g/dL (31-35); MEAN CORPUSCULAR VOLUME 79.2 fL (81-99); MONOCYTES # (AUTO) 1.4 (0.2-0.8); MONOCYTES % 10.3 % (4.4-11.3); NEUTROPHILS # (AUTO) 11.5 (2.1-6.9); NEUTROPHILS % 83.9 % (38.7-80.0); PLATELET COUNT 195 x10e3/uL (140-360); RED BLOOD COUNT 4.24 x10e6/uL (4.3-5.7)
[2022-04-27] MEDS: MEROPENEM 1 GM in SODIUM CHLORIDE 0.9% 100 ML IV SCH ×3 (05:27→22:32)
[2022-04-27 05:46] LABS: ALBUMIN 2.6 g/dL (3.5-5.0); ALBUMIN/GLOBULIN RATIO 0.8 (0.8-2.0); ANION GAP 14.3 mmol/L (8-16); CALCIUM 8.5 mg/dL (8.4-10.2); CREATININE, SERUM 0.66 mg/dL (0.72-1.25); POTASSIUM 3.3 mmol/L (3.5-5.1)
[2022-04-27] MEDS: HYDROCODONE/APAP 7.5MG-325MG 1 EA TAB PO PRN ×2 (07:28→12:39)
[2022-04-27] MEDS: INSULIN REGULAR, HUMAN 100 UNIT/1 ML SQ SCH ×4 (07:30→21:00)
[2022-04-27] MEDS ORDERED: ONDANSETRON HCL 4 MG ORAL DISINTEGRATING TAB PO PRN (08:45)
[2022-04-27] MEDS: APIXABAN 5 MG TABLET PO SCH ×2 (08:55→16:02)
[2022-04-27] MEDS: VALSARTAN/SACUBITRIL 24MG/26MG 1 EA TAB PO SCH ×2 (08:55→16:02)
[2022-04-27] MEDS: PANTOPRAZOLE SOD 40 MG TABEC PO SCH ×2 (08:55→16:02)
[2022-04-27] MEDS: MULTIVITAMINS/MINERALS TAB PO SCH (08:55)
[2022-04-27] MEDS: THIAMINE HCL 100 MG TAB PO SCH (08:55)
[2022-04-27] MEDS: ASPIRIN 81 MG CHEW TAB PO SCH (08:55)
[2022-04-27] MEDS: METOPROLOL SUCCINATE 50 MG TAB XL PO SCH ×2 (08:56→22:35)
[2022-04-27] MEDS: SODIUM CHLORIDE 0.9% 1000ML 1,000 ML IV SCH ×2 (08:57→16:07)
[2022-04-27] MEDS ORDERED: POTASSIUM CHLORIDE 20 MEQ TAB CR PO ONE (12:30)
[2022-04-27] MEDS: ATORVASTATIN 40 MG TAB PO SCH (22:35)
[2022-04-27] MEDS: MELATONIN 3 MG TAB PO PRN (22:55)
[2022-04-28] VITALS (13 sets, daily range): BP systolic 135–176; BP diastolic 70–91
[2022-04-28 05:08] LABS: BASOPHILS % 0.3 % (0.0-1.0); EOSINOPHILS # (AUTO) 0.1 (0.0-0.4); EOSINOPHILS % 0.5 % (0.0-6.0); HEMOGLOBIN 9.9 g/dL (14.0-18.0); LYMPHOCYTES # (AUTO) 0.8 (1.0-3.2); LYMPHOCYTES % 7.4 % (18.0-39.1); MEAN CORPUSCULAR HEMOGLOBIN 24.1 pg (28-32); MEAN CORPUSCULAR HGB CONC 30.9 g/dL (31-35); MONOCYTES # (AUTO) 1.2 (0.2-0.8); MONOCYTES % 10.8 % (4.4-11.3); NEUTROPHILS # (AUTO) 8.9 (2.1-6.9); NEUTROPHILS % 80.6 % (38.7-80.0); PLATELET COUNT 205 x10e3/uL (140-360); RED CELL DISTRIBUTION WIDTH 16.6 % (11.7-14.4)
[2022-04-28 05:25] LABS: ANION GAP 11.5 mmol/L (8-16); CREATININE, SERUM 0.59 mg/dL (0.72-1.25); POTASSIUM 3.5 mmol/L (3.5-5.1)
[2022-04-28] MEDS: MEROPENEM 1 GM in SODIUM CHLORIDE 0.9% 100 ML IV SCH (06:36)
[2022-04-28] MEDS: INSULIN REGULAR, HUMAN 100 UNIT/1 ML SQ SCH ×4 (07:30→21:00)
[2022-04-28] MEDS: PANTOPRAZOLE SOD 40 MG TABEC PO SCH ×2 (07:30→17:30)
[2022-04-28] MEDS: MULTIVITAMINS/MINERALS TAB PO SCH ×2 (09:00→17:40)
[2022-04-28] MEDS: METOPROLOL SUCCINATE 50 MG TAB XL PO SCH ×2 (09:00→21:00)
[2022-04-28] MEDS: THIAMINE HCL 100 MG TAB PO SCH ×2 (09:00→17:40)
[2022-04-28] MEDS: APIXABAN 5 MG TABLET PO SCH ×2 (09:00→17:41)
[2022-04-28] MEDS: ASPIRIN 81 MG CHEW TAB PO SCH ×2 (09:00→17:41)
[2022-04-28] MEDS: VALSARTAN/SACUBITRIL 24MG/26MG 1 EA TAB PO SCH ×2 (09:00→17:41)
[2022-04-28] MEDS: ACETAMINOPHEN 325 MG TAB PO PRN (09:28)
[2022-04-28] MEDS ORDERED: BENZOCAINE 20% SPR 60 ML CAN ONE (12:18)
[2022-04-28] MEDS ORDERED: SODIUM CHLORIDE 0.9% 1000ML 1,000 ML ONE (12:25)
[2022-04-28] MEDS: HYDROCODONE/APAP 7.5MG-325MG 1 EA TAB PO PRN ×2 (16:03→22:11)
[2022-04-28] MEDS ORDERED: CIPROFLOXACIN 500 MG TAB PO SCH (17:00)
[2022-04-28] MEDS: MELATONIN 3 MG TAB PO PRN (22:16)
[2022-04-28] MEDS: CIPROFLOXACIN 500 MG TAB PO SCH (22:17)
[2022-04-28] MEDS: ATORVASTATIN 40 MG TAB PO SCH (22:17)
[2022-04-29] MEDS: SODIUM CHLORIDE 0.9% 1000ML 1,000 ML IV SCH (05:49)
[2022-04-29] MEDS: PANTOPRAZOLE SOD 40 MG TABEC PO SCH ×2 (05:50→16:30)
[2022-04-29] MEDS: NYSTATIN SUSPENSION 5 ML UDC PO SCH ×4 (05:50→18:00)
[2022-04-29] MEDS: INSULIN REGULAR, HUMAN 100 UNIT/1 ML SQ SCH ×4 (07:30→21:29)
[2022-04-29] MEDS: HYDROCODONE/APAP 7.5MG-325MG 1 EA TAB PO PRN ×3 (08:25→19:10)
[2022-04-29 08:54] VITALS: BP 153/93
[2022-04-29] MEDS: METOPROLOL SUCCINATE 50 MG TAB XL PO SCH ×2 (09:00→21:05)
[2022-04-29] MEDS: CIPROFLOXACIN 500 MG TAB PO SCH ×2 (09:00→21:01)
[2022-04-29] MEDS: ASPIRIN 81 MG CHEW TAB PO SCH (09:36)
[2022-04-29] MEDS: THIAMINE HCL 100 MG TAB PO SCH (09:36)
[2022-04-29] MEDS: APIXABAN 5 MG TABLET PO SCH ×2 (09:36→17:00)
[2022-04-29] MEDS: VALSARTAN/SACUBITRIL 24MG/26MG 1 EA TAB PO SCH ×2 (09:36→17:00)
[2022-04-29] MEDS: MULTIVITAMINS/MINERALS TAB PO SCH (09:36)
[2022-04-29 12:32] VITALS: BP 129/71
[2022-04-29 12:38] VITALS: BP 129/71
[2022-04-29 17:41] VITALS: BP 147/66
[2022-04-29 20:00] VITALS: BP 146/74
[2022-04-29] MEDS: ATORVASTATIN 40 MG TAB PO SCH (21:01)
[2022-04-29] MEDS: MELATONIN 3 MG TAB PO PRN (21:16)
[2022-04-30] VITALS (8 sets, daily range): BP systolic 135–166; BP diastolic 69–90
[2022-04-30] MEDS: NYSTATIN SUSPENSION 5 ML UDC PO SCH ×5 (00:50→23:12)
[2022-04-30 05:36] LABS: BASOPHILS % 0.4 % (0.0-1.0); EOSINOPHILS # (AUTO) 0.1 (0.0-0.4); EOSINOPHILS % 0.6 % (0.0-6.0); HEMATOCRIT 31.1 % (38.2-49.6); HEMOGLOBIN 10.1 g/dL (14.0-18.0); LYMPHOCYTES # (AUTO) 0.9 (1.0-3.2); LYMPHOCYTES % 8.2 % (18.0-39.1); MEAN CORPUSCULAR HEMOGLOBIN 24.5 pg (28-32); MEAN CORPUSCULAR HGB CONC 32.5 g/dL (31-35); MEAN CORPUSCULAR VOLUME 75.3 fL (81-99); MONOCYTES # (AUTO) 0.9 (0.2-0.8); NEUTROPHILS # (AUTO) 8.5 (2.1-6.9); NEUTROPHILS % 81.3 % (38.7-80.0); PLATELET COUNT 293 x10e3/uL (140-360); RED BLOOD COUNT 4.13 x10e6/uL (4.3-5.7); RED CELL DISTRIBUTION WIDTH 16.4 % (11.7-14.4)
[2022-04-30 06:05] LABS: ANION GAP 15.4 mmol/L (8-16); CALCIUM 8.4 mg/dL (8.4-10.2); CREATININE, SERUM 0.58 mg/dL (0.72-1.25); POTASSIUM 3.4 mmol/L (3.5-5.1)
[2022-04-30] MEDS: INSULIN REGULAR, HUMAN 100 UNIT/1 ML SQ SCH ×4 (07:30→21:00)
[2022-04-30] MEDS: PANTOPRAZOLE SOD 40 MG TABEC PO SCH ×2 (08:53→16:32)
[2022-04-30] MEDS: MULTIVITAMINS/MINERALS TAB PO SCH (08:53)
[2022-04-30] MEDS: THIAMINE HCL 100 MG TAB PO SCH (08:53)
[2022-04-30] MEDS: CIPROFLOXACIN 500 MG TAB PO SCH ×2 (08:54→21:23)
[2022-04-30] MEDS: ASPIRIN 81 MG CHEW TAB PO SCH (08:54)
[2022-04-30] MEDS: APIXABAN 5 MG TABLET PO SCH ×2 (08:54→16:29)
[2022-04-30] MEDS: METOPROLOL SUCCINATE 50 MG TAB XL PO SCH ×2 (08:55→21:00)
[2022-04-30] MEDS: VALSARTAN/SACUBITRIL 24MG/26MG 1 EA TAB PO SCH ×2 (08:56→16:29)
[2022-04-30] MEDS: HYDROCODONE/APAP 7.5MG-325MG 1 EA TAB PO PRN ×3 (12:11→23:16)
[2022-04-30] MEDS: METOCLOPRAMIDE HCL 10 MG TAB PO SCH ×3 (12:11→21:24)
[2022-04-30] MEDS ORDERED: POTASSIUM CHLORIDE 10MEQ EA PO ONE (15:45)
[2022-04-30] MEDS: ATORVASTATIN 40 MG TAB PO SCH (21:23)
[2022-05-01] VITALS (8 sets, daily range): BP systolic 150–165; BP diastolic 69–87
[2022-05-01] MEDS: NYSTATIN SUSPENSION 5 ML UDC PO SCH ×4 (05:19→23:07)
[2022-05-01] MEDS: PANTOPRAZOLE SOD 40 MG TABEC PO SCH ×2 (07:29→16:50)
[2022-05-01] MEDS: METOCLOPRAMIDE HCL 10 MG TAB PO SCH ×4 (07:29→21:24)
[2022-05-01] MEDS: INSULIN REGULAR, HUMAN 100 UNIT/1 ML SQ SCH ×4 (07:30→21:00)
[2022-05-01] MEDS: HYDROCODONE/APAP 7.5MG-325MG 1 EA TAB PO PRN ×2 (07:30→16:56)
[2022-05-01 08:41] LABS: ANION GAP 10.6 mmol/L (8-16); CALCIUM 8.2 mg/dL (8.4-10.2); CREATININE, SERUM 0.57 mg/dL (0.72-1.25); POTASSIUM 3.6 mmol/L (3.5-5.1)
[2022-05-01] MEDS: METOPROLOL SUCCINATE 50 MG TAB XL PO SCH ×2 (09:27→21:24)
[2022-05-01] MEDS: MULTIVITAMINS/MINERALS TAB PO SCH (09:27)
[2022-05-01] MEDS: ASPIRIN 81 MG CHEW TAB PO SCH (09:27)
[2022-05-01] MEDS: VALSARTAN/SACUBITRIL 24MG/26MG 1 EA TAB PO SCH ×2 (09:27→16:50)
[2022-05-01] MEDS: CIPROFLOXACIN 500 MG TAB PO SCH ×2 (09:28→21:23)
[2022-05-01] MEDS: APIXABAN 5 MG TABLET PO SCH ×2 (09:28→16:50)
[2022-05-01] MEDS: THIAMINE HCL 100 MG TAB PO SCH (09:28)
[2022-05-01] MEDS ORDERED: GADOBENATE DIMEGLUMINE 1 ML IV ONE (14:49)
[2022-05-01] MEDS: BACLOFEN 10 MG TAB PO SCH ×2 (16:50→21:00)
[2022-05-01] MEDS: HYDRALAZINE HCL 25 MG TAB PO SCH (21:23)
[2022-05-01] MEDS: ATORVASTATIN 40 MG TAB PO SCH (21:24)
[2022-05-01] MEDS: ACETAMINOPHEN 325 MG TAB PO PRN (21:42)
[2022-05-02] VITALS: BP 147/76
[2022-05-02 04:00] VITALS: BP 154/74
[2022-05-02 05:12] LABS: BASOPHILS % 0.5 % (0.0-1.0); EOSINOPHILS # (AUTO) 0.2 (0.0-0.4); HEMATOCRIT 34.4 % (38.2-49.6); HEMOGLOBIN 10.4 g/dL (14.0-18.0); LYMPHOCYTES # (AUTO) 1.2 (1.0-3.2); LYMPHOCYTES % 13.9 % (18.0-39.1); MEAN CORPUSCULAR HEMOGLOBIN 24.3 pg (28-32); MEAN CORPUSCULAR HGB CONC 30.2 g/dL (31-35); MONOCYTES # (AUTO) 0.9 (0.2-0.8); MONOCYTES % 10.5 % (4.4-11.3); NEUTROPHILS # (AUTO) 6.1 (2.1-6.9); NEUTROPHILS % 72.5 % (38.7-80.0); PLATELET COUNT 356 x10e3/uL (140-360); RED BLOOD COUNT 4.28 x10e6/uL (4.3-5.7); RED CELL DISTRIBUTION WIDTH 16.6 % (11.7-14.4)
[2022-05-02 05:13] LABS: MEAN CORPUSCULAR VOLUME 80.4 fL (81-99)
[2022-05-02] MEDS: NYSTATIN SUSPENSION 5 ML UDC PO SCH ×3 (05:25→16:55)
[2022-05-02 05:37] LABS: ALBUMIN 3.1 g/dL (3.5-5.0); ANION GAP 12.7 mmol/L (8-16); CALCIUM 8.3 mg/dL (8.4-10.2); CREATININE, SERUM 0.63 mg/dL (0.72-1.25); MAGNESIUM 2.2 MG/DL (1.3-2.1); PHOSPHORUS 3.3 MG/DL (2.3-4.7); POTASSIUM 3.7 mmol/L (3.5-5.1)
[2022-05-02] MEDS: METOCLOPRAMIDE HCL 10 MG TAB PO SCH ×4 (07:24→21:32)
[2022-05-02] MEDS: PANTOPRAZOLE SOD 40 MG TABEC PO SCH ×2 (07:24→16:55)
[2022-05-02] MEDS: HYDROCODONE/APAP 7.5MG-325MG 1 EA TAB PO PRN (07:25)
[2022-05-02] MEDS: INSULIN REGULAR, HUMAN 100 UNIT/1 ML SQ SCH ×3 (07:30→21:00)
[2022-05-02 08:43] VITALS: BP 164/85
[2022-05-02] MEDS: APIXABAN 5 MG TABLET PO SCH ×2 (09:38→16:55)
[2022-05-02] MEDS: MULTIVITAMINS/MINERALS TAB PO SCH (09:38)
[2022-05-02] MEDS: THIAMINE HCL 100 MG TAB PO SCH (09:38)
[2022-05-02] MEDS: CIPROFLOXACIN 500 MG TAB PO SCH ×2 (09:39→21:32)
[2022-05-02] MEDS: VALSARTAN/SACUBITRIL 24MG/26MG 1 EA TAB PO SCH ×2 (09:39→16:58)
[2022-05-02] MEDS: METOPROLOL SUCCINATE 50 MG TAB XL PO SCH ×2 (09:39→21:32)
[2022-05-02] MEDS: HYDRALAZINE HCL 25 MG TAB PO SCH ×3 (09:39→21:32)
[2022-05-02] MEDS: ASPIRIN 81 MG CHEW TAB PO SCH (09:39)
[2022-05-02 13:13] VITALS: BP 165/74
[2022-05-02 16:58] VITALS: BP 159/69
[2022-05-02] MEDS: CHLORPROMAZINE HCL 25 MG TAB PO PRN (19:20)
[2022-05-02 20:00] VITALS: BP 118/34
[2022-05-02] MEDS: ATORVASTATIN 40 MG TAB PO SCH (21:33)
[2022-05-02] MEDS: ACETAMINOPHEN 325 MG TAB PO PRN (21:37)
[2022-05-03] MEDS: NYSTATIN SUSPENSION 5 ML UDC PO SCH ×4 (06:03→17:58)
[2022-05-03 09:02] VITALS: BP 142/73
[2022-05-03 09:20] VITALS: BP 142/73
[2022-05-03] MEDS: CIPROFLOXACIN 500 MG TAB PO SCH ×2 (09:41→21:48)
[2022-05-03] MEDS: INSULIN REGULAR, HUMAN 100 UNIT/1 ML SQ SCH ×4 (09:41→22:01)
[2022-05-03] MEDS: ASPIRIN 81 MG CHEW TAB PO SCH (09:41)
[2022-05-03] MEDS: CHLORPROMAZINE HCL 25 MG TAB PO PRN ×2 (09:41→22:39)
[2022-05-03] MEDS: MULTIVITAMINS/MINERALS TAB PO SCH (09:41)
[2022-05-03] MEDS: HYDRALAZINE HCL 25 MG TAB PO SCH ×3 (09:42→21:49)
[2022-05-03] MEDS: APIXABAN 5 MG TABLET PO SCH ×2 (09:42→17:58)
[2022-05-03] MEDS: PANTOPRAZOLE SOD 40 MG TABEC PO SCH ×2 (09:42→17:58)
[2022-05-03] MEDS: THIAMINE HCL 100 MG TAB PO SCH (09:43)
[2022-05-03] MEDS: VALSARTAN/SACUBITRIL 24MG/26MG 1 EA TAB PO SCH ×2 (09:43→17:58)
[2022-05-03] MEDS: METOCLOPRAMIDE HCL 10 MG TAB PO SCH ×4 (09:43→21:49)
[2022-05-03] MEDS: METOPROLOL SUCCINATE 50 MG TAB XL PO SCH ×2 (09:44→21:49)
[2022-05-03 12:02] VITALS: BP 136/76
[2022-05-03 16:53] VITALS: BP 150/77
[2022-05-03 20:00] VITALS: BP 151/78
[2022-05-03] MEDS: ATORVASTATIN 40 MG TAB PO SCH (21:48)
[2022-05-04] MEDS ORDERED: LIDOCAINE 4% PATCH TP PRN
[2022-05-04] MEDS: NYSTATIN SUSPENSION 5 ML UDC PO SCH ×4 (00:25→12:30)
[2022-05-04 00:42] VITALS: BP 127/65
[2022-05-04] MEDS: INSULIN REGULAR, HUMAN 100 UNIT/1 ML SQ SCH ×2 (07:30→11:30)
[2022-05-04] MEDS: ACETAMINOPHEN 325 MG TAB PO PRN (07:39)
[2022-05-04 08:42] VITALS: BP 126/75
[2022-05-04 08:59] LABS: BASOPHILS % 0.3 % (0.0-1.0); EOSINOPHILS # (AUTO) 0.2 (0.0-0.4); EOSINOPHILS % 2.2 % (0.0-6.0); HEMATOCRIT 33.2 % (38.2-49.6); HEMOGLOBIN 9.8 g/dL (14.0-18.0); LYMPHOCYTES # (AUTO) 0.8 (1.0-3.2); LYMPHOCYTES % 10.4 % (18.0-39.1); MEAN CORPUSCULAR HEMOGLOBIN 23.9 pg (28-32); MEAN CORPUSCULAR HGB CONC 29.5 g/dL (31-35); MONOCYTES # (AUTO) 0.7 (0.2-0.8); MONOCYTES % 8.9 % (4.4-11.3); NEUTROPHILS # (AUTO) 5.8 (2.1-6.9); NEUTROPHILS % 77.8 % (38.7-80.0); PLATELET COUNT 352 x10e3/uL (140-360); RED CELL DISTRIBUTION WIDTH 16.5 % (11.7-14.4)
[2022-05-04] MEDS: THIAMINE HCL 100 MG TAB PO SCH (09:00)
[2022-05-04] MEDS: METOCLOPRAMIDE HCL 10 MG TAB PO SCH ×2 (09:00→12:30)
[2022-05-04 09:26] LABS: ANION GAP 11.8 mmol/L (8-16); CALCIUM 8.5 mg/dL (8.4-10.2); CREATININE, SERUM 0.63 mg/dL (0.72-1.25); POTASSIUM 3.8 mmol/L (3.5-5.1)
[2022-05-04] MEDS ORDERED: Guaifenesin/Dextromethorphan PO (09:29)
[2022-05-04] MEDS ORDERED: AVYCAZ 2.5 GRA2.5 GM IV (09:29)
[2022-05-04] MEDS ORDERED: Multivitamins/Minerals PO (09:29)
[2022-05-04] MEDS ORDERED: Valsartan/Sacubitril 24MG/26MG PO (09:29)
[2022-05-04] MEDS ORDERED: NYSTATIN100000 UNI PO (09:29)
[2022-05-04] MEDS ORDERED: B-1100 MG PO (09:29)
[2022-05-04] MEDS ORDERED: TOPROL XL50 MG PO (09:29)
[2022-05-04] MEDS ORDERED: Lidocaine Patch TP (09:29)
[2022-05-04] MEDS ORDERED: ONDANSETRON ODT4 MG PO (09:29)
[2022-05-04] MEDS ORDERED: MELATONIN3 MG PO (09:29)
[2022-05-04] MEDS ORDERED: HYDRALAZINE HCL25 MG PO (09:29)
[2022-05-04] MEDS ORDERED: CIPROFLOXACIN500 MG PO (09:29)
[2022-05-04] MEDS ORDERED: METOCLOPRAMIDE10 MG PO (09:29)
[2022-05-04] MEDS ORDERED: THORAZINE25 MG PO (09:36)
[2022-05-04 09:58] VITALS: BP 126/75
[2022-05-04] MEDS: APIXABAN 5 MG TABLET PO SCH (10:42)
[2022-05-04] MEDS: CIPROFLOXACIN 500 MG TAB PO SCH (10:42)
[2022-05-04] MEDS: VALSARTAN/SACUBITRIL 24MG/26MG 1 EA TAB PO SCH (10:42)
[2022-05-04] MEDS: MULTIVITAMINS/MINERALS TAB PO SCH (10:42)
[2022-05-04] MEDS: METOPROLOL SUCCINATE 50 MG TAB XL PO SCH (10:42)
[2022-05-04] MEDS: PANTOPRAZOLE SOD 40 MG TABEC PO SCH (10:42)
[2022-05-04] MEDS: ASPIRIN 81 MG CHEW TAB PO SCH (10:43)
[2022-05-04] MEDS: HYDRALAZINE HCL 25 MG TAB PO SCH (13:03)
[2022-05-04 14:17] VITALS: BP 137/70
[2022-05-04 16:38] VITALS: BP 105/82
== END 2022-05-04 16:38 | disposition home or self-care (01) | DRG 871 ==
LOC: ER 19:53 → ERHOLD 23:47 → ICU 04-26 01:05 → MED/SURG 04-26 14:37
PROVIDERS: ADMIT Internal Medicine; ATTEND Internal Medicine
PROC: 3E03329 Introduction of Other Anti-infective into Peripheral Vein, Percutaneous Approach (ICD-10-PCS; principal; 2022-04-25)
PROC: 02HV33Z Insertion of Infusion Device into Superior Vena Cava, Percutaneous Approach (ICD-10-PCS; 2022-05-03)
DX: A41.53 Sepsis due to Serratia (principal); G92.8 Other toxic encephalopathy; I26.99 Other pulmonary embolism without acute cor pulmonale; J18.9 Pneumonia, unspecified organism; R65.21 Severe sepsis with septic shock; I50.22 Chronic systolic (congestive) heart failure; E87.20 Acidosis, unspecified; Z16.24 Resistance to multiple antibiotics; I11.0 Hypertensive heart disease with heart failure; I48.0 Paroxysmal atrial fibrillation; E78.5 Hyperlipidemia, unspecified; E11.9 Type 2 diabetes mellitus without complications; I25.10 Atherosclerotic heart disease of native coronary artery without angina pectoris; K21.9 Gastro-esophageal reflux disease without esophagitis; N40.0 Benign prostatic hyperplasia without lower urinary tract symptoms; J30.9 Allergic rhinitis, unspecified; E87.6 Hypokalemia; R06.6 Hiccough; M47.817 Spondylosis without myelopathy or radiculopathy, lumbosacral region; I25.2 Old myocardial infarction; Z87.891 Personal history of nicotine dependence; Z95.5 Presence of coronary angioplasty implant and graft; Z87.11 Personal history of peptic ulcer disease; Z20.822 Contact with and (suspected) exposure to COVID-19
CPT/HCPCS: 36415; 36569; 70450; 71045; 71260; 72141; 72146; 72148; 72197; 74177; 78802; 80048; 80053; 81001; 82550; 82553; 82948; 83605; 83735; 83880; 84100; 84484; 85025; 85610; 85730; 87040; 87071; 87086; 87186; 87205; 87324; 87400; 87449; 93005; 93312; 93320; 93325; 94799; 99284; A9570; J0456; J0692; J1580; J1817; J2001; J2185; J2405; J2543; J3370; J3411; J7030; J7050; Q9967